=== PATIENT | female | born 1945 | race Caucasian/White ===

== ENCOUNTER 2016-07-12 05:42 | Inpatient (IN) | payer MEDICARE ==
[2016-07-11 14:05] LABS: APPEARANCE CLEAR (CLEAR); BILIRUBIN NEGATIVE (NEGATIVE); COLOR STRAW (YELLOW); GLUCOSE NEGATIVE (NEGATIVE); KETONE NEGATIVE (NEGATIVE); LEUKOCYTE ESTERASE NEGATIVE (NEGATIVE); NITRITE NEGATIVE (NEGATIVE); PROTEIN 1+ mg/dL (NEGATIVE); UROBILINOGEN NORMAL (NORMAL)
[2016-07-11 14:06] LABS: BACTERIA FEW /hpf (NONE SEEN); EPITHELIAL CELLS OCC /hpf (0-5); RED CELLS - URINE OCC /hpf (0-5); WHITE CELLS - URINE OCC /hpf (0-5)
[2016-07-11 14:14] LABS: HEMATOCRIT 36.6 % (36.0-48.0); MCH 30.2 pg (26.0-34.0); MCHC 32.8 g/dL (31.0-37.0); MCV 92.2 fL (80.0-100.0); MEAN PLATELET VOLUME 13.3 fL (7.4-10.4); RBC 3.97 10x6/uL (4.00-5.40); RDW 13.7 % (11.5-14.5); WBC 7.6 10x3/uL (4.8-10.8)
[2016-07-11 14:23] LABS: APTT 26.6 SECONDS (22.8-39.4); INR 1.05 (0.85-1.17); PROTIME 13.6 SECONDS (11.6-15.0)
[2016-07-11 14:28] LABS: ALBUMIN 4.3 g/dL (3.4-5.0); ANION GAP 18.1 mmol/L (8-16); BILIRUBIN - TOTAL 0.26 mg/dL (0.2-1.3); CALCIUM 9.6 mg/dL (8.5-10.1); CARBON DIOXIDE 24.9 mmol/L (21.0-32.0); CREATININE - SERUM 1.4 mg/dL (0.6-1.3); PROTEIN - SERUM 7.7 g/dL (6.4-8.2)
[~2016-07-12] VITALS: Ht 157.5 cm; Wt 85.1 kg
[2016-07-12] VITALS (55 sets, daily range): BP systolic 111–191; BP diastolic 41–83; Ht 157.5 cm; Wt 85.1 kg
[~2016-07-12 05:42] MED LIST: ACULAR 0.5 % OPH5 ML LEFT EYE; CALAN SR240 MG PO; CATAPRES0.1 MG PO; FUROSEMIDE20 MG PO; GEMFIBROZIL600 MG PO; GLUCOPHAGE1000 MG PO; HUMALOG 30100 UNITS/ SC; ISTALOL LEFT EYE; LANTUS INSULIN10 ML SC; LIPITOR80 MG PO; LISINOPRIL10 MG PO; MOBIC7.5 MG PO; PEPCID20 MG PO; PLAVIX75 MG PO; SIMBRINZA 1%-0.28 ML LEFT EYE; TERAZOSIN HCL2 MG PO
[2016-07-12 07:05] LABS: POTASSIUM - SERUM 3.9 mmol/L (3.5-5.1)
--- NOTE | 2016-07-12 10:45 | NUR ---
RECIEVED TO ROOM CV05 VIA BED WITH HOSPITAL STAFF. O2 AT 9L SIMPLE MASK. PLASMALYTE INFUSING AT 100 CC/HR. CLEVIPREX AT 11 CC/HR. PT EASILY AROUSABLE. ICE PACK APPLIED TO RIGHT NECK. ULRICH CATH WITH CLEAR YELLOW URINE. TEDS AND SCDS IN PLACE. LEFT A-LINE WITH GOOD WAVE FORM NOTED.
--- NOTE | 2016-07-12 14:45 | NUR ---
DR. ESCAMLILA AWARE OF DECREASED URINE OUTPUT. NO NEW ORDERS.
--- NOTE | 2016-07-12 18:37 | NUR ---
DR. MAO AT BEDSIDE. PT DENIES CURRENT NEEDS OR QUESTIONS.
--- NOTE | 2016-07-12 19:30 | NUR ---
SHIFT ASSESSMENT COMPLETED. SEE ASSESSMENT FLOWSHEET. NEURO INTACT. HX OF STROKE WITH RIGHT SIDE WEAKNESS SOMEWHAT. PUPILS NOT REACTIVE TO LIGHT AT THIS TIME. HX OF CATARACTS/INCREASED PRESSURES TO EYES. LEFT RADIAL A-LINE INTACT. FLEXION BOARD INTACT. CAP REFILL <3 SECONDS. TITRATING CLEVIPREX TO KEEP SBP , 140MMHG. WILL MONITOR.
--- NOTE | 2016-07-12 21:45 | NUR ---
2100 MEDS GIVEN. FSBS ASSESSED. SUGAR-297. WILL MONITOR.
--- NOTE | 2016-07-12 23:40 | NUR ---
REASSESSMENT COMPLETED. SEE ASSESSMENT FLOWSHEET. NEURO INTACT. NO NEW ACUTE CHANGES NOTED. AWAKENS EASILY AND ANSWERS QUESTIONS APPROPRIATELY. WILL MONITOR.
[2016-07-13] VITALS (59 sets, daily range): BP systolic 102–163; BP diastolic 34–91
--- NOTE | 2016-07-13 01:25 | NUR ---
PULLED UP IN BED PER REQUEST FOR SLIDING DOWN. REPOSITIONED IN BED. TITRATING CLEVIPREX GTT TO EFFECT. WILL MONITOR.
--- NOTE | 2016-07-13 01:45 | NUR ---
PO CLONIDINE GIVEN SCHEDULED.
--- NOTE | 2016-07-13 03:15 | NUR ---
REASSESSMENT COMPLETED. SEE ASSESSMENT FLOWSHEET. DECREASED CLEVIPREX GTT TO 4MG/HR. EMPTIED FAINA DRAIN OF SEROSANGUINOUS DRAINAGE. PLACED SUPPLIED AT BEDSIDE FOR UPCOMING POSSIBLE REMOVAL OF FAINA DRAIN. WILL MONITOR.
--- NOTE | 2016-07-13 05:00 | NUR ---
DECREASED CLEVIPREX TO 3MG/HR.
--- NOTE | 2016-07-13 06:00 | NUR ---
FAMILY AT BEDSIDE FOR VISITATION. QUESTIONS ANSWERED. BROUGHT IN EYE DROPS FROM HOME AND GAVE INSTRUCTIONS ON HOW TO GIVE THEM. WILL MONITOR.
--- NOTE | 2016-07-13 13:30 | NUR ---
CLEVIPREX TITRATED OFF.
--- NOTE | 2016-07-13 13:33 | NUR ---
1100 ASSESSMENT UNCHANGED EXCEPT NOTED. KERI NICOLAS'D PER ORDER.
--- NOTE | 2016-07-13 19:15 | NUR ---
SHIFT ASSESSMENT COMPLETED. SEE ASSESSMENT FLOWSHEET. NEURO INTACT. EQUAL AND STRONG HAND GRASP BILATERALLY. O2 @ 2LPM/NC. LEFT SC CVL INTACT @ 30ML/HR. DUE TO VOID. DENIES NEED TO URINATE AT THIS TIME. WILL MONITOR.
--- NOTE | 2016-07-13 20:42 | NUR ---
2100 MEDS GIVEN. FSBS ASSESSED-311, INSULIN GIVEN PRESCRIBED. WILL MONITOR.
--- NOTE | 2016-07-13 21:10 | NUR ---
CLEVIPREX CONNECTED AND TURNED ON TO GET B/P < 140MMHG. FAMILY AT BEDSIDE, UPDATE GIVEN. WILL MONITOR.
--- NOTE | 2016-07-13 22:00 | NUR ---
CLEVIPREX TURNED OFF. WILL MONITOR.
[2016-07-14] VITALS (28 sets, daily range): BP systolic 84–160; BP diastolic 37–66
--- NOTE | 2016-07-14 | NUR ---
REASSESSMENT COMPLETED. SEE ASSESSMENT FLOWSHEET. NO NEW ACUTE CHANGES NOTED. NEW BAG OF PLASMALYTE HUNG. WILL CONTINUE TO MONITOR.
--- NOTE | 2016-07-14 01:35 | NUR ---
ASSISTED WITH SITTING UP ON SIDE OF BED TO BLOW NOSE. SMALL AMT OF BLOODY DRAINAGE NOTED. ASSISTED TO BATHROOM TO ATTEMPT TO URINATE. CLEAR, YELLOW URINE NOTED-200ML. WASHED HER HANDS. BACK TO BED WITH ASSIST. UNSTEADY GAIT SOMEWHAT. HUMIDIFICATION APPLIED TO O2. WILL MONITOR.
--- NOTE | 2016-07-14 03:40 | NUR ---
REASSESSMENT COMPLETED. SEE ASSESSMENT. NO NEW ACUTE CHANGES NOTED. AWAKENS EASILY. NO NEURO CHANGES.
--- NOTE | 2016-07-14 05:00 | NUR ---
ASSISTED UP TO BATHROOM TO VOID. MISSED THE NURSES' HAT BUT STREAM WAS MORE FORCEFUL AND LONGER THAN LAST VOID. NEEDS ASSISTANCE WITH AMBULATING. HER KNEES AREN'T "AWAKE" YET. BACK TO BED. MONITORS AND IVF TURNED BACK ON. WILL MONITOR.
--- NOTE | 2016-07-14 05:35 | NUR ---
AM LABS DRAWN FROM LEFT SC CVL. ASSISTED WITH TURNING TO LEFT SIDE. WILL MONITOR.
[2016-07-14 05:51] LABS: CARBON DIOXIDE 22.5 mmol/L (21.0-32.0); CREATININE - SERUM 2.3 mg/dL (0.6-1.3)
[2016-07-14 05:52] LABS: HEMATOCRIT 28.7 % (36.0-48.0); HEMOGLOBIN 9.2 g/dL (12-16); MCH 29.7 pg (26.0-34.0); MCHC 32.1 g/dL (31.0-37.0); MCV 92.6 fL (80.0-100.0); MEAN PLATELET VOLUME 13.3 fL (7.4-10.4); POTASSIUM - SERUM 4.5 mmol/L (3.5-5.1); RBC 3.1 10x6/uL (4.00-5.40); RDW 13.8 % (11.5-14.5)
--- NOTE | 2016-07-14 06:37 | NUR ---
AM LAB GLUCOSE TREATED WITH SLIDING SCALE INSULIN. SISTER AND DAUGHTER LEAVING BEDSIDE. WILL MONITOR.
--- NOTE | 2016-07-14 07:50 | NUR ---
UP TO CHAIR FOR BREAKFAST.
--- NOTE | 2016-07-14 12:51 | OP ---
PATIENT NAME: ADRIA KHALIL MEDICAL RECORD: [id number] :47 LOCATION:[id number] ADMISSION DATE:07/12/16 SURGEON: BERTRAND ESCAMILLA MD DATE OF OPERATION: 07/12/2016 SURGEON: Bertrand Escamilla MD. ANESTHESIA: General endotracheal, Dr. Rodriguez. OPERATION PERFORMED: Right carotid endarterectomy with patch angioplasty. PREOPERATIVE DIAGNOSIS: Critical right internal carotid artery stenosis. POSTOPERATIVE DIAGNOSIS: Critical right internal carotid artery stenosis. INDICATION FOR OPERATION: Critical right internal carotid artery stenosis. FINDINGS AT OPERATION: Severe greater than 90% area of stenosis of the takeoff right internal carotid artery. There were no EEG changes with clamping or unclamping of the carotid artery. ESTIMATED BLOOD LOSS: Less than 100 cc. DESCRIPTION OF PROCEDURE: After informed consent, adequate preoperative medication evaluation, the patient was brought to the operating room, placed on the table in the supine position. After induction of general endotracheal anesthesia and application of appropriate monitoring devices, the right neck and chest were prepped and draped in a sterile field, utilizing Betadine scrub, alcohol, and Betadine solution. A Betadine-impregnated drape was also used. An oblique incision was made in the skin crease. Dissection carried down the fascia. Hemostasis maintained with electrocautery. Facial vein was identified and divided. Utilizing sharp dissection, the common carotid, internal carotid arteries were dissected free from surrounding structures, protecting the neurological structures. The patient was given a calculated dose of heparin, after 3 minutes, clamps were applied. After 2 minutes, no EEG changes. The arteriotomy was made and extended with Hill scissors. Artery underwent endarterectomy sharply. Artery underwent extensive debridement and irrigation. Utilizing a CorMatrix vascular patch and running 7-0 Prolene suture, the arteriotomy was closed with patch angioplasty technique. All maneuvers to remove trapped air were performed. The clamps were removed sequentially. There were no EEG changes. The patient was given a calculated dose of protamine to reverse the heparin. Hemostasis was assured. A #7 Elliot-Daly drain was left in the depth of wound and brought through the base of the neck. Neck was again irrigated. Instrument count and sponge count were correct times 2. Neck was closed in layers utilizing 3-0 Vicryl on the platysma, 5-0 subcuticular Monocryl on the skin. Sterile dressings were applied. The patient tolerated the procedure well and was transferred to the ICU in satisfactory condition. TRANSINT:[id number] Voice Confirmation ID: [id number] DOCUMENT ID: [id number] OPERATIVE REPORT [id number] ADRIA KHALIL EDWARD MD at 1251 CC: [id number] DICTATION DATE: 07/12/16 1012 ANIMAL CARETAKER SUPERVISOR: 07/12/16 1225 [place] [address]
--- NOTE | 2016-07-14 12:51 | HP ---
PATIENT: ADRIA KHALIL [facility] MEDICAL RECORD: [id number] ACCOUNT: [id number] LOCATION:[facility]05 : 46 ADMISSION DATE: 07/12/16 HISTORY AND PHYSICAL EXAMINATION ADRIA Spencer (71yo, F) ID# [id number]. Date/Time07/11/2016 10:90SWFCD1946Service Dept.NPP_[facility] ClinicProviMarisa ESCAMILLA MDInsuranceMed Primary: [employer] (POS) Insurance # : [id number] Policy/Group # : [id number] Employer Name : UNKNOWN Prescription: ORX - Member is eligible. Chief Complaint Followup: Carotid artery stenosis GENEVA stenosis scheduled for RCEA 07/12/16 [facility] (ERX): [phone], [place] [address], , Vitals BP:150/90 sitting R arm 07/11/2016 10:28 amHR:60R/R 07/11/2016 10:28 amHt:5 ft 2 in 07/11/2016 10:12 amWt:172 lbs 07/11/2016 10:27 amBMI:31.5 07/11/2016 10:27 amAllergies Reviewed Allergies NKDAMedications Reviewed Medications Accu-Chek FastClix TEST TID06/09/16 filledsurescriptsAccu-Chek SmartView Test Buqurh39/18/17 filledPRESCRIPTION SOLUTIONSatorvastatin 80 mg tablet TK 1 T PO Q NIGHT06/11/16 filledPRESCRIPTION SOLUTIONScloNIDine HCl 0.1 mg tablet Take 1 tablet(s) 3 times a day by oral route.07/08/16 filledPRESCRIPTION SOLUTIONSclopidogrel 75 mg tablet Take 1 tablet(s) every day by oral route.07/01/16 filledPRESCRIPTION SOLUTIONSfamotidine 20 mg /15/17 filledPRESCRIPTION SOLUTIONSFluad 65yr up(PF)45 mcg(15 mcgx3)/0.5 mL intramuscular syringe ADM 0.5ML IM UTD105/19/15 filledPRESCRIPTION SOLUTIONSfluticasone 50 mcg/actuation nasal spray,iycspoayao60/10/15 filledPRESCRIPTION SOLUTIONSfurosemide 20 mg tablet TK 2 TS PO QAM UTD06/08/16 filledPRESCRIPTION SOLUTIONS gemfibrozil 600 mg oynsrz68/13/17 filledPRESCRIPTION SOLUTIONSHumaLOG 100 unit/mL subcutaneous gisvuzal98/13/17 filledPRESCRIPTION SOLUTIONSINSULIN SYRG MIS 1ML/30G005/20/16 filledPRESCRIPTION SOLUTIONSINSULIN SYRG MIS 1ML/31G006/21/16 filledPRESCRIPTION SOLUTIONSinsulin syringe-needle U-100 1 mL 30 gauge x 7/16" U WITH INSULIN PRN UP TO QID05/21/16 filledsurescriptsinsulin syringe-needle U-100 1 mL 31 gauge x 5/16" USE WITH INSULIN NEEDED UP TO FOUR TIMES D006/21/16 filledsurescriptsLantus 100 unit/mL subcutaneous solution INJECT 10 UNITS QAM AND 50 UNITS BEFORE A MEAL QPM07/03/16 filledPRESCRIPTION SOLUTIONSlisinopril 10 mg jhueuo21/20/17 filledPRESCRIPTION SOLUTIONSmeloxicam 7.5 mg tablet TK 1 T PO QD PC06/17/16 filledPRESCRIPTION SOLUTIONSmetFORMIN 1,000 mg /27/17 filledPRESCRIPTION SOLUTIONSprednisoLONE acetate 1 % eye drops,hkemoskgdk38/26/16 filledPRESCRIPTION SOLUTIONSterazosin 2 mg capsule TK 1 C PO BID06/17/16 filledPRESCRIPTION SOLUTIONSTravatan Z 0.004 % eye drops01/11/16 filledPRESCRIPTION SOLUTIONSverapamil ER (SR) 240 mg tablet,extended release TK 1 T PO D007/08/16 filledPRESCRIPTION SOLUTIONSProblems HISTORY AND PHYSICAL [id number] ADRIA KHALIL Reviewed Problems Diabetes mellitus Hyperlipidemia Essential hypertension Carotid artery stenosis, Right Renal impairment - baseline Cr 1.7 Family History Discussed Family History Mother- Cerebrovascular accidentSocial History Discussed Social History Cardiology Smoking Status: Never smoker High Cholesterol: Y High blood pressure: Y Overweight: Y Obese: Y Alcohol intake: None Surgical History Reviewed Surgical History Other - cataract Other - hysterectomy Other - tonsilectomy 07/09/16 no PA required for 07/12/16 sx per Delicia Jin @ [facility] [place]. 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 HPI Cerebral Vascular Disease Reported by patient. Associated Symptoms: no headache; no nausea; no vomiting; no tinnitus; no difficulty speaking; no lethargy; no fever; no chills; no palpitations; no syncope; no loss of consciousness Bilateral carotid stenosis\\ right greater than the left ROS HISTORY AND PHYSICAL [id number] ADRIA KHALIL Patient reports vision change (OD) but reports no dry eyes and no irritation; intraocular injections Recent cataracts. She reports no jugular vein distension and no swollen glands; carotid bruit right. She reports shortness of breath when walking but reports no chest pain, no arm pain on exertion, no shortness of breath when lying down, no palpitations, and no known heart murmur. She reports muscle aches and muscle weakness but reports no arthralgias/joint pain, no back pain, and no swelling in the extremities. She reports numbness (lower extremities bilaterally) but reports no loss of consciousness, no weakness, no seizures, no dizziness, and no headaches. She reports no fever, no night sweats, no significant weight gain, no significant weight loss, and no exercise intolerance. She reports no difficulty hearing and no ear pain. She reports no frequen t nosebleeds and no nose/sinus problems. She reports no sore throat, no bleeding gums, no snoring, no dry mouth, no mouth ulcers, no oral abnormalities, and no teeth problems. She reports no cough, no wheezing, no shortness of breath, and no coughing up bl o od. She reports no abdominal pain, no vomiting, normal appetite, no diarrhea, not vomiting blood, no nausea, and no constipation. She reports no incontinence, no difficulty urinating, no hematuria, and no increased frequency. She reports no abnormal mole, no jaundice, and no rashes. She reports no depression, no sleep disturbances, feeling safe in relationship, and no alcohol abuse. She reports no fatigue. She reports no swollen glands and no bruising. She reports no runny nose, no sinus pressure, no itchi ng, no hives, and no frequent sneezing. ROS as noted in the HPI Physical Exam Patient is a 71-year-old female. Constitutional: General Appearance healthy-appearing, well developed, and overweight. Level of Distress NAD. Ambulation ambulation with walker. Cardiovascular: Apical Impulse not displaced or no thrill. Heart Auscultation normal s1 and s2, no rubs or gallops, and RRR and murmur (systolic ejection murmur). Arterial Pulses no abdominal aorta bruits, femoral bruits, or popliteal bruits and 2+ bilateral, carotid 2+ bilateral, femoral 2+ bilateral, popliteal 2+ bilateral, and dorsalis pedis 2+ bilateral. Edema no edema or varicosities. Lungs: Repiratory Effort no dyspnea. Percussion no hyperresonance or dullness or flatness. Auscultation no wheezing, rhonchi, or rales / crackles and breathing sounds normal, good air movement, and CTA except as noted. Abdomen: Bowl Sounds normal. Inspection and Palpation no tenderness, guarding, masses, or rebound tenderness and soft and non-distended. Liver non-tender and no hepatomegaly. Spleen non-tender and no splenomegaly. Hernia none palpable. Musculoskeletal System: Gait And Stance wide-based and irregular gait and stance. Digits and Nails normal nails and no cyanosis. Neurologic: Cranial Nerves grossly intact. Reflexes DTRs 2+ bilaterally throughout. Sensation grossly intact. Lymph Nodes: Lymph Nodes no cervical LAD, supraclavicular LAD, axillary LAD, or inguinal LAD. Eyes: Lids and Conjunctivae no discharge or pallor and non-injected. Pupils PERRLA. Cornea grossly intact. EOM EOMI. Lens clear. Sclera non-icteric. HISTORY AND PHYSICAL [id number] ADRIA KHALIL AMARIS Neck: Neck no masses or enlarged lymph nodes and supple, trachea midline, and carotid bruits (bilateral). Thyroid no enlargement or nodules and non-tender. Skin: Inspection and Palpation no rash, lesions, ulcers, jaundice, or abnormal nevi. Assessment / Plan bilateral carotid stenosis Right greater than the left 1. Carotid artery stenosis - Right I65.23: Occlusion and stenosis of bilateral carotid arteries CAROTID STENOSIS: CARE INSTRUCTIONS 2. Essential hypertension I10: Essential (primary) hypertension HIGH BLOOD PRESSURE: CARE INSTRUCTIONS LEARNING ABOUT HIGH BLOOD PRESSURE 3. Hyperlipidemia E78.5: Hyperlipidemia, unspecified HIGH CHOLESTEROL: CARE INSTRUCTIONS 4. Renal impairment N28.9: Disorder of kidney and ureter, unspecified 5. Diabetes mellitus E11.9: Type 2 diabetes mellitus without complications Discussion Notes bilateral carotid artery disease History of stroke History of TIA History of the visual disturbances I have discussed her disease process with her in detail as well as the alternative methods of treatment. We discussed right carotid endarterectomy and the expected benefits and risk included bleeding, infection, stroke, l oss of limb, and . She understands all of the above and wishes to proceed with planned procedure. Return to Office to see eBrtrand Escamilla MD at [facility] on or around 07/12/2016 Bertrand Escamilla MD for Surgery at [facility]_SURGERY SCHEDULE on 07/12/2016 at 07:30 AM BERTRAND ESCAMILLA MD at 1251 CC: [id number] DICTATION DATE: 07/11/16 1015 FEDERAL JUDGE: ROSMERY 07/11/16 1246 ADM IN [facility] [address] [place] [address]
--- NOTE | 2016-07-14 15:56 | NUR ---
PT NOTED TO BE ASLEEP WITH HR IN THE UPPER 40'S. WOKE PT UP HR REMAINS IN THE 40'S. BP 87/41. EKG OBTAINED. ABG AND STAT LAB.
[2016-07-14 16:25] LABS: ANION GAP 18.7 mmol/L (8-16); CALCIUM 7.7 mg/dL (8.5-10.1); CARBON DIOXIDE 21.5 mmol/L (21.0-32.0); CREATININE - SERUM 2.5 mg/dL (0.6-1.3)
[2016-07-14 16:29] LABS: POTASSIUM - SERUM 5.2 mmol/L (3.5-5.1)
--- NOTE | 2016-07-14 16:38 | NUR ---
DR. ESCAMILLA NOTIFIED OF EKG CHANGE. NEW ORDER RECIEVED.
--- NOTE | 2016-07-14 17:05 | NUR ---
SPOKE WITH DR. CURIEL ABOUT CONSULT. AGREES WITH DR. ESCAMILLA'S ARNEL TREATMENT PLAN AND WILL BE UP TO SEE THE PT SHORTLY.
[2016-07-14 17:22] LABS: HEMATOCRIT 27.9 % (36.0-48.0); MCH 30.4 pg (26.0-34.0); MCHC 32.3 g/dL (31.0-37.0); MCV 94.3 fL (80.0-100.0); MEAN PLATELET VOLUME 13.3 fL (7.4-10.4); RBC 2.96 10x6/uL (4.00-5.40); RDW 13.7 % (11.5-14.5); WBC 9.5 10x3/uL (4.8-10.8)
--- NOTE | 2016-07-14 17:31 | NUR ---
DOBUTAMINE STARTED AT 1717 PER ORDER. PT NOW WITH HR OF 61. BP 112/49.
--- NOTE | 2016-07-14 18:12 | NUR ---
SPOKE WITH DR. BILLINGLSEY ABOUT CONSULT. NO ADDITIONAL ORDERS AT THIS TIME. WILL BE UP TO SEE PT SHORTLY. UPDATE GIVEN TO DR. ESCAMILLA. STATES HOLD VERAPAMIL AND CLONIDINE TONIGHT AND IN THE AM.
--- NOTE | 2016-07-14 19:40 | NUR ---
INSURANCE DEFENSE ATTORNEY PER FLOWSHEET. PT AWAKE AND ORIENTED. VSS. CM - JUNCTIONAL. DENIES SOB. IVFS INFUSING TO L DLSC, DSG C/D/I - SEE FLOWSHEET. R NECK SITE WNL. PT DENIES PAIN, "JUST A LITTLE SORE WITH SWALLOWING".. ALARMS ON AND C/L IN USE.
--- NOTE | 2016-07-14 19:55 | NUR ---
CM - SR 63, DOBUTAMINE GTT TO 3MCG/KG/MIN PER MD ORDER.
--- NOTE | 2016-07-14 20:00 | NUR ---
DR. BILLINGSLEY IN TO SEE PT. NEW ORDERS REC'D. PT UP TO BR. VOIDED 200ML YELLOW URINE - SAMPLE OBTAINED. NICOLASA-CARE PER PT. UP IN CHAIR.
--- NOTE | 2016-07-14 20:45 | NUR ---
DR. ESCAMILLA NOTIFIED OF CM - SR, SBP 139 AND STATUS REPORT. NEW ORDERS REC'D.
[2016-07-14 20:49] LABS: CREATININE - URINE 132.3 mg/dL (30-125); PRO/CRE RATIO URINE 0.3 mg/g; PROTEIN - URINE 35.9 mg/dL (0.0-11.9)
[2016-07-14 20:51] LABS: APPEARANCE CLEAR (CLEAR); BILIRUBIN NEGATIVE (NEGATIVE); COLOR YELLOW (YELLOW); GLUCOSE NEGATIVE (NEGATIVE); KETONE NEGATIVE (NEGATIVE); LEUKOCYTE ESTERASE TRACE (NEGATIVE); NITRITE NEGATIVE (NEGATIVE); PROTEIN NEGATIVE (NEGATIVE); UROBILINOGEN NORMAL (NORMAL)
[2016-07-14 20:52] LABS: BACTERIA FEW /hpf (NONE SEEN); HYALINE CAST 0-5 /lpf (NONE SEEN); MUCUS <1+ /lpf (NONE SEEN); RED CELLS - URINE 0-5 /hpf (0-5)
--- NOTE | 2016-07-14 21:12 | NUR ---
FAMILY AT BS. PT UP IN CHAIR EATING SALAD. VSS. NO SIGN OF DISTRESS..UPDATE GIVEN AND QUESTIONS ANSWERED.
--- NOTE | 2016-07-14 21:45 | NUR ---
COMPLETE BATH AND GOWN CHANGE. PT BRUSHED TEETH. BACK TO BED. ALARMS ON AND C/L IN REACH. C/O KNEE SORENESS - ELEVATED ON PILLOW, PT DENIES NEED FOR PRN PAIN MED.
--- NOTE | 2016-07-14 23:18 | NUR ---
UP TO BSC. VOIDED 100ML CLEAR, YELLOW URINE. NICOLASA-CARE PER PT - HANDS WASHED AND BACK TO BED. PT AGAIN C/O R KNEE PAIN - ADMIN PRN ULTRAM - WILL CONT CLOSE MONITORING. SEE REASSESSMENT.
[2016-07-15] VITALS (33 sets, daily range): BP systolic 104–202; BP diastolic 44–80
--- NOTE | 2016-07-15 01:02 | NUR ---
RESTING WITH EYES CLOSED, VSS. NO SIGN OF DISTRESS.
--- NOTE | 2016-07-15 01:28 | NUR ---
UP TO BR. VOIDED 375ML CLEAR, YELLOW URINE. NICOLASA-CARE PER PT AND BACK TO BED. ALARMS ON AND C/L IN REACH.
--- NOTE | 2016-07-15 03:37 | NUR ---
PT UP TO BR. REASSESSMENT PER FLOWSHEET, NO ACUTE CHANGES. NEURO WNL. R NECK SITE UNCHANGED. PT DENIES NEEDS.
--- NOTE | 2016-07-15 05:11 | NUR ---
AM LAB DRAWN. PT ASSISTED TO R SIDE WITH PILLOWS. VSS.
[2016-07-15 05:18] LABS: HEMATOCRIT 26.5 % (36.0-48.0); HEMOGLOBIN 8.6 g/dL (12-16); MCH 30.1 pg (26.0-34.0); MCHC 32.5 g/dL (31.0-37.0); MCV 92.7 fL (80.0-100.0); MEAN PLATELET VOLUME 13.1 fL (7.4-10.4); RBC 2.86 10x6/uL (4.00-5.40); RDW 13.6 % (11.5-14.5)
[2016-07-15 05:22] LABS: WBC 6.5 10x3/uL (4.8-10.8)
[2016-07-15 05:30] LABS: ANION GAP 14.2 mmol/L (8-16); CALCIUM 7.8 mg/dL (8.5-10.1); CARBON DIOXIDE 23.2 mmol/L (21.0-32.0); CREATININE - SERUM 2.1 mg/dL (0.6-1.3)
[2016-07-15 05:34] LABS: POTASSIUM - SERUM 4.4 mmol/L (3.5-5.1)
--- NOTE | 2016-07-15 06:29 | NUR ---
AM LAB WNL. FAMILY AT BS VISITING. PT UP IN CHAIR AFTER GOING TO BR. HAIR WASHED AND COMBED. VSS. C/L IN REACH.
--- NOTE | 2016-07-15 07:26 | NUR ---
DR. ESCAMILLA NOTIFIED OF SBP 160-170 - NEW ORDER REC'D. DOBUTAMINE D/C'D. RENAL U/S IN PROCESS. REPORT GIVEN.
--- NOTE | 2016-07-15 09:04 | NUR ---
FAMILY AT BEDSIDE FOR 0900 VISITATION. MORNING MEDICATIONS GIVEN. PT NOW RESTING IN BED BEFORE PHYSICAL THERAPY. VOLTAREN GEL HAS BEEN APPLIED TO KNEE. RIGHT KNEE SWOLLEN AND RED. PT C/O PAIN AND STIFFNESS WITH AMBULATION WHEN UP FOR TOILETING. 500ML OF YELLOW URINE OUTPUT.
--- NOTE | 2016-07-15 09:16 | NUR ---
CAME OUT TO REVIEW EYE DROPS ADMINISTRATION SCHEDULE. SAYS THERE HAS BEEN SOME CONFUSION WITH THE MEDICATIONS. SAYS PATIENT IS SUPPOSED TO GET ISTALOL ONCE DAILY, SIMBRINZA BID, AND KETOROLAC TROMETHAMINE ONCE DAILY. REVIEWED HOME MEDICATION LIST AND SAYS IT IS INCORRECT. CORRECTED THE MED REC WHILE HE WAS PRESENT AND REVIEWED AGAIN.
--- NOTE | 2016-07-15 09:35 | NUR ---
STEP DAUGHTER [address] [phone] SISTER IN [facility] STAYING AT [facility] CAN BE REACHED AT [phone] VIKASH ALLEN
--- NOTE | 2016-07-15 10:15 | NUR ---
PIV TO LEFT ARM REMOVED, TIP INTACT. NO BLEEDING. PT UP TO TOILET. 500ML URINE OUTPUT.
--- NOTE | 2016-07-15 10:29 | NUR ---
Nutrition follow-up: Diet: Regular PO intake 100% of most meals Labs reviewed Will provide food choices and honor food preferences. RDN following.
--- NOTE | 2016-07-15 10:52 | NUR ---
PT UP WALKING WITH PHYSICAL THERAPY AT THIS TIME. IS HAVING STILL HAVING PAIN AND STIFFNESS IN KNEES.
--- NOTE | 2016-07-15 11:15 | NUR ---
SPOKE WITH DR BILLINGSLEY WHILE HE WAS MAKING ROUNDS ABOUT ALLOWING PATIENT TO HAVE HER CLONIDINE 0.1MG FOR HER BP. HAS BEEN 170'S SBP. OK TO RESTART CLONIDINE. STILL HOLD VERAPAMIL. WANTS FLUIDS DISCONTINUED ONCE THE CURRENT BAG IS COMPLETED.
--- NOTE | 2016-07-15 12:30 | NUR ---
PT ASSISTED UP TO TOILET. 600ML YELLOW URINE OUTPUT.
--- NOTE | 2016-07-15 13:29 | NUR ---
PT SLEEPING AT THIS TIME. NO DISTRESS NOTED. 93% O2 SAT ON ROOM AIR.
--- NOTE | 2016-07-15 14:50 | NUR ---
PT UP IN CHAIR. HAS WALKED AFTERNOON WALK WITH PHYSICAL THERAPY. FULL LINEN CHANGE PROVIDED. PT DENIES ANY FURTHER NEEDS AT THIS TIME. CALL LIGHT IN REACH.
--- NOTE | 2016-07-15 15:57 | NUR ---
PT ASSISTED UP TO TOILET. 600ML LIGHT YELLOW URINE. HAD 450 ML LIGHT YELLOW URINE IN COLLECTION HAT FROM WHEN PHYSICAL THERAPY ASSISTED TO TOILET BEFORE WALKING.
--- NOTE | 2016-07-15 16:12 | NUR ---
PT MONITOR ALERTING TO SBP 180'S. RECHECKED. READING OF 202/80. GAVE CLONIDINE THAT WAS DUE AT 16:[address] ESCAMILLA
--- NOTE | 2016-07-15 17:00 | NUR ---
PT UP IN CHAIR FOR DINNER.
--- NOTE | 2016-07-15 17:30 | NUR ---
CURRENT BAG OF PLASMALYTE COMPLETE. WILL D/C ORDER ASKED BY DR BILLINGSLEY ONCE BAG FINISHED.
--- NOTE | 2016-07-15 18:04 | NUR ---
FAMILY AT BEDSIDE FOR VISITATION
--- NOTE | 2016-07-15 18:05 | NUR ---
WEANED PT OFF OF CLEVIPREX. SBP WAS 104. SUBSEQUENT READ WAS 124.
--- NOTE | 2016-07-15 19:35 | NUR ---
REC'D TO CARE, IN BED, RESTING. VSS. PT REPORTS "FEELING BETTER". ONLY C/O CHRONIC ARTHRITIC PAIN - L KNEE WITH SWELLING AND REDNESS NOTED, ELEVATED, WILL APPLY HEAT NEEDED. VSS. R NECK SITE WNL. NEURO WNL. ALARMS ON AND C/L IN REACH.
--- NOTE | 2016-07-15 21:00 | NUR ---
SISTERS AT BS. UPDATE GIVEN AND QUESTIONS ANSWERED.
--- NOTE | 2016-07-15 22:30 | NUR ---
NEURO WNL. PT UP TO BSC, VOIDED 250ML CLEAR, YELLOW URINE, NICOLASA-CARE PER PT. AND BACK TO BED.
--- NOTE | 2016-07-15 23:36 | NUR ---
REASSESSMENT PER FLOWSHEET. NO ACUTE CHANGES. ADMIN PRN ULTRAM FOR KNEE PAIN. UP IN CHAIR PER REQUEST, L LEG ELEVATED. ALARMS ON AND C/L IN REACH.
[2016-07-16] VITALS (24 sets, daily range): BP systolic 101–155; BP diastolic 43–67
--- NOTE | 2016-07-16 00:41 | NUR ---
RESTING WITH EYES CLOSED, VSS. NO SIGN OF DISTRESS.
--- NOTE | 2016-07-16 03:06 | NUR ---
PT UP TO BSC, SLOW GETTING AROUND. BACK TO BED. L LEG ELEVATED, PILLOWS FOR COMFORT. SEE REASSESSMENT. ALARMS ON AND C/L IN REACH.
--- NOTE | 2016-07-16 04:15 | NUR ---
PT ASSISTED TO R SIDE WITH PILLOWS FOR COMFORT. VSS.
--- NOTE | 2016-07-16 06:21 | NUR ---
FAMILY AT BS, UPDATE GIVEN AND QUESTIONS ANSWERED.. PT UP IN CHAIR. C/L IN REACH.
[2016-07-16 06:25] LABS: HEMATOCRIT 26.2 % (36.0-48.0); HEMOGLOBIN 8.4 g/dL (12-16); MCHC 32.1 g/dL (31.0-37.0); MCV 93.6 fL (80.0-100.0); MEAN PLATELET VOLUME 12.9 fL (7.4-10.4); RBC 2.8 10x6/uL (4.00-5.40); RDW 13.5 % (11.5-14.5); WBC 6.4 10x3/uL (4.8-10.8)
[2016-07-16 06:41] LABS: ALBUMIN 2.7 g/dL (3.4-5.0); ANION GAP 13.3 mmol/L (8-16); BILIRUBIN - TOTAL 0.25 mg/dL (0.2-1.3); CALCIUM 8.2 mg/dL (8.5-10.1); CREATININE - SERUM 1.6 mg/dL (0.6-1.3); POTASSIUM - SERUM 4.3 mmol/L (3.5-5.1)
--- NOTE | 2016-07-16 07:15 | NUR ---
REPORT RECIEVED FROM TAB MACHINE OPERATOR NURSE. PT RESTING IN RECLINER QUIETLY. NO S/SX OF ACUTE DISTRESS NOTED AT THIS TIME. VSS. INCISION TO R NECK WELL APPROXIMATED AND OPEN TO AIR. NO S/SX OF INFECTION NOTED. DRESSING TO RIGHT CHEST C/D/I. DOUG CHECKS WNL. CALL LIGHT WITHIN REACH. WILL CONT TO MONITOR FOR CHANGES. ASSESSMENT COMPLETE PER FLOWSHEET.
--- NOTE | 2016-07-16 07:45 | NUR ---
PT C/O KNEE PAIN TO LEFT KNEE. DR. CROFT AT BEDSIDE. REPORTED SWELLING AND REDNESS TO KNEE. URIC ACID LEVEL ORDERED.
--- NOTE | 2016-07-16 08:30 | NUR ---
URIC ACID LEVEL RECIEVED. CALLED DR. CROFT WITH RESULTS. STATES HE WOULD LIKE TO ORDER COLCHISINE, BUT WOULD LIKE TO GET THE ORDER APPROVED FROM [facility]. WILL CONTACT [facility] FOR APPROVAL.
--- NOTE | 2016-07-16 09:00 | NUR ---
UP WALKING WITH PT.
--- NOTE | 2016-07-16 11:00 | NUR ---
SPOKE WITH DR. MORAN. STATED IT WAS OKAY TO GIVE A ONE TIME DOSE OF COLCHICINE.
--- NOTE | 2016-07-16 13:00 | NUR ---
ASSISTED TO BSC. VOIDED 400CC OF LARA COLORED URINE.
--- NOTE | 2016-07-16 15:00 | NUR ---
FAMILY AT BEDSIDE.
--- NOTE | 2016-07-16 16:00 | NUR ---
Is the patient Alert and Oriented? Yes 0 * How many steps to enter\exit or inside your home? 3 0 * PCP DR. CROFT 0 * Pharmacy [facility] 0 * Preadmission Environment Home with Family 0 * ADLs Independent 0 * Equipment Walker 0 * List name and contact numbers for known caregivers / representatives who currently or will assist patient after discharge: SPOUSE: TINA [phone] OR [phone] 0 * Community resources currently utilized None 0 * Additional services required to return to the preadmission environment? No 0 * Can the patient safely return to the preadmission environment? Yes 0 * Has this patient been hospitalized within the prior 30 days at any hospital? No PATIENT IS AWAKE AND ALERT. SHE STATES SHE LIVES AT HOME WITH HER , TINA. HE WILL BE AVAILABLE TO DRIVE HER HOME AT DISCHARGE. PATIENT'S PCP IS DR. CROFT. SHE GETS HER MEDS FROM [facility]. PATIENT HAS A WALKER. SHE STATES SHE HAD HOME HEALTH MANY YEARS AGO BUT DOES NOT RECALL THE NAME OF THE AGENCY. PATIENT STATES THERE ARE 3 STEPS TO ENTER HER HOME. NO DISCHARGE NEEDS AT THIS TIME.
--- NOTE | 2016-07-16 19:15 | NUR ---
REC'D TO CARE, SITTING UP IN CHAIR. VSS. PT DENIES NEEDS AT THIS TIME. ALARMS ON AND C/L IN REACH.
--- NOTE | 2016-07-16 20:24 | NUR ---
JULIO CÉSAR AT BS PER PT REQUEST. B/P 108/34 NOW, DOPAMINE GTT AT 7MCG/KG/MIN.
--- NOTE | 2016-07-16 20:45 | NUR ---
PT VOIDED 250ML CLEAR, YELLOW URINE. COMPLETE BATH, PM CARE DONE. GOWN AND LINENS CHANGED. BACK TO BED.
--- NOTE | 2016-07-16 21:00 | NUR ---
SISTERS AT , UPDATE GIVEN AND QUESTIONS ANSWERED. ADMIN PO MED AND INSULIN PER ORDERS. L LEG ELEVATED ON PILLOW. C/L IN REACH.
--- NOTE | 2016-07-16 22:13 | NUR ---
REPOSITIONED TO R SIDE, KNEE ELEVATED. PRN ULTRAM GOVE PER REQUEST. VSS. DENIES OTHER NEEDS. C/L IN REACH.
--- NOTE | 2016-07-16 23:00 | NUR ---
REASSESSMENT PER FLOWSHEET. PT "UNCOMFORTABLE". UP TO BSC - NICOLASA-CARE DONE AND BARRIER CREAM APPLIED FOR C/O SORENESS. UP IN CHAIR PER REQUEST. VSS, C/L IN REACH.
[2016-07-17] VITALS (8 sets, daily range): BP systolic 102–158; BP diastolic 38–60
--- NOTE | 2016-07-17 01:30 | NUR ---
PT REMAINS UP IN CHAIR. RESTING WITH EYES CLOSED, VSS.
--- NOTE | 2016-07-17 02:20 | NUR ---
PT UP TO BSC WITH ASSIST. BACK TO CHAIR. STILL VERY SORE IN THE L KNEE - ELEVATED L LEG ON PILLOW. C/L IN REACH.
--- NOTE | 2016-07-17 03:42 | NUR ---
REASSESSMENT PER FLOWSHEET. VSS. NEURO WNL. PT DENIES ANY NEEDS AT THIS TIME. C/L IN REACH.
[2016-07-17 05:57] LABS: BASOPHILS 0.4 % (0.0-2.0); EOSINOPHILS 4.8 % (0-7); HEMATOCRIT 27.6 % (36.0-48.0); HEMOGLOBIN 8.9 g/dL (12-16); IMMATURE GRANULOCYTES 0.4 % (0-5); LYMPHOCYTES 21.7 % (15-50); MCHC 32.2 g/dL (31.0-37.0); MCV 92.9 fL (80.0-100.0); MEAN PLATELET VOLUME 12.5 fL (7.4-10.4); MONOCYTES 12.6 % (2-11); NEUTROPHILS 60.1 % (40-80); PLATELET COUNT 192 10x3/uL (130-400); RBC 2.97 10x6/uL (4.00-5.40); RDW 13.6 % (11.5-14.5); WBC 7.2 10x3/uL (4.8-10.8)
[2016-07-17 06:39] LABS: ANION GAP 15.3 mmol/L (8-16); CALCIUM 8.7 mg/dL (8.5-10.1); CREATININE - SERUM 1.6 mg/dL (0.6-1.3); POTASSIUM - SERUM 4.3 mmol/L (3.5-5.1)
--- NOTE | 2016-07-17 09:00 | NUR ---
PT UP IN CHAIR AT BEDSIDE. HAS BEEN ASSISTED TO BEDSIDE TOILET AND NOW IN CHAIR FOR BREAKFAST. FAMILY AT BEDSIDE. DR CROFT HAS BEEN IN TO SEE PATIENT. EXPECTS HER TO BE ABLE TO DISCHARGE THIS AFTERNOON. WILL BE AROUND HOSPITAL TODAY FOR WHEN SHE IS DISCHARGED INSTEAD OF DRIVING BACK HOME. PT LEFT KNEE IS STILL SWOLLEN. REDNESS HAS REDUCED SOEM FROM FRIDAY WHEN I WAS LAST ASSIGNED TO PATIENT. SHE IS MUCH MORE STIFF WITH MOVEMENT HOWEVER, AND WHEIGHT-BEARING HAS BECOME MUCH MORE DIFFICULT FOR AMBULATION. NO LONGER ABLE TO TOLERATE GOING TO RESTROOM AND HAS TO USE BEDSIDE COMMODE. PT STILL HAS NOT HAD A BOWEL MOVEMENT, AND SAYS WILL NOT GO HERE. BOWEL SOUNDS ARE AUDIBLE.
[2016-07-17] MEDS ORDERED: NORVASC5 MG PO (10:09)
[2016-07-17] MEDS ORDERED: LISINOPRIL10 MG PO (10:10)
[2016-07-17] MEDS ORDERED: ASPIRIN81 MG PO (10:10)
[2016-07-17] MEDS ORDERED: VOLTAREN100 GM TOPICAL (10:11)
--- NOTE | 2016-07-17 10:53 | NUR ---
PT GIVEN 2ND DOSE OF COLCHICINE REQUESTED BY JULI SPIVEY SO THAT PATIENT HAD BOTH DOSES THAT WERE DUE PRIOR TO HER LEAVING.
--- NOTE | 2016-07-17 11:30 | NUR ---
LEFT SUBCLAVIAN IV REMOVED, TIP INTACT. DISCHARGE TEACHING PROVIDED. REVIEWED NEW MEDICATIONS WITH PATIENT AND INSTRUCTED TO STOP VERAPAMIL. FOLLOW UP APPOINTMENTS REVIEWED.
--- NOTE | 2016-07-17 12:46 | NUR ---
PT ESCORTED TO CAR. ASSISTED IN TO CAR WITH HELP FROM PHYSICAL THERAPIST ABDOULAYE. ALL DISCHARGE PAPERWORK GIVEN TO . AGAIN REMINDED PATIENT AND TO STOP TAKING VERAPAMIL.
[2016-07-17 20:45] LABS: SPE - A/G RATIO 1.2 (0.7-1.7); SPE - ALPHA-1 GLOBULIN 0.3 g/dL (0.0-0.4); SPE - BETA GLOBULIN 0.8 g/dL (0.7-1.3); SPE - GAMMA GLOBULIN 0.6 g/dL (0.4-1.8); SPE - M-SPIKE Not Observed g/dL (Not Observed); SPE - TOTAL PROTEIN 5.6 g/dL (6.0-8.5)
--- NOTE | 2016-08-03 12:15 | DS ---
PATIENT:ADRIA VÁSQUEZ :47 MEDICAL RECORD: [id number] DISCHARGE SUMMARY ADMISSION DATE: 07/12/16 DISCHARGE DATE: 07/17/16 DISCHARGE DIAGNOSES: 1. Bilateral carotid stenosis. 2. Severe right internal carotid artery stenosis. 3. Acute renal failure. 4. Hypercholesterolemia. 5. Obesity. 6. Type 2 diabetes mellitus. 7. Hypertensive chronic kidney disease stage III. 8. Bradycardia. 9. Osteoarthritis. 10. Gout. DISCHARGE MEDICATIONS: Please see medical reconciliation form. DISPOSITION: The patient discharged home and has an appointment to see Dr. Escamilla in 2-3 weeks, appointment to see Dr. Baker to be arranged. HOSPITAL COURSE: Ms. Vásquez is admitted to the hospital and underwent right carotid endarterectomy with patch angioplasty. Postoperatively, she was mildly hypotensive and required inotropic support. She developed vmboe-ab-fraabym renal failure and was seen by renal medicine. She also developed gout in her left knee addressed by Dr. Baker. She improved to the point she was able to ambulate and taking a diet. She is neurologically intact. She has been given discharge instructions and wound precautions and will be seen as above. TRANSINT:[id number] Voice Confirmation ID: [id number] DOCUMENT ID: [id number] SAGAR ESCAMILLA MD at 1215 CC: [id number] DICTATION DATE: 07/27/16 1157 OVERCOIL STEPPER: 07/27/162025 DIS IN 07/17/16 [facility] [address] [id number]
== END 2016-07-17 12:51 | disposition home or self-care (01) | DRG 38 ==
LOC: D.SDCHOLD 05:42 → D.CVICU 05:42 → D.SDCHOLD 07:30 → D.CVICU 10:09
PROVIDERS: Anesthesiology; Internal Medicine Nephrology; ADMIT Internal Medicine Cardiovascular Disease
PROC: 03UK0JZ Supplement Right Internal Carotid Artery with Synthetic Substitute, Open Approach (ICD-10-PCS; 2016-07-12)
PROC: 03CK0ZZ Extirpation of Matter from Right Internal Carotid Artery, Open Approach (ICD-10-PCS; principal; 2016-07-12 07:30)
DX: I65.21 Occlusion and stenosis of right carotid artery (principal); N17.9 Acute kidney failure, unspecified; E78.00 Pure hypercholesterolemia, unspecified; E66.9 Obesity, unspecified; Z68.31 Body mass index [BMI] 31.0-31.9, adult; Z86.73 Personal history of transient ischemic attack (TIA), and cerebral infarction without residual deficits; E11.22 Type 2 diabetes mellitus with diabetic chronic kidney disease; I12.9 Hypertensive chronic kidney disease with stage 1 through stage 4 chronic kidney disease, or unspecified chronic kidney disease; N18.9 Chronic kidney disease, unspecified; R00.1 Bradycardia, unspecified; I95.81 Postprocedural hypotension; M19.90 Unspecified osteoarthritis, unspecified site; E11.65 Type 2 diabetes mellitus with hyperglycemia; M10.9 Gout, unspecified

== ENCOUNTER → 2016-09-09 11:21 | Outpatient (CLI) | payer MEDICARE ==
[2016-07-12 12:16] VITALS: BMI 31.4
[~2016-09-09 11:21] MED LIST changes: +ASPIRIN81 MG PO; +NORVASC5 MG PO; +VOLTAREN100 GM TOPICAL
== END | disposition home or self-care (01) ==
LOC: D.RAD 11:21
DX: R06.02 Shortness of breath (principal); D64.9 Anemia, unspecified

== ENCOUNTER → 2017-03-31 14:12 | Outpatient (CLI) | payer MEDICARE ==
[2016-07-12 12:16] VITALS: BMI 31.4
[~2017-03-31 14:12] MED LIST changes: +ACETAMINOPHEN325 MG PO; +AFRIN NASAL SPR15 ML NASAL; +ALBUTEROL2.5 MG/3 M INH; +BENZONATATE200 MG PO; +CALMOSEPTINE OI71 GM; +CATAPRES0.2 MG PO; +COMBIGAN OPHT DR5 ML LEFT EYE; +FERROUS SULFAT325 MG PO; +FLUTICASONE PRO16 GM NASAL; +GAS-X80 MG PO; +IPRAT-ALBUT 0.5-3 ML UPD; +MUCINEX600 MG PO; +NYSTATIN1 PWD TP; +PULMICORT0.5 MG/21 INH; +SALINE NASAL SP45 ML NS; +SINGULAIR10 MG PO
== END | disposition home or self-care (01) ==
LOC: D.MAMMO 11:15
DX: Z12.31 Encounter for screening mammogram for malignant neoplasm of breast (principal)

== ENCOUNTER 2017-04-02 05:00 | Inpatient (IN) | payer MEDICARE ==
[2017-04-01 10:05] LABS: HEMATOCRIT 35.8 % (36.0-48.0); HEMOGLOBIN 12.1 g/dL (12-16); MCHC 33.8 g/dL (31.0-37.0); MCV 91.8 fL (80.0-100.0); MEAN PLATELET VOLUME 12.8 fL (7.4-10.4); RBC 3.9 10x6/uL (4.00-5.40); RDW 13.6 % (11.5-14.5); WBC 7.8 10x3/uL (4.8-10.8)
[2017-04-01 10:16] LABS: APTT 25.6 SECONDS (22.8-39.4); INR 0.99 (0.85-1.17); PROTIME 12.7 SECONDS (11.6-15.0)
[2017-04-01 10:22] LABS: ALBUMIN 3.7 g/dL (3.4-5.0); ANION GAP 14.9 mmol/L (8-16); BILIRUBIN - TOTAL 0.2 mg/dL (0.2-1.3); CALCIUM 9.8 mg/dL (8.5-10.1); CARBON DIOXIDE 26.4 mmol/L (21.0-32.0); CREATININE - SERUM 1.3 mg/dL (0.6-1.3); POTASSIUM - SERUM 4.3 mmol/L (3.5-5.1); PROTEIN - SERUM 7.4 g/dL (6.4-8.2)
[2017-04-01 10:31] LABS: APPEARANCE CLEAR (CLEAR); COLOR STRAW (YELLOW)
[2017-04-01 10:32] LABS: BACTERIA FEW /hpf (NONE SEEN); BILIRUBIN NEGATIVE (NEGATIVE); EPITHELIAL CELLS 0-5 /hpf (0-5); GLUCOSE NEGATIVE (NEGATIVE); HYALINE CAST 0-5 /lpf (NONE SEEN); KETONE NEGATIVE (NEGATIVE); NITRITE NEGATIVE (NEGATIVE); PROTEIN 2+ mg/dL (NEGATIVE); RED CELLS - URINE 0-5 /hpf (0-5); UROBILINOGEN NORMAL (NORMAL)
[2017-04-01 10:33] LABS: MUCUS <1+ /lpf (NONE SEEN)
[2017-04-02] VITALS (60 sets, daily range): BP systolic 105–214; BP diastolic 41–79; BMI 31.9; BMI 33.0
[~2017-04-02] VITALS: Ht 157.5 cm; Wt 81.5 kg
[~2017-04-02 05:00] MED LIST changes: -ACETAMINOPHEN325 MG PO; -AFRIN NASAL SPR15 ML NASAL; -ALBUTEROL2.5 MG/3 M INH; -BENZONATATE200 MG PO; -CALMOSEPTINE OI71 GM; -CATAPRES0.2 MG PO; -COMBIGAN OPHT DR5 ML LEFT EYE; -FLUTICASONE PRO16 GM NASAL; -GAS-X80 MG PO; -IPRAT-ALBUT 0.5-3 ML UPD; -MUCINEX600 MG PO; -NYSTATIN1 PWD TP; -PULMICORT0.5 MG/21 INH; -SALINE NASAL SP45 ML NS; -SINGULAIR10 MG PO
--- NOTE | 2017-04-02 10:32 | NUR ---
RECEIVED PT TO ROOM CV04 VIA BED. ICU MONITORS CONNECTED.
--- NOTE | 2017-04-02 10:40 | NUR ---
FAMILY AT BEDSIDE, UPDATED BY DR ESCAMILLA.
--- NOTE | 2017-04-02 11:00 | NUR ---
SPOKE WITH AIMEE IN PHARMACY REGARING NEED FOR HYTRIN 2MG TO BE STOCKED IN PYXIS.
--- NOTE | 2017-04-02 13:05 | NUR ---
PT'S FRIENDS AT BEDSIDE. PT SLEEPING, BUT AROUSES TO THE VOICES OF VISITORS. PT INDICATES SHE WOULD LIKE TO SLEEP AT THIS TIME. VSS. LEFT NECK INCISION WITHOUT SIGNS OF SWELLING OR BLEEDING, DSG CDI. LEFT UPPER CHEST FAINA DRAIN WNL, DSG CDI. ICE PACK IN PLACE ON LEFT NECK. CALL LIGHT WITHIN REACH.
--- NOTE | 2017-04-02 14:00 | NUR ---
NEURO CHECK COMPLETED, WNL. LCEA INCISION DSG CDI. LEFT UPPER CHEST DSG CDI, FAINA COMPRESSED, BLOODY DRAINAGE NOTED IN TUBING. PT REPOSITIONED FOR COMFORT. ICE PACK REFRESHED AND PLACED ON LEFT NECK. PT VOICES NO ADDITIONAL NEEDS AT THIS TIME. VSS. CALL LIGHT WITHIN REACH.
--- NOTE | 2017-04-02 16:15 | NUR ---
DINNER TRAY PROVIDED. PT POSITIONED FOR COMFORT. VSS.
--- NOTE | 2017-04-02 19:15 | NUR ---
REPORT RECEIVED AND CARE ASSUMED SHIFT ASSESSMENT PER FLOWSHEET. PT WITH LEFT NECK DRESSING ICE PACK REPLENISHED AND REAPPLIED. PT ASJUSTED FOR COMFORT TO SIDE WITH PILLOWS USED FOR SUPPORT AND TO RELIEVE PRESSURE. IVF AND LINES ARE ALL PROPERLY LABELED AND NONE DUE TO BE CHANGED AT THIS TIME. PT AWAKE AND ALERT NEURO STATUS INTACT. DENIES NEEDS AT THIS TIME. MONITORED PER STANDARD CVICU PROTOCOL WITH ALL ALARMS SET AND VERIFIED. CURRENTLY ON 14MG/HR OF CLEVIPREX TO TITRATE TO MAINTAIN SBP 90-140.
--- NOTE | 2017-04-02 20:00 | NUR ---
VISITORS AT BEDSIDE. PT VISITED FREELY UPDATED HER VISITORS. DENIES NEEDS.
--- NOTE | 2017-04-02 22:00 | NUR ---
HS MEDS GIVEN DOCUMENTED ON JUN. NO SWALLOWING DIFFICULTY NOTED. PT TEACHING DONE ON USE PRIOR TO ADMINISTRATION. PT VERBALIZED UNDERSTANDING. PT HAS BEEN DOZING OFF AND ON. TITRATING CLEVIPREX ORDERED
--- NOTE | 2017-04-02 23:00 | NUR ---
SHIFT REASSESSEMENT CONTINUED. NO SIGNIFICANT CHANGES. PT RESTING WELL. AT TIMES REQUIRES SOME ASSISTANCE WITH REPOSITIONING DUE TO CHRONIC DISCOMFORT OF ARTHRITIS. PT DOES ALSO REPOSITION SELF. LEFT NECK NO CHANGES DRESSING TO INCISION WNL
[2017-04-03] VITALS (52 sets, daily range): BP systolic 110–159; BP diastolic 46–97; BMI 32.8
--- NOTE | 2017-04-03 01:00 | NUR ---
PT SLEEPING WELL NO SIGNIFICANT CHANGES NEURO STATUS UNCHANGED
--- NOTE | 2017-04-03 03:00 | NUR ---
SHIFT REASSESSMENT COMPLETED SEE FLOWSHEET. F/C DONE AND NOTE A SMALL AMOUNT OF BROWN VAGINAL DISCHARGE. PT C/O VAGINAL ITCHING WHEN QUESTIONED. NO OTHER CHANGES
--- NOTE | 2017-04-03 04:00 | NUR ---
PT RESTING WELL AT THIS TIME RESP REG AND NONLABORED.
--- NOTE | 2017-04-03 05:00 | NUR ---
CHRISTOPHER ELENA HERE TO PULL FAINA DRAIN. PULLED WITHOUT DIFFICULTY. GAUZE DRESSING APPLIED AND COVERED WITH TEGADERM. PT TOLERATED WITHOUT DIFFICULTY
--- NOTE | 2017-04-03 07:15 | NUR ---
SHIFT ASSESSMENT VIA FLOWSHEET, SEE FOR DETAILS.
--- NOTE | 2017-04-03 09:30 | NUR ---
LEFT RADIAL ART LINE D/C'D PER ORDER WITH CATH TIP INTACT. ULRICH CATHETER ALSO D/C'D AT THIS TIME.
--- NOTE | 2017-04-03 11:00 | NUR ---
REASSESSMENT VIA FLOWSHEET, SEE FOR DETAILS.
--- NOTE | 2017-04-03 11:15 | NUR ---
PT AMBULATED WITH PHYSICAL THERAPY AND USED WALKER FOR ASSISTANCE. RETURNED TO CHAIR AT BEDSIDE. VSS. CALL LIGHT WITHIN REACH.
--- NOTE | 2017-04-03 12:50 | NUR ---
* Is the patient Alert and Oriented? Yes 0 * How many steps to enter\exit or inside your home? 2 0 * PCP Dr. Baker 0 * Pharmacy [facility] on [address] 0 * Preadmission Environment Home with Family 0 * ADLs Independent 0 * List name and contact numbers for known caregivers / representatives who currently or will assist patient after discharge: Spouse - Antonio [phone] 0 * Additional services required to return to the preadmission environment? No 0 * Can the patient safely return to the preadmission environment? Yes 0 * Has this patient been hospitalized within the prior 30 days at any hospital? No Patient Name: ADRIA KHALIL Admission Status: Elective Accout number: [id number] Admission Date: 04-02-2017 : 1945 Admission Diagnosis: Attending: SAGAR ESCAMILLA Current LOS: 1 Anticipated DC Date: 04-04-2017 Planned Disposition: Home Primary Insurance: [facility] Discharge Planning Comments: CM met with patient to assess dc plans/needs. Patient states she lives at home with her , Antonio. She reports she is independent with all ADL's & IADL's. She does not use any home DME or had home health services in the past. At dc, she will return home with her . No needs identified or verbalized at this time. CM will follow & assist as needed. Metal Engraver: Tiff Kent
--- NOTE | 2017-04-03 13:15 | NUR ---
PT SLEEPING IN CHAIR AT BEDSIDE. VSS.
--- NOTE | 2017-04-03 15:00 | NUR ---
REASSESSMENT VIA FLOWSHEET, SEE FOR DETAILS.
[2017-04-03 15:50] LABS: HEMATOCRIT 28.2 % (36.0-48.0); HEMOGLOBIN 9.6 g/dL (12-16); MCH 31.6 pg (26.0-34.0); MCV 92.8 fL (80.0-100.0); MEAN PLATELET VOLUME 12.8 fL (7.4-10.4); RBC 3.04 10x6/uL (4.00-5.40); RDW 13.4 % (11.5-14.5); WBC 10.3 10x3/uL (4.8-10.8)
--- NOTE | 2017-04-03 16:00 | NUR ---
PT AMBULATED WITH PHYSICAL THERAPY. RETURNED TO CHAIR AT BEDSIDE. IN ROOM, UPDATE PROVIDED.
[2017-04-03 16:32] LABS: ALBUMIN 2.9 g/dL (3.4-5.0); ANION GAP 17.7 mmol/L (8-16); BILIRUBIN - TOTAL 0.12 mg/dL (0.2-1.3); CALCIUM 7.1 mg/dL (8.5-10.1); CARBON DIOXIDE 21.8 mmol/L (21.0-32.0); CREATININE - SERUM 2.6 mg/dL (0.6-1.3); POTASSIUM - SERUM 5.5 mmol/L (3.5-5.1); PROTEIN - SERUM 5.7 g/dL (6.4-8.2); URIC ACID 9.4 mg/dL (2.6-7.2)
--- NOTE | 2017-04-03 16:55 | NUR ---
SPOKE WITH DR CROFT VIA PHONE, NEW ORDERS RECEIVED.
--- NOTE | 2017-04-03 19:00 | NUR ---
ASSESSMENT COMPLETE PER FLOWSHEET, SEE FOR COMPLETE RESULTS. NSR ON MONITOR. RR EVEN, SHALLOW. WEAKNESS/SWELLING IN EXTREMITIES. AMBULATED TO BATHROOM VIA WALKER. UP IN CHAIR, ON ROOM AIR AT THIS TIME WITH 02 SAT 92%. INCISION TO UPPER LEFT CHEST AND NECK, DRESSINGS C/D/I. L SUBCLAVIAN CL SALINE LOCKED, DRESSING C/D/I. DENIES NEED, WILL MONITOR.
--- NOTE | 2017-04-03 20:00 | NUR ---
PHARMACY CALLED FOR PATIENT'S INSULIN. STATED IT WAS ON THE CART AND ON IT'S WAY.
--- NOTE | 2017-04-03 21:15 | NUR ---
LAB SPECIMEN DRAWN AND SENT TO LAB.
--- NOTE | 2017-04-03 21:30 | NUR ---
RECEIVED LANTUS PEN, CALLED FOR HUMILIN.
[2017-04-03 21:42] LABS: ANION GAP 16.4 mmol/L (8-16); CALCIUM 7.5 mg/dL (8.5-10.1); CREATININE - SERUM 2.5 mg/dL (0.6-1.3)
[2017-04-03 21:47] LABS: POTASSIUM - SERUM 4.4 mmol/L (3.5-5.1)
--- NOTE | 2017-04-03 21:50 | NUR ---
PATIENT ASSISSTED FROM CHAIR TO BED. TOLERATED WELL.
--- NOTE | 2017-04-03 23:00 | NUR ---
REASSESSMENT COMPLETE PER FLOWSHEET, NO ACUTE CHANGES. DENIES COMPLAINT.
[2017-04-04] VITALS (39 sets, daily range): BP systolic 119–171; BP diastolic 34–77; Ht 157.5 cm; Wt 81.5 kg
--- NOTE | 2017-04-04 | NUR ---
REQUESTS TO GET BACK IN CHAIR. STATES BED IS UNCOMFORTABLE TO HER. TO BATHROOM THEN CHAIR VIA WALKER. TOLERATED WELL. NSR ON MONITOR.
--- NOTE | 2017-04-04 01:00 | NUR ---
UNABLE TO GET AUTOMATIC BLOOD PRESSURE CUFF TO WORK MOST OF THE TIME. ATTEMPTED NEW CUFF, ASSURING ALL CONNECTIONS TIGHT. WILL TAKE MANUAL CUFF PRESSURES.
--- NOTE | 2017-04-04 02:00 | NUR ---
CLONIDINE GIVEN EARLY FOR ELEVATED BLOOD PRESSURE.
--- NOTE | 2017-04-04 03:00 | NUR ---
DR ESCAMILLA CALLED FOR ELEVATED BLOOD PRESSURE. ORDERS TO RESTART CLEVIPREX.
--- NOTE | 2017-04-04 09:12 | NUR ---
Met with daughter, Angie, yesterday afternoon @ 9939. ABN for [facility] signed and faxed back to [facility]. Spoke with Magnus with [facility] this morning. He states he rec'd ABN. He states transport team will pick patient up at 1000. Patient will transport to a SNF bed at [facility] via fixed wing aircraft. Nursing to call report to [phone]. DC Med Rec & instructions faxed to [facility] @ [place].
--- NOTE | 2017-04-04 09:58 | NUR ---
Nutrition Follow Up: Pt is eating 100% meal avg on a diabetic diet. Labs reviewed - Glucose elevated. Meds noted. Rec continue current diet. RD following.
[2017-04-04 15:37] LABS: ANION GAP 13.7 mmol/L (8-16); CALCIUM 7.3 mg/dL (8.5-10.1); CARBON DIOXIDE 23.1 mmol/L (21.0-32.0); CREATININE - SERUM 2.3 mg/dL (0.6-1.3); POTASSIUM - SERUM 3.8 mmol/L (3.5-5.1)
--- NOTE | 2017-04-04 19:10 | NUR ---
SHIFT ASSESSMENT COMPLETE, PATIENT A&O X4, UP IN CHAIR WITH EYES CLOSED, OPENS WHEN SPOKEN TO. STATES SHE'S FEELING WELL. SINUS BRADYCARDIA ON MONITOR WITH RATE OF 58. RR EVEN AND NONLABORED, SHALLOW, ON ROOM AIR WITH O2 SAT OF 93%. DROPS WHEN SLEEPING. WILL MONTIOR. BOWEL SOUNDS ACVTIVE X4. DENIES PROBLEMS VOIDING. PERIPHERAL PULSES +2. MISTI'S AND SCD'S ON. INCISION AND BRUISES ON LEFT SIDE OF NECK AND UPPER LEFT CHEST. R SUBCLAVIAN CL SALINE LOCKED. DRESSING C/D/I. DENIES NEED, CL IN REACH.
--- NOTE | 2017-04-04 21:00 | NUR ---
NIGHT MEDS GIVEN, DENIES FURTHER NEED.
--- NOTE | 2017-04-04 23:10 | NUR ---
REASSESSMENT COMPLETE, NO CHANGE. DENIES NEED, VSS. WILL MONITOR.
[2017-04-05] VITALS (24 sets, daily range): BP systolic 109–159; BP diastolic 33–84
--- NOTE | 2017-04-05 01:00 | NUR ---
RESTING WITH EYES CLOSED. VSS.
--- NOTE | 2017-04-05 03:10 | NUR ---
REASSESSMENT COMPLETE PER FLOWSHEET. SEE FOR DETAILS. VSS, WILL MONITOR.
--- NOTE | 2017-04-05 04:00 | NUR ---
UP TO RESTROOM, STEADY WITH WALKER. BACK TO CHAIR, TOLERATED WELL.
[2017-04-05 06:39] LABS: BASOPHILS 0.2 % (0-2); EOSINOPHILS 3.8 % (0-7); HEMATOCRIT 25.4 % (36.0-48.0); HEMOGLOBIN 8.4 g/dL (12-16); IMMATURE GRANULOCYTES 0.6 % (0-5); LYMPHOCYTES 19.8 % (15-50); MCH 30.4 pg (26.0-34.0); MCHC 33.1 g/dL (31.0-37.0); MEAN PLATELET VOLUME 12.5 fL (7.4-10.4); MONOCYTES 11.9 % (2-11); NEUTROPHILS 63.7 % (40-80); RBC 2.76 10x6/uL (4.00-5.40); RDW 13.8 % (11.5-14.5); WBC 8.7 10x3/uL (4.8-10.8)
[2017-04-05 06:40] LABS: PLATELET COUNT 141 10x3/uL (130-400)
[2017-04-05 06:45] LABS: ANION GAP 14.1 mmol/L (8-16); CALCIUM 7.4 mg/dL (8.5-10.1); CARBON DIOXIDE 23.4 mmol/L (21.0-32.0); CREATININE - SERUM 2.1 mg/dL (0.6-1.3); POTASSIUM - SERUM 3.5 mmol/L (3.5-5.1)
--- NOTE | 2017-04-05 19:00 | NUR ---
SHIFT ASSESSMENT COMPLETE, PATIENT SITTING UP IN CHAIR WITH EYES CLOSED. A&OX4, DENIES NEED/PAIN. NSR ON MONITOR WITH RATE OF 57. S1S2. PERIPHERAL PULSES +2. RR EVEN AND NONLABORED. LUNG SOUNDS CLEAR. ON ROOM AIR WITH 02 SAT 98%. BOWEL SOUNDS ACTIVE X4. SCD'S AND MISTI'S ON. EDEMA IN EXTREMTIES, MAINLY HANDS. RIGHT SUBCLAVIAN CL IS SALINE LOCKED. DRESSING C/D/I. BRUISING ON LEFT SIDE OF NECK AND UPPER CHEST FROM INCISIONS. HEALING WELL. VSS, WILL MONITOR.
--- NOTE | 2017-04-05 21:00 | NUR ---
NIGHT MEDS GIVEN. UP TO BATHROOM VIA WALKER. TOLERATED WELL.
[2017-04-06] VITALS (24 sets, daily range): BP systolic 131–160; BP diastolic 46–71
--- NOTE | 2017-04-06 00:45 | NUR ---
PATIENT COULD BE HEARD YELLING "HELP" FROM THE ROOM. UPON ENTERING SHE WAS PALE AND DIAPHORETIC, STATES THAT SHE WAS DIZZY. HEART RATE WAS 52 AT THE TIME, BUT SOON DROPPED LOW 41. BLOOD SUGAR WAS 121. O2 SAT READ 96%, PLACED ON 2L OXYGEN FOR SUPPORT. BLOOD PRESSURE 149/71. PATIENT REMAINED ALERT AND ORIENTED AND CONTINUED TO TALK. HAD BRIEF MOMENT OF NAUSEA. HEART RATE INCREASED AND PATIENT FEELING BETTER NOW. STATES THE NEED TO VOID, BEDSIDE COMMODE BROUGHT NEXT TO CHAIR AFTER PATIENT FEELING OKAY TO STAND. TRANSFERRED TO COMMODE WITHOUT DIZZINESS. VSS NOW. WILL MONITOR CLOSELY.
--- NOTE | 2017-04-06 02:20 | NUR ---
PATIENT HAD ANOTHER EPISODE OF DIZZINESS AND NAUSEA. PATIENT VOMITED ABOUT 300CC OF GREEN BILE. ZOFRAN GIVEN. HEART RATE DROPPED TO 41, REMAINED SINUS. QUICKLY CAME BACK UP. B/P 136/46. PATIENT STATES SHE FEELS BETTER NOW. LABS DRAWN EARLY AND SENT TO LAB. WILL MONITOR CLOSELY.
[2017-04-06 02:26] LABS: BASOPHILS 0.2 % (0-2); EOSINOPHILS 4.1 % (0-7); HEMATOCRIT 27.5 % (36.0-48.0); HEMOGLOBIN 9.3 g/dL (12-16); IMMATURE GRANULOCYTES 0.3 % (0-5); LYMPHOCYTES 14.2 % (15-50); MCH 30.9 pg (26.0-34.0); MCHC 33.8 g/dL (31.0-37.0); MCV 91.4 fL (80.0-100.0); MEAN PLATELET VOLUME 13.1 fL (7.4-10.4); MONOCYTES 11.5 % (2-11); NEUTROPHILS 69.7 % (40-80); PLATELET COUNT 161 10x3/uL (130-400); RBC 3.01 10x6/uL (4.00-5.40); RDW 13.5 % (11.5-14.5); WBC 9.7 10x3/uL (4.8-10.8)
[2017-04-06 02:38] LABS: ANION GAP 16.2 mmol/L (8-16); CALCIUM 7.9 mg/dL (8.5-10.1); CARBON DIOXIDE 21.2 mmol/L (21.0-32.0); CREATININE - SERUM 1.8 mg/dL (0.6-1.3); POTASSIUM - SERUM 3.4 mmol/L (3.5-5.1)
--- NOTE | 2017-04-06 03:35 | NUR ---
PATIENT STATES SHES FEELING WELL, DENIES COMPLAINT. DENIES DIFFICULTY SWALLOWING. INCISION AND SURROUNDING AREA WNL. HR AND BP STABLE. WILL CONTINUE TO CLOSELY MONITOR.
--- NOTE | 2017-04-06 05:15 | NUR ---
NO COMPLAINTS, VSS. STATES SHE IS FEELING GOOD. WILL MONITOR.
--- NOTE | 2017-04-06 12:48 | HP ---
PATIENT: ADRIA KHALIL [facility] MEDICAL RECORD: [id number] ACCOUNT: [id number] LOCATION:[place] [address] : 47 ADMISSION DATE: 04/02/17 HISTORY AND PHYSICAL EXAMINATION ADRIA Spencer (72yo, F) ID# [id number]. Date/Time03/21/2017 10:16CNEFF1946Service Dept.NPP[facility] ClinicProviderEDMARY ESCAMILLA MDInsuranceMed Primary: [employer] (POS) Insurance # : [id number] Policy/Group # : [id number] Employer Name : UNKNOWN Prescription: ORX - Member is eligible. Chief Complaint Followup: Carotid artery stenosis S/P RCEA 07/12/16 FOLLOWING LICA STENOSIS, PREOP FOR LCEA Patient's Pharmacies [facility] (ERX): [address] , [place] [address], , Vitals BP:144/68 sitting L arm 03/21/2017 11:44 amBP Cuff Size:adult 03/21/2017 11:44 amHR:60,reg 03/21/2017 11:44 amHt:5 ft 2 in 03/21/2017 11:41 amWt:172 lbs 03/21/2017 11:44 amNotes:here to sched preop lcea 03/21/2017 11:45 amBMI:31.5 03/21/2017 11:44 amAllergies Reviewed Allergies NKDAMedications Reviewed Medications Accu-Chek FastClix TEST TID01/07/17 filledPRESCRIPTION SOLUTIONSAccu-Chek SmartView Test Strips TEST TID UT12/04/16 filledPRESCRIPTION SOLUTIONSamLODIPine 5 mg tablet one tablet by mouth daily03/17/17 filledPRESCRIPTION SOLUTIONSatorvastatin 80 mg tablet TK 1 T PO Q NIGHT02/28/17 filledPRESCRIPTION SOLUTIONScloNIDine HCl 0.1 mg tablet TAKE 1 TABLET BY MOUTH THREE TIMES A DAY03/01/17 filledsurescriptsclopidogrel 75 mg tablet TAKE 1 TABLET BY MOUTH EVERY DAY03/01/17 filledPRESCRIPTION SOLUTIONSCombigan 0.2 %-0.5 % eye drops02/12/17 filledPRESCRIPTION SOLUTIONSdiclofenac 1 % topical gel NORRIS 2 GRAMS EXT AA QID07/22/16 filledsurescriptsfamotidine 20 mg tablet TK 1 T PO HS03/17/17 filledPRESCRIPTION SOLUTIONSFluad 2015- 65yr up(PF)45 mcg(15 mcgx3)/0.5 mL intramuscular syringe ADM 0.5ML IM UTD105/19/15 filledPRESCRIPTION SOLUTIONSfluticasone 50 mcg/actuation nasal spray,vwlszgoqcq09/07/17 filledPRESCRIPTION SOLUTIONSFluzone High-Dose [id number] (PF) 180 mcg/0.5 mL intramuscular syringe ADM 0.5ML IM UTD1 filledPRESCRIPTION SOLUTIONSfurosemide 20 mg tablet TK 2 TS PO D105/11/16 filledPRESCRIPTION SOLUTIONSgemfibrozil 600 mg tablet TK 1 T PO BID03/01/17 filledsurescriptsHumaLOG 100 unit/mL subcutaneous oqugxsiw01/11/17 filledPRESCRIPTION SOLUTIONSINSULIN SYRG MIS 1ML/30G005/20/16 filledPRESCRIPTION SOLUTIONSINSULIN SYRG MIS 1ML/31G104/27/16 filledPRESCRIPTION SOLUTIONSinsulin syringe-needle U-100 1 mL 30 gauge x 7/16" U WITH INSULIN PRN UP TO QID05/21/16 filledsurescriptsinsulin syringe-needle U-100 1 mL 31 gauge x 5/16" USE WITH INSULIN NEEDED UP TO FOUR TIMES D104/27/16 filledsurescriptsLantus 100 unit/mL subcutaneous solution USE 20 UNITS QAM AND 50 UNITS QPM02/21/17 filledPRESCRIPTION SOLUTIONSlisinopril 10 mg tablet HISTORY AND PHYSICAL [id number] ADRIA KHALIL TK 1 T PO D105/11/16 filledPRESCRIPTION SOLUTIONSmeloxicam 7.5 mg tablet TK 1 T PO D104/29/16 filledPRESCRIPTION SOLUTIONSmetFORMIN 1,000 mg tablet TK 1 T PO D105/10/16 filledsurescriptsprednisoLONE acetate 1 % eye drops,pnmaokvrpz18/26/16 filledPRESCRIPTION SOLUTIONSSimbrinza 1 %-0.2 % eye drops,inlvfnrpru47/29/17 filledPRESCRIPTION SOLUTIONSSlow Release Iron 159 mg (45 mg iron) tablet,extended release Take by oral route.08/01/16 enteredKathy Wilsonterazosin 2 mg capsule TK 1 C PO BID02/17/17 filledPRESCRIPTION SOLUTIONSTravatan Z 0.004 % eye drops01/11/16 filledPRESCRIPTION SOLUTIONSverapamil ER (SR) 240 mg tablet,extended release TK 1 T PO D008/14/16 filledPRESCRIPTION SOLUTIONSVaccines Reviewed Vaccines Some vaccines listed in Document: #[id number] could not be added to this patient's chart. Please review this document and add these vaccines to the patient's chart manually as needed. Problems Reviewed Problems Carotid artery stenosis - Onset: 12/19/2016, Left Renal impairment - baseline Cr 1.7 Hyperlipidemia Essential hypertension Carotid artery stenosis, Right Diabetes mellitus Family History Discussed Family History Mother- Cerebrovascular accidentSocial History Discussed Social History Cardiology Smoking Status: Never smoker High Cholesterol: Y High blood pressure: Y Overweight: Y Obese: Y Alcohol intake: None Surgical History Reviewed Surgical History Other - cataract Other - hysterectomy Other - tonsilectomy Carotid Endarterectomy - 07/12/2016 - Right 07/09/16 no PA required for 07/12/16 sx per Delicia Jin @ [facility]. 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 HPI Cerebral Vascular Disease Reported by patient. Quality: weakness Severity: mild loss of strength Duration: has noted for months Associated Symptoms: no headache; no nausea; no vomiting; no tinnitus; no difficulty speaking; no lethargy; no fever; no chills; no palpitations; no syncope; no loss of consciousness severe left internal carotid artery stenosis ROS Patient reports vision change (OD) but reports no dry eyes and no irritation; intraocular injections Recent cataracts. She reports no jugular vein distension and no swollen glands; carotid bruit right. She reports shortness of breath when walking but reports no chest pain, no arm pain on exertion, no shortness of breath when lying down, no palpitations, and no known heart murmur. She reports muscle aches and muscle weakness but reports no arthralgias/joint pain, no back pain, and no swelling in the extremities. She reports numbness (lower extremities bilaterally) but reports no loss of consciousness, no weakness, no seizures, no dizziness, and no headaches. She reports no fever, no ni ght sweats, no significant weight gain, no significant weight loss, and no exercise intolerance. She reports no difficulty hearing and no ear pain. She reports no frequent nosebleeds and no nose/sinus problems. She reports no sore throat, no bleeding gums , no snoring, no dry mouth, no mouth ulcers, no oral abnormalities, and no teeth problems. She reports no cough, no wheezing, no shortness of breath, and no coughing up blood. She reports no abdominal pain, no vomiting, normal appetite, no diarrhea, not vo m iting blood, no nausea, and no constipation. She reports no incontinence, no difficulty urinating, no hematuria, and no increased frequency. She reports no abnormal mole, no jaundice, and no rashes. She reports no depression, no sleep disturbances, feelin g safe in relationship, and no alcohol abuse. She reports no fatigue. She reports no swollen glands and no bruising. She reports no runny nose, no sinus pressure, no itching, no hives, and no frequent sneezing. ROS as noted in the HPI Physical Exam Patient is a 72-year-old female. Constitutional: General Appearance healthy-appearing, well developed, and overweight. Level of Distress NAD. Ambulation ambulation with walker. Cardiovascular: Apical Impulse not displaced or no thrill. Heart Auscultation normal s1 and s2, no rubs or gallops, and RRR and murmur (systolic ejection murmur). Arterial Pulses no abdominal aorta bruits, femoral bruits, or popliteal bruits and 2+ bilateral, carotid 2+ bilateral, femoral 2+ bilateral, popliteal 2+ bilateral, and dorsalis pedis 2+ bilateral. Edema no edema or varicosities. HISTORY AND PHYSICAL [id number] SIMRAN,ADRIA AMARIS Lungs: Repiratory Effort no dyspnea. Percussion no hyperresonance or dullness or flatness. Auscultation no wheezing, rhonchi, or rales / crackles and breathing sounds normal, good air movement, and CTA except as noted. Abdomen: Bowl Sounds normal. Inspection and Palpation no tenderness, guarding, masses, or rebound tenderness and soft and non-distended. Liver non-tender and no hepatomegaly. Spleen non-tender and no splenomegaly. Hernia none palpable. Musculoskeletal System: Gait And Stance wide-based and irregular gait and stance. Digits and Nails normal nails and no cyanosis. Neurologic: Cranial Nerves grossly intact. Reflexes DTRs 2+ bilaterally throughout. Sensation grossly intact. Lymph Nodes: Lymph Nodes no cervical LAD, supraclavicular LAD, axillary LAD, or inguinal LAD. Eyes: Lids and Conjunctivae no discharge or pallor and non-injected. Pupils PERRLA. Cornea grossly intact. EOM EOMI. Lens clear. Sclera non-icteric. Neck: Neck no masses or enlarged lymph nodes and supple, trachea midline, and carotid bruits (bilateral). Thyroid no enlargement or nodules and non-tender. Skin: Inspection and Palpation no rash, lesions, ulcers, jaundice, or abnormal nevi. Assessment / Plan left internal carotid artery stenosis 1. Carotid artery stenosis - Left I65.23: Occlusion and stenosis of bilateral carotid arteries CAROTID STENOSIS: CARE INSTRUCTIONS Discussion Notes severe left internal carotid artery stenosis. Discussed her disease pr ocess with her in detail as well as the alternative methods of treatment. We discussed left carotid endarterectomy including the expected benefits and risk which include bleeding, infection, stroke, , and the imponderables. She understands all the above and wished proceed with planned surgery She had gout in the past and discussed with Dr. Baker we plan steroids surgery she has chronic renal failure which we will also have to careful with postoperative in her fluid management SAGAR ESCAMILLA MD at 1248 CC: [id number] DICTATION DATE: 03/21/17 1045 VICE PROVOST: ROSMERY 04/02/17 0827 ADM IN [facility] [address] [place] [address]
--- NOTE | 2017-04-06 12:48 | OP ---
PATIENT NAME: ADRIA KHALIL MEDICAL RECORD: [id number] :47 LOCATION:[facility].CV04 ADMISSION DATE:04/02/17 SURGEON: BERTRAND ESCAMILLA MD DATE OF OPERATION: 04/02/2017 SURGEON: Bertrand Escamilla MD ANESTHESIA: General endotracheal, Dr. Rodriguez. OPERATION PERFORMED: Left carotid endarterectomy with patch angioplasty. PREOPERATIVE DIAGNOSIS: Severe left internal carotid artery stenosis. POSTOPERATIVE DIAGNOSIS: Severe left internal carotid artery stenosis. INDICATION FOR OPERATION: Severe left internal carotid artery stenosis. FINDINGS AT OPERATION: Severe left internal carotid artery stenosis, distal portion of the internal carotid artery. ESTIMATED BLOOD LOSS: Less than 100 mL. DESCRIPTION OF PROCEDURE: After informed consent, adequate preoperative medication evaluation, the patient was brought to the operating room, placed on the table in the supine position. After induction of general endotracheal anesthesia and application of appropriate monitoring devices, the left neck and chest were prepped and draped in a sterile field, utilizing Betadine scrub, alcohol, and Betadine solution. A Betadine-impregnated drape was also used. An oblique incision was made in the skin crease. Dissection carried down to the fascia. Hemostasis maintained with electrocautery. Facial vein was identified and divided. Utilizing sharp dissection, the common carotid, internal and external carotid arteries were dissected free from surrounding structures, protecting the neurological structures. The patient was given a calculated dose of heparin, after 3 minutes, clamps were applied. After 2 minutes, no EEG changes. An arteriotomy was made and extended with Hill scissors. Artery underwent endarterectomy sharply. Artery underwent extensive debridement and irrigation. Utilizing a CorMatrix vascular patch and running 7-0 Prolene suture, the arteriotomy was closed with patch angioplasty technique. All maneuvers to remove trapped air were performed. The clamps were removed sequentially. There were no EEG changes. The patient was given a calculated dose of protamine to reverse the heparin. Hemostasis was achieved, and a #7 Elliot-Daly drain was left in the depths of the wound brought out through the base of the neck. Neck was again irrigated. Instrument count and sponge count were correct times 2. Neck was closed in layers utilizing 3-0 Vicryl on the platysma, 5-0 subcuticular Monocryl on the skin. Sterile dressings were applied. The patient tolerated the procedure well and transferred to the CV ICU in satisfactory condition. TRANSINT:[id number] Voice Confirmation ID: [id number] DOCUMENT ID: [id number] OPERATIVE REPORT [id number] ADRIA KHALIL EDWARD MD at 1248 CC: [id number] DICTATION DATE: 04/02/17 1023 THREADER: 04/02/17 1452 ADM IN [place] [id number] [place] [address]
--- NOTE | 2017-04-06 19:00 | NUR ---
REPORT RECEIVED AND ASSESSMENT COMPLETED. SEE FLOWSHEET FOR FULL DETAILS. VSS. PT IS POST OP CAROTID BY DR ESCAMILLA. AT THIS TIME THERE IS MARKED BRUISING ALONG NECK , AND ON PARTS OF CHEST. THIS HAS BEEN NOTED PREVIOUSLY, AND PHYSICIANS ARE AWARE. PT HAS NO SIGNS OF SWELLING OR DISCOMFORT. WILL MONITOR CLOSELY THROUGHOUT SHIFT
--- NOTE | 2017-04-06 21:00 | NUR ---
2100 MEDS GIVEN. PT ASSISTED TO RESTROOM 400 ML OUT
--- NOTE | 2017-04-06 23:00 | NUR ---
REASSESSMENT COMPLETED. SEE FLOWSHEET FOR FULL DETAILS. VSS. WILL CONTINUE TO MONITOR.
[2017-04-07] VITALS (11 sets, daily range): BP systolic 113–159; BP diastolic 49–78
--- NOTE | 2017-04-07 01:00 | NUR ---
NO CHANGES IN STATUS AT THIS TIME. VSS. WILL CONTINUE TO MONITOR
--- NOTE | 2017-04-07 03:00 | NUR ---
REASSESSMENT COMPLETED. SEE FLOWSHEET. NO OTHER CHANGES IN STATUS. WILL CONTINUE TO MONITOR
--- NOTE | 2017-04-07 05:00 | NUR ---
NO CHANGES IN STATUS AT THIS TIME. VSS. WILL CONTINUE TO MONITOR
[2017-04-07 06:36] LABS: BASOPHILS 0.3 % (0-2); EOSINOPHILS 4.5 % (0-7); HEMATOCRIT 25.7 % (36.0-48.0); HEMOGLOBIN 8.7 g/dL (12-16); IMMATURE GRANULOCYTES 0.2 % (0-5); LYMPHOCYTES 18.2 % (15-50); MCHC 33.9 g/dL (31.0-37.0); MCV 91.5 fL (80.0-100.0); MONOCYTES 12.6 % (2-11); NEUTROPHILS 64.2 % (40-80); PLATELET COUNT 161 10x3/uL (130-400); RBC 2.81 10x6/uL (4.00-5.40); RDW 13.6 % (11.5-14.5)
[2017-04-07 06:38] LABS: WBC 6.7 10x3/uL (4.8-10.8)
[2017-04-07 06:49] LABS: ANION GAP 13.4 mmol/L (8-16); CARBON DIOXIDE 23.5 mmol/L (21.0-32.0); CREATININE - SERUM 1.8 mg/dL (0.6-1.3); POTASSIUM - SERUM 3.9 mmol/L (3.5-5.1)
--- NOTE | 2017-04-07 07:45 | NUR ---
REPORT RECEIVED. ASSUMED CARE OF PATIENT. PT UP IN CHAIR AT BEDSIDE. BREAKFAST TRAY PROVIDED. DENIES ANY OTHER NEEDS AT THIS TIME. CALL LIGHT IN REACH.
--- NOTE | 2017-04-07 09:09 | NUR ---
PT UP WALKING WITH PHYSICAL THERAPY.
--- NOTE | 2017-04-07 09:14 | NUR ---
SPOKE WITH DR BILLINGSLEY. OK WITH PATIENT TO GO HOME TODAY. ASKS THAT ACEI BE HELD.
--- NOTE | 2017-04-07 09:17 | NUR ---
SPOKE WITH DR CROFT. REVIEWED LABS, SPECIFICALLY BUN AND CREATININE. WOULD LIKE TO SEE HER IN THE OFFICE ON FRIDAY IF SHE DISCHARGES HOME TODAY. LET HIM KNOW DR BILLINGSLEY ASKED FOR ACEI TO BE HELD. REVIEWED BP READINGS. SBP 159 CURRENTLY. WILL BE GIVING HER CLONIDINE THAT IS DUE.
--- NOTE | 2017-04-07 11:29 | NUR ---
CALLED TO MAKE FOLLOW UP APPOINTMENT FOR FRIDAY WITH DR CROFT. VOICE MAIL LEFT INDICATING NEED.
[2017-04-07] MEDS ORDERED: CATAPRES0.2 MG PO (11:34)
--- NOTE | 2017-04-07 11:49 | NUR ---
JULI SPIVEY HAS BEEN BY TO DISCUSS DISCHARGE WITH PATIENT. FOLLOW UP APPOINTMENT CARD AND INFO PROVIDED TO PATIENT.
--- NOTE | 2017-04-07 13:24 | NUR ---
DISCHARGE TEACHING PROVIDED. FOLLOW UP APPOINTMENTS REVIEWED. CVL TO RIGHT SUBCLAVIAN REMOVED, TIP INTACT, NO BLEEDING. SITE COVERED WITH TEGADERM. INSTRUCTED PT TO LEAVE ON UNTIL TOMORROW. MAY SHOWER. INSRUCTIONS PLACED IN YELLOW ENVELOPE. AT BEDSIDE.
--- NOTE | 2017-04-07 13:52 | NUR ---
PT ASSISTED TO DRESS. BELONGINGS REMOVED BY . PT ESCORTED TO CAR VIA WHEELCHAIR.
== END 2017-04-07 13:53 | disposition home or self-care (01) | DRG 38 ==
LOC: D.SDCHOLD 05:00 → D.CVICU 05:00 → D.SDCHOLD 07:30 → D.CVICU 10:15
PROVIDERS: Family Medicine; Internal Medicine Nephrology; ADMIT Internal Medicine Cardiovascular Disease
PROC: 03UL0JZ Supplement Left Internal Carotid Artery with Synthetic Substitute, Open Approach (ICD-10-PCS; 2017-04-02)
PROC: 03CL0ZZ Extirpation of Matter from Left Internal Carotid Artery, Open Approach (ICD-10-PCS; principal; 2017-04-02 07:30)
DX: I65.23 Occlusion and stenosis of bilateral carotid arteries (principal); N17.9 Acute kidney failure, unspecified; N18.4 Chronic kidney disease, stage 4 (severe); I10 Essential (primary) hypertension; E78.5 Hyperlipidemia, unspecified; M19.90 Unspecified osteoarthritis, unspecified site; E11.22 Type 2 diabetes mellitus with diabetic chronic kidney disease; E11.65 Type 2 diabetes mellitus with hyperglycemia; I12.9 Hypertensive chronic kidney disease with stage 1 through stage 4 chronic kidney disease, or unspecified chronic kidney disease; E87.5 Hyperkalemia; R80.9 Proteinuria, unspecified; D64.9 Anemia, unspecified; K21.9 Gastro-esophageal reflux disease without esophagitis; Z79.4 Long term (current) use of insulin

== ENCOUNTER 2017-04-21 09:51 | Inpatient (IN) | payer MEDICARE ==
[~2017-04-21] VITALS: Ht 157.5 cm; Wt 85.0 kg
--- NOTE | ~2017-04-21 | EC ---
PATIENT:ADRIA KHALIL DATE OF SERVICE: 04/21/17 SEX: F MEDICAL RECORD: [id number] DATE OF : 47 LOCATION:D.M2 D.213 AGE OF PATIENT: 72 ADMISSION DATE: 04/21/17 REFERRING PHYSICIAN: INTERPRETING PHYSICIAN: SAJI MARIE MD ECHOCARDIOGRAM REPORT ECHO CHARGES 4 ECHO COMPLETE CLINICAL DIAGNOSIS: PULMONARY EDEMA/HTN ECHOCARDIOGRAPHIC MEASUREMENTS (adult normal given) AC root (d.<3.7cm) 3.5 cm LV Septum d (<1.2 cm> 1.2 cm Valve Excursion 2.0 cm LV Septum (systole) 1.4 cm Left Atria (s.<4.0cm> 3.3 cm LVPW d(<1.2cm) 1.1 cm RV (d.<2.3cm) 3.9 cm LVPW (sytole) 1.6 cm LV diastole(<5.6CM) 5.0 cm MV E-F(>70mm/sec) cm LV systole 3.1 cm LVOT Diameter 1.4 cm MV exc.(>10mm) 1.8 cm Est.ejection fraction (50-75%) % Pericardial Effusion N DOPPLER: LVIT cm/sec A 142 cm/sec E 113 cm/sec LA cm/sec RVSP 28 mmHg LVOT 114 cm/sec AOP1/2T m/s Asc. Ao 156 cm/sec RVOT 94 cm/sec RA cm/sec PA 136 cm/sec AV Gradient Peak 9.73 mmHg AV Mean 5.29 mmHg AV Area 1.1 cm MV Gradient Peak 11.34mmHg MV Mean 4.02 mmHg MV Area cm COMMENTS: Band Saw Filer: 2 ACR PIERSON Cleat Thrower: 4 Dr. Marie TAPE# PACS DATE OF SERVICE: 04/22/2017 PROCEDURE: Transthoracic echocardiogram. FINDINGS: 1. Left ventricle shows moderate left ventricular hypertrophy with hyperdynamic left ventricular systolic function, ejection fraction 65% to 70%. No obvious regional wall motion abnormalities. 2. Left atrium is normal size, normal function. 3. The aortic valve, although sclerotic has normal function. ECHOCARDIOGRAM REPORT [id number] ADRIA KHALIL 4. The mitral valve has mild mitral regurgitation. 5. The right ventricle has right ventricular hypertrophy with normal function. 6. The tricuspid valve has mild tricuspid regurgitation. RVSP is normal. 7. Pulmonic valve is normal. 8. The right atrium is mildly dilated. 9. The right ventricle is mildly dilated. 10. Inflow characteristics show diastolic dysfunction. CONCLUSIONS: The patient has evidence of LVH with hyperdynamic left ventricular wall motion and evidence of diastolic dysfunction. TRANSINT:[id number] Voice Confirmation ID: [id number] DOCUMENT ID: [id number] 04/25/2017 Edited to correct date of service, dm. SAJI MARIE MD at 1038 CC: [id number] DICTATION DATE: 04/23/17 1200 KENO CLERK: 04/23/17 1222 DIS IN 05/01/17 [place] [id number] [place] [address]
--- NOTE | ~2017-04-21 | HP ---
PATIENT: ADRIA KHALIL MEDICAL RECORD: [id number] ACCOUNT: [id number] LOCATION:[address] : 47 ADMISSION DATE: 04/21/17 HISTORY AND PHYSICAL EXAMINATION REASON FOR ADMISSION: Shortness of breath, cough, and edema. HISTORY OF PRESENT ILLNESS: The patient is a 72-year-old female, poorly controlled type 2 diabetic with history of carotid disease. She had had a left carotid endarterectomy several weeks ago and recovering from that. Her developed upper respiratory tract infection, was flu negative, but she had been exposed to him. She developed cough and congestion for the last 3 days and family had attempted to get her to come to Emergency Room and she relented today. She has had low-grade fever, increasing lower edema in her extremities, and vague abdominal pain. In the ED, she was noted to be hypoxemic. Chest x-ray showed interstitial edema versus pneumonia. She has flu A positive. A V/Q scan is negative. PAST MEDICAL HISTORY: Chronic lymphedema, poorly controlled type 2 diabetes mellitus, carotid occlusive disease post-bilateral endarterectomies, essential hypertension, CVA remote, obesity, hyperlipidemia, osteoarthritis, and diabetic peripheral neuropathy. PAST SURGICAL HISTORY: She has had cataract surgery OU, total abdominal hysterectomy, tonsillectomy, and bilateral carotid endarterectomies. SOCIAL HISTORY: She is . Her is a heavy smoker. He has tried to taper. She has never smoked or used alcohol. FAMILY HISTORY: Positive for hypertension. MEDICATIONS: Plavix p.o. daily, aspirin 81 mg p.o. daily, Lantus insulin 25 units subq a.m. breakfast and 15 units subq q.p.m. supper, sliding scale Humalog 5 units a.c. breakfast, lunch and supper, metformin 1000 mg p.o. at h.s., clonidine 0.2 mg p.o. t.i.d., Norvasc 5 mg p.o. daily, Lipitor 80 mg p.o. with evening meal, Hytrin 2 mg capsules p.o. b.i.d., gemfibrozil 600 mg p.o. b.i.d., ferrous sulfate 325 mg p.o. daily, Mobic 7.5 mg p.o. daily, Lasix 20 mg tablets 2 in the morning and 1 in the evening, Acular ophthalmic drops 1 drop in left eye daily, Simbrinza 1% ophthalmic drops 1 drop left eye b.i.d. REVIEW OF SYSTEMS: GENERAL: She has felt poorly for the last 3-4 days with malaise and poor appetite. She has had low-grade fever. HEENT: No recent new visual change, sinus congestion, or sore throat. She has some trouble with her hearing. CARDIAC: Denies chest pain, but has had increasing edema over the last week. GASTROINTESTINAL: No ausea, vomiting, change in stools or blood per rectum. RESPIRATORY: Shortness of breath for the last 3-4 days. Cough. GENITOURINARY: Mild incontinence, no dysuria. MUSCULOSKELETAL: Chronic lumbago and arthritis in both knees. NEUROLOGIC: She has chronic numbness in bottoms of both feet. She has no significant deficits from her previous stroke. Her memory is intact. PSYCHIATRIC: Denies depressed mood. ENDOCRINE: Denies polyuria, polydipsia, heat or cold intolerance. HISTORY AND PHYSICAL [id number] ADRIA KHALIL ALLERGIES: None known. PHYSICAL EXAMINATION: VITAL SIGNS: Temperature 99.9 Fahrenheit orally, pulse 76 and regular, respirations were 24, blood pressure 155/57, sat of 80% on room air and 90% on 4 liters nasal cannula. GENERAL: The patient is alert and oriented, but appeared moderately ill. HEENT: Eyes are clear. Oropharynx shows dry mucous membranes. NECK: Supple without JVD or bruits. CHEST: Crackles in the bases with faint expiratory wheezes in the upper lobes. HEART: Tachycardic without murmur. ABDOMEN: Soft, nontender throughout. Bowel sounds are active. Minimal tenderness in the epigastric area, but no rebound. PELVIC: Deferred. EXTREMITIES: Shows gross bilateral lower extremity edema below the knees with some small bulla formation anteriorly on both shins. NEUROLOGIC: She is oriented to person, place, and time. Cranial nerves grossly intact. Gait was not tested. She has decreased sensation to touch in bottoms of both feet. INTEGUMENT: No petechiae, but bulla is noted on her lower extremities. PSYCHIATRIC: Denies depressed mood. LABORATORY DATA: White count 6500 with 84% neutrophils, H&H is 9.1 and 28.2, platelet count 213,000. Chemistry shows a BUN and creatinine of 40 and 1.5. Glucose is 107. Lactic acid is 1.5. Liver functions are normal. Creatine kinase is 1120. CPK-MB is 4.3. Troponin is 0.209. ProBNP is 1986. Urine is yellow, cloudy, 2+ blood, 5-10 red cells, 0-5 white cells, moderate bacteria. D-dimer is 2.92. Influenza A rapid screen is positive, B is negative. V/Q scan is negative for pulmonary embolus. IMAGING: Chest x-ray: Interstitial and airspace opacities with central perihilar prominence suggesting pulmonary edema, although pneumonia cannot be ruled out. ASSESSMENT: 1. Respiratory failure with possible pneumonia. 2. Influenza A. 3. Hypertension. 4. Chronic lymphedema. 5. Poorly controlled type 2 diabetes mellitus. 6. Chronic renal insufficiency. 7. Chronic anemia. 8. Diabetic peripheral neuropathy, hypertension, carotid occlusive disease, remote cerebrovascular accident. PLAN: The patient will be admitted to the medical floor unless she decompensates from pulmonary standpoint. We will place her on Tamiflu, broad-spectrum IV antibiotics, pulmonary toilet, and supplemental O2. Pulmonary consult will be obtained. TRANSINT:[id number] Voice Confirmation ID: [id number] DOCUMENT ID: [id number] HISTORY AND PHYSICAL [id number] ADRIA KHALIL TIMOTHY MD at 1407 CC: [id number] DICTATION DATE: 04/21/17 1706 SURFACE BOSS: 04/21/17 1905 ADM IN [place] [address] [place] [address]
[~2017-04-21 09:51] MED LIST changes: +CATAPRES0.2 MG PO
[2017-04-21 10:32] LABS: BASOPHILS 0.3 % (0-2); EOSINOPHILS 0.2 % (0-7); HEMATOCRIT 28.2 % (36.0-48.0); HEMOGLOBIN 9.1 g/dL (12-16); IMMATURE GRANULOCYTES 0.2 % (0-5); LYMPHOCYTES 4.8 % (15-50); MCH 30.5 pg (26.0-34.0); MCHC 32.3 g/dL (31.0-37.0); MCV 94.6 fL (80.0-100.0); MEAN PLATELET VOLUME 12.3 fL (7.4-10.4); NEUTROPHILS 83.5 % (40-80); RBC 2.98 10x6/uL (4.00-5.40); WBC 6.5 10x3/uL (4.8-10.8)
[2017-04-21 10:33] LABS: PLATELET COUNT 213 10x3/uL (130-400)
[2017-04-21 10:42] LABS: ALBUMIN 2.6 g/dL (3.4-5.0); ALKALINE PHOSPHATASE 78 U/L (46-116); ALT (SGPT) 32 U/L (10-68); BILIRUBIN - TOTAL 0.42 mg/dL (0.2-1.3); CALC OSMOLALITY 290 mosm/kg (275-300); CALCIUM 8.2 mg/dL (8.5-10.1); CARBON DIOXIDE 22.4 mmol/L (21.0-32.0); CHLORIDE - SERUM 104 mmol/L (98-107); CREATININE - SERUM 1.5 mg/dL (0.6-1.3); GLUCOSE 107 mg/dL (74-106); POTASSIUM - SERUM 4.2 mmol/L (3.5-5.1); PROTEIN - SERUM 5.7 g/dL (6.4-8.2); SODIUM 139 mmol/L (136-145); UREA NITROGEN 48 mg/dL (7-18); eGFR NON AFRICAN AMERICAN 36 mL/min (90-120)
[2017-04-21 10:58] LABS: CKMB 4.3 U/L (0.0-3.6); PRO BNP 986 pg/mL (0-125)
[2017-04-21 11:03] LABS: CREATINE KINASE 1120 UL (21-215)
[2017-04-21 11:04] LABS: TROPONIN-I 0.209 ng/mL (0.000-0.060)
[2017-04-21 11:32] LABS: APPEARANCE CLOUDY (CLEAR); BILIRUBIN NEGATIVE (NEGATIVE); COLOR YELLOW (YELLOW); GLUCOSE NEGATIVE (NEGATIVE); KETONE NEGATIVE (NEGATIVE); NITRITE NEGATIVE (NEGATIVE); PROTEIN 3+ mg/dL (NEGATIVE); SPECIFIC GRAVITY 1.015 (1.005-1.020); UROBILINOGEN NORMAL (NORMAL)
[2017-04-21 11:34] LABS: AMORPHOUS SEDIMENT >1+ /lpf (NONE SEEN); BACTERIA MODERATE /hpf (NONE SEEN); GRANULAR CAST 0-5 /lpf (NONE SEEN); WHITE CELLS - URINE 0-5 /hpf (0-5)
[2017-04-21 16:12] VITALS: BP 155/57; BMI 34.6
[2017-04-21 19:00] VITALS: BP 167/58
[2017-04-22] VITALS: BP 136/63
[2017-04-22 04:00] VITALS: BP 195/64
[2017-04-22 08:05] VITALS: BP 174/61
[2017-04-22 12:58] VITALS: BP 150/55
[2017-04-22 14:24] VITALS: Ht 157.5 cm; Wt 85.0 kg
[2017-04-22 17:23] VITALS: BP 148/65
[2017-04-22 19:00] VITALS: BP 166/64
[2017-04-23 04:00] VITALS: BP 206/87
[2017-04-23 05:47] LABS: BASOPHILS 0.1 % (0-2); EOSINOPHILS 0.6 % (0-7); HEMATOCRIT 24.1 % (36.0-48.0); HEMOGLOBIN 8.1 g/dL (12-16); IMMATURE GRANULOCYTES 0.4 % (0-5); LYMPHOCYTES 13.4 % (15-50); MCH 30.6 pg (26.0-34.0); MCHC 33.6 g/dL (31.0-37.0); MEAN PLATELET VOLUME 12.1 fL (7.4-10.4); MONOCYTES 7.6 % (2-11); NEUTROPHILS 77.9 % (40-80); PLATELET COUNT 240 10x3/uL (130-400); RBC 2.65 10x6/uL (4.00-5.40); RDW 14.5 % (11.5-14.5); WBC 7.1 10x3/uL (4.8-10.8)
[2017-04-23 05:57] LABS: MCV 90.9 fL (80.0-100.0)
[2017-04-23 06:07] LABS: ANION GAP 18.4 mmol/L (8-16); CALCIUM 8.8 mg/dL (8.5-10.1); CARBON DIOXIDE 22.9 mmol/L (21.0-32.0)
[2017-04-23 06:24] LABS: CREATININE - SERUM 1.9 mg/dL (0.6-1.3); POTASSIUM - SERUM 3.3 mmol/L (3.5-5.1)
[2017-04-23 09:03] VITALS: BP 201/74
[2017-04-23 13:25] VITALS: BP 167/63
[2017-04-23 16:34] VITALS: BP 128/62
[2017-04-23 19:00] VITALS: BP 140/61
[2017-04-24 04:00] VITALS: BP 158/55
[2017-04-24 05:51] LABS: BASOPHILS 0.2 % (0-2); EOSINOPHILS 2.3 % (0-7); HEMATOCRIT 23.4 % (36.0-48.0); HEMOGLOBIN 7.7 g/dL (12-16); IMMATURE GRANULOCYTES 0.8 % (0-5); LYMPHOCYTES 15.1 % (15-50); MCH 30.4 pg (26.0-34.0); MCHC 32.9 g/dL (31.0-37.0); MCV 92.5 fL (80.0-100.0); MEAN PLATELET VOLUME 11.5 fL (7.4-10.4); NEUTROPHILS 72.6 % (40-80); PLATELET COUNT 256 10x3/uL (130-400); RBC 2.53 10x6/uL (4.00-5.40); RDW 14.7 % (11.5-14.5)
[2017-04-24 06:25] LABS: ANION GAP 14.3 mmol/L (8-16); CALCIUM 8.5 mg/dL (8.5-10.1); CARBON DIOXIDE 24.6 mmol/L (21.0-32.0); CREATININE - SERUM 1.7 mg/dL (0.6-1.3); PHOSPHOROUS 3.4 mg/dL (2.5-4.9); POTASSIUM - SERUM 3.9 mmol/L (3.5-5.1)
[2017-04-24 08:33] VITALS: BP 161/68
[2017-04-24 12:03] VITALS: BP 106/64
[2017-04-24 16:02] VITALS: BP 136/92
[2017-04-24 21:43] VITALS: BP 155/60
[2017-04-25 06:45] VITALS: BP 158/60
[2017-04-25 08:28] VITALS: BP 203/53
[2017-04-25 11:57] LABS: APPEARANCE CLOUDY (CLEAR); BACTERIA MODERATE /hpf (NONE SEEN); BILIRUBIN NEGATIVE (NEGATIVE); COLOR YELLOW (YELLOW); EPITHELIAL CELLS 0-5 /hpf (0-5); GLUCOSE 100 mg/dL (NEGATIVE); GRANULAR CAST OCC /lpf (NONE SEEN); HYALINE CAST RARE /lpf (NONE SEEN); KETONE NEGATIVE (NEGATIVE); MUCUS <1+ /lpf (NONE SEEN); NITRITE NEGATIVE (NEGATIVE); PROTEIN 3+ mg/dL (NEGATIVE); RED CELLS - URINE >50 /hpf (0-5); SPECIFIC GRAVITY 1.015 (1.005-1.020); UROBILINOGEN NORMAL (NORMAL); WHITE CELLS - URINE 0-5 /hpf (0-5)
[2017-04-25 12:48] VITALS: BP 180/73
[2017-04-25 16:09] VITALS: BP 147/54
[2017-04-25 23:00] VITALS: BP 185/86
[2017-04-26 08:00] VITALS: BP 175/52
[2017-04-26 12:00] VITALS: BP 193/66
[2017-04-26 16:00] VITALS: BP 166/59
[2017-04-26] MEDS ORDERED: LANTUS INSULIN10 ML SC (18:22)
[2017-04-26 21:36] VITALS: BP 168/43
[2017-04-27 01:29] VITALS: BP 158/62
[2017-04-27 07:23] LABS: BASOPHILS 0.1 % (0-2); HEMATOCRIT 24.2 % (36.0-48.0); HEMOGLOBIN 7.8 g/dL (12-16); IMMATURE GRANULOCYTES 6.9 % (0-5); LYMPHOCYTES 12.5 % (15-50); MCH 29.5 pg (26.0-34.0); MCHC 32.2 g/dL (31.0-37.0); MCV 91.7 fL (80.0-100.0); MEAN PLATELET VOLUME 10.8 fL (7.4-10.4); MONOCYTES 9.3 % (2-11); NEUTROPHILS 68.2 % (40-80); PLATELET COUNT 292 10x3/uL (130-400); RBC 2.64 10x6/uL (4.00-5.40); RDW 14.2 % (11.5-14.5)
[2017-04-27 07:28] LABS: ANION GAP 14.2 mmol/L (8-16); CALCIUM 8.4 mg/dL (8.5-10.1); CARBON DIOXIDE 24.5 mmol/L (21.0-32.0); CREATININE - SERUM 1.7 mg/dL (0.6-1.3); POTASSIUM - SERUM 3.7 mmol/L (3.5-5.1)
[2017-04-27 10:22] VITALS: BP 179/65
[2017-04-27 13:42] VITALS: BP 165/76
[2017-04-27 16:35] VITALS: BP 163/58
[2017-04-27 20:00] VITALS: BP 153/51
[2017-04-28] VITALS: BP 169/58
[2017-04-28 04:00] VITALS: BP 156/57
[2017-04-28 06:22] LABS: BASOPHILS 0.1 % (0-2); EOSINOPHILS 5.7 % (0-7); IMMATURE GRANULOCYTES 6.3 % (0-5); LYMPHOCYTES 14.9 % (15-50); MCH 29.8 pg (26.0-34.0); MCHC 32.2 g/dL (31.0-37.0); MCV 92.7 fL (80.0-100.0); MEAN PLATELET VOLUME 11.1 fL (7.4-10.4); MONOCYTES 10.4 % (2-11); NEUTROPHILS 62.6 % (40-80); PLATELET COUNT 290 10x3/uL (130-400); RBC 2.48 10x6/uL (4.00-5.40); RDW 14.3 % (11.5-14.5)
[2017-04-28 06:41] LABS: ALBUMIN 1.9 g/dL (3.4-5.0); ANION GAP 15.2 mmol/L (8-16); BILIRUBIN - TOTAL 0.25 mg/dL (0.2-1.3); CALCIUM 8.6 mg/dL (8.5-10.1); CARBON DIOXIDE 21.6 mmol/L (21.0-32.0); CREATININE - SERUM 1.6 mg/dL (0.6-1.3); MAGNESIUM - SERUM 2.3 mg/dL (1.8-2.4); PHOSPHOROUS 3.6 mg/dL (2.5-4.9); POTASSIUM - SERUM 3.8 mmol/L (3.5-5.1); PROTEIN - SERUM 6.5 g/dL (6.4-8.2)
[2017-04-28 07:20] LABS: HEMOGLOBIN 7.4 g/dL (12-16)
[2017-04-28 08:04] VITALS: BP 155/56
[2017-04-28 12:09] VITALS: BP 157/42
[2017-04-28 16:28] VITALS: BP 158/61
[2017-04-28 20:00] VITALS: BP 148/64
[2017-04-29 04:00] VITALS: BP 194/62
[2017-04-29 04:55] LABS: BASOPHILS 0.3 % (0-2); EOSINOPHILS 5.3 % (0-7); HEMATOCRIT 26.8 % (36.0-48.0); HEMOGLOBIN 8.5 g/dL (12-16); IMMATURE GRANULOCYTES 4.9 % (0-5); LYMPHOCYTES 17.4 % (15-50); MCH 29.1 pg (26.0-34.0); MCHC 31.7 g/dL (31.0-37.0); MCV 91.8 fL (80.0-100.0); MEAN PLATELET VOLUME 11.1 fL (7.4-10.4); MONOCYTES 7.3 % (2-11); NEUTROPHILS 64.8 % (40-80); PLATELET COUNT 298 10x3/uL (130-400); RBC 2.92 10x6/uL (4.00-5.40); RDW 15.6 % (11.5-14.5); WBC 7.1 10x3/uL (4.8-10.8)
[2017-04-29 05:20] LABS: % SATURATION 23 % (15-55); IRON 53 ug/dl (35-150); TOTAL IRON BIND CAPACITY 226 ug/dl (260-445); UNSAT IRON BIND CAPACITY 173 ug/dl (150-375)
[2017-04-29 05:33] LABS: ANION GAP 13.9 mmol/L (8-16); CALCIUM 8.6 mg/dL (8.5-10.1); CARBON DIOXIDE 23.2 mmol/L (21.0-32.0); CREATININE - SERUM 1.7 mg/dL (0.6-1.3); POTASSIUM - SERUM 4.1 mmol/L (3.5-5.1)
[2017-04-29 08:14] VITALS: BP 194/61
[2017-04-29 12:42] VITALS: BP 200/58
[2017-04-29 16:37] VITALS: BP 159/52
[2017-04-29 20:00] VITALS: BP 154/55
[2017-04-30 04:00] VITALS: BP 161/61
[2017-04-30 08:17] LABS: FOLATE (FOLIC ACID) - SERUM 10.6 ng/mL (>3.0)
[2017-04-30 08:54] VITALS: BP 166/77
[2017-04-30 12:28] VITALS: BP 170/60
[2017-04-30 21:00] VITALS: BP 165/58
[2017-05-01 06:04] VITALS: BP 170/47
[2017-05-01 08:37] VITALS: BP 169/70
[2017-05-01 09:13] LABS: HEMOGLOBIN 9.2 g/dL (12-16); LYMPHOCYTES 15.7 % (15-50); MCH 29.9 pg (26.0-34.0); MCHC 32.9 g/dL (31.0-37.0); MCV 90.9 fL (80.0-100.0); PLATELET COUNT 339 10x3/uL (130-400); RBC 3.08 10x6/uL (4.00-5.40); WBC 9.4 10x3/uL (4.8-10.8)
[2017-05-01 09:20] LABS: ANION GAP 14.9 mmol/L (8-16); CALCIUM 8.5 mg/dL (8.5-10.1); CARBON DIOXIDE 22.2 mmol/L (21.0-32.0); CREATININE - SERUM 1.5 mg/dL (0.6-1.3); POTASSIUM - SERUM 4.1 mmol/L (3.5-5.1)
[2017-05-01 12:43] VITALS: BP 183/55
[2017-05-01] MEDS ORDERED: ALBUTEROL2.5 MG/3 M INH (15:15)
[2017-05-01] MEDS ORDERED: IPRAT-ALBUT 0.5-3 ML UPD (15:15)
[2017-05-01] MEDS ORDERED: BENZONATATE200 MG PO (15:16)
[2017-05-01] MEDS ORDERED: ACETAMINOPHEN325 MG PO (15:16)
[2017-05-01] MEDS ORDERED: PULMICORT0.5 MG/21 INH (15:16)
[2017-05-01] MEDS ORDERED: FLUTICASONE PRO16 GM NASAL (15:17)
[2017-05-01] MEDS ORDERED: MUCINEX600 MG PO (15:17)
[2017-05-01] MEDS ORDERED: SINGULAIR10 MG PO (15:17)
[2017-05-01] MEDS ORDERED: AFRIN NASAL SPR15 ML NASAL (15:17)
[2017-05-01] MEDS ORDERED: SALINE NASAL SP45 ML NS (15:18)
[2017-05-01] MEDS ORDERED: GAS-X80 MG PO (15:19)
[2017-05-01] MEDS ORDERED: CALMOSEPTINE OI71 GM (15:19)
[2017-05-01] MEDS ORDERED: NYSTATIN1 PWD TP (15:20)
[2017-05-01 16:46] VITALS: BP 169/63
== END 2017-05-01 19:28 | DRG 177 ==
LOC: D.ER 09:51 → D.M2 14:23
PROVIDERS: Family Medicine; Internal Medicine Pulmonary Disease
PROC: 0T9B70Z Drainage of Bladder with Drainage Device, Via Natural or Artificial Opening (ICD-10-PCS; principal; 2017-04-21)
DX: J11.08 Influenza due to unidentified influenza virus with specified pneumonia (principal); J96.01 Acute respiratory failure with hypoxia; J15.6 Pneumonia due to other Gram-negative bacteria; I50.33 Acute on chronic diastolic (congestive) heart failure; I13.0 Hypertensive heart and chronic kidney disease with heart failure and stage 1 through stage 4 chronic kidney disease, or unspecified chronic kidney disease; J15.20 Pneumonia due to staphylococcus, unspecified; J15.4 Pneumonia due to other streptococci; J11.00 Influenza due to unidentified influenza virus with unspecified type of pneumonia; J11.1 Influenza due to unidentified influenza virus with other respiratory manifestations; E11.42 Type 2 diabetes mellitus with diabetic polyneuropathy; E11.21 Type 2 diabetes mellitus with diabetic nephropathy; E11.22 Type 2 diabetes mellitus with diabetic chronic kidney disease; E11.65 Type 2 diabetes mellitus with hyperglycemia; N18.3 Chronic kidney disease, stage 3 (moderate); D50.9 Iron deficiency anemia, unspecified; G47.33 Obstructive sleep apnea (adult) (pediatric); I08.1 Rheumatic disorders of both mitral and tricuspid valves; E78.5 Hyperlipidemia, unspecified; M19.90 Unspecified osteoarthritis, unspecified site; Z86.73 Personal history of transient ischemic attack (TIA), and cerebral infarction without residual deficits; Z66 Do not resuscitate; M10.9 Gout, unspecified

== ENCOUNTER 2017-05-01 17:26 | Inpatient (IN) | payer MEDICARE ==
[~2017-05-01] VITALS: Ht 157.5 cm; Wt 84.8 kg
--- NOTE | ~2017-05-01 | RHP ---
PATIENT: ADRIA KHALIL MEDICAL RECORD: [id number] ACCOUNT: [id number] LOCATION:[facility] [id number] : 46 ADMISSION DATE: 05/01/17 REHABILITATION HISTORY AND PHYSICAL EXAMINATION POST ADMISSION PHYSICIAN EXAMINATION POST-ADMISSION PHYSICAL EXAMINATION AND HISTORY AND PHYSICAL ADMITTING DIAGNOSIS: Pneumonia. HISTORY OF PRESENT ILLNESS: The patient is a 72-year-old female patient admitted to the inpatient rehab secondary to debility from pneumonia and influenza A. The patient has poorly controlled type 2 diabetic and has a history of carotid disease. She has had a left carotid endarterectomy several weeks prior to this acute hospitalist admit, has been recovering from that, she developed cough and congestion 3 days prior to her admit, presented to the ED with low-grade fever, increasing lower edema in her extremities and vague abdominal pain. She was noted to be hypoxic in the ED. Chest x-ray showed interstitial edema versus pneumonia. She tested for positive A, flu type. She was admitted to the acute hospitalist for pneumonia and flu A. She has a history of carotid artery disease status post bilateral carotid endarterectomy, TIA, CVA, diabetes, neuropathy, nephropathy, history of hypertension, hyperlipidemia, iron deficiency anemia, osteoarthritis, and lymphedema. She states that she is very weak and continues to have lower extremity edema and she has been slowly diuresing due to kidney dysfunction. She lives at home with her , was moderately independent with a rolling walker for mobility and is independent with her ADLs including she was still able to cook. She is noted to have proximal muscle weakness with difficulty rising from a chair. She had been sleeping sitting up in a recliner due to difficulty breathing and edema that she now has in her lower extremities. She is currently moderate to total assist for mobility and use a rolling walker set up for max assist for ADLs. She gets supplemental O2 and is weaned off at this time, but is being closely monitored for desaturation and receiving this p.r.n. She states that she has difficulty recovering after having carotid endarterectomy surgery. She plans to return home with her and hopefully get back to her prior level of functioning and would better if possible. COMORBIDITIES: In this patient include diabetes, diastolic heart failure, influenza A, respiratory failure with hypoxia, hypertension, lymphedema, renal insufficiency, anemia, peripheral neuropathy, carotid occlusive disease, TIA, hyperlipidemia, osteoarthritis, chronic renal failure, community-acquired pneumonia, gout, got a history of sinusitis, reflux disease, cough. She has had a history of iron deficient anemia, osteoarthritis, debility. PAST MEDICAL HISTORY: Significant for chronic lymphedema, poorly controlled diabetes, carotid occlusive disease, status post bilateral carotid endarterectomies, hypertension, CVA, obesity, hyperlipidemia, osteoarthritis, and neuropathy. PAST SURGICAL HISTORY: Includes cataract surgery, abdominal hysterectomy, tonsillectomy, and bilateral carotid endarterectomies. ALLERGIES: No known drug allergies. CURRENT MEDICATIONS: Include Acular eye drops as needed, Plavix 75 mg daily, HISTORY AND PHYSICAL [id number] ADRIA KHALIL Meloxicam 7.5 mg daily. She is on insulin 25 units of Lantus daily. She is on gemfibrozil 600 mg b.i.d. She is on Lasix 10 mg daily; furosemide 20 mg in the morning, she takes 10 mg at noon. She is on Flonase nasal spray. She is on budesonide 0.5 mg b.i.d., aspirin chewable 81 mg daily, Norvasc 5 mg daily, Terazosin 2 mg b.i.d., simethicone 80 mg t.i.d. p.r.n. She is on Afrin nasal spray as needed. She is on Nystatin powder to apply to reddened areas of her skin as needed, Singulair 10 mg at bedtime, metformin 1000 mg b.i.d. She is on Calmoseptine to apply b.i.d., DuoNeb updrafts as needed. She is on intermediate resistance sliding scale of Humalog. She is on Lantus 50 mg at bedtime, Mucinex 600 mg b.i.d., Pepcid 20 mg at bedtime. Clonidine 0.2 mg b.i.d. She on Tessalon Perles 200 mg t.i.d., Lipitor 80 mg at bedtime, Tylenol 650 q.4 hours p.r.n., albuterol and Atrovent updrafts as needed, and polyethylene glycol 17 grams in 8 ounces of water daily. HABITS: No alcohol or tobacco use. FAMILY HISTORY: Noncontributory. SOCIAL HISTORY: The patient hopes to return back home with her and get back to her prior level of functioning. REVIEW OF SYSTEMS: GENERAL: Does complain of weakness. HEENT: Denies cold, cough or congestion at this time. CARDIOVASCULAR: Denies any chest pain. LUNGS: Does complain of shortness of breath when getting up and getting around. PHYSICAL EXAMINATION: VITAL SIGNS: Stable. She is afebrile. GENERAL: Generally is somewhat obese female, in no acute distress, alert upon exam. HEENT: Normocephalic and atraumatic. Mucosa moist. NECK: Supple, with no lymphadenopathy. LUNGS: Coarse breath sounds bilaterally with decreased breath sounds in the bases. CARDIOVASCULAR: Regular rate and rhythm. ABDOMEN: Benign. EXTREMITIES: No clubbing, cyanosis or edema. NEUROLOGIC: Seems intact. LABORATORY DATA: White count is 9.7, H&H 8.5 and 27.3 and platelet count was noted to be 329. Sodium is 140, potassium 4.7, BUN and creatinine of 53 and 1.6 and blood sugar is noted to be 93. ASSESSMENT: This is a 72-year-old female patient admitted to rehab with a working diagnosis of debility secondary to pneumonia. The patient has potential to make improvement. We instituted the following multidisciplinary therapies including to, but not limited to physical, occupational, respiratory, speech, nutritional services, prosthetics and orthotics. Given her complex condition and risk for more complications, rehabilitation services cannot be provided at a low level of care such as a alf facility. PLAN: 1. Admit to [facility] rehab for intensive inpatient therapy to include the following disciplines: HISTORY AND PHYSICAL [id number] ADRIA KHALIL A. Physical therapy to improve gait, all transfer skills and bed mobility to a modified independent level. B. Occupational therapy to improve activities of daily living to a modified independent level. C. Case management to assist with discharge planning and placement options. D. Nutrition to assist with nutritional needs. E. Rehabilitation nursing to assist in monitoring the patient's underlying medical conditions and to assist with any type of bowel or bladder management. 2. The patient's current medications and medical care will be continued. 3. The patient will be placed on standard fall precautions. 4. The patient's estimated length of stay is approximately 7-10 days. 5. Discuss this patient during care team staff meeting this week. TRANSINT:[id number] Voice Confirmation ID: [id number] DOCUMENT ID: [id number] ADITI notes whether there has been none or any medical/functional change since admission: - No change since pre-admission screen. ADITI attests patient continues to be appropriate for IRF: - Continues to be appropriate for IRF. HALIE GOVEA MD at 1317 CC: [id number] DICTATION DATE: 05/02/17 1051 SENIOR ANALYST DEVELOPER: 05/02/17 1300 ADM IN [place] [id number] [place] [id number]
[~2017-05-01 17:26] MED LIST changes: +ACETAMINOPHEN325 MG PO; +AFRIN NASAL SPR15 ML NASAL; +ALBUTEROL2.5 MG/3 M INH; +BENZONATATE200 MG PO; +CALMOSEPTINE OI71 GM; +FLUTICASONE PRO16 GM NASAL; +GAS-X80 MG PO; +IPRAT-ALBUT 0.5-3 ML UPD; +MUCINEX600 MG PO; +NYSTATIN1 PWD TP; +PULMICORT0.5 MG/21 INH; +SALINE NASAL SP45 ML NS; +SINGULAIR10 MG PO
[2017-05-01 20:20] VITALS: BMI 34.3
[2017-05-01 23:05] VITALS: BP 164/48
[2017-05-02 05:59] LABS: BASOPHILS 0.3 % (0-2); EOSINOPHILS 2.7 % (0-7); HEMATOCRIT 27.3 % (36.0-48.0); HEMOGLOBIN 8.5 g/dL (12-16); IMMATURE GRANULOCYTES 0.9 % (0-5); MCH 29.6 pg (26.0-34.0); MCHC 31.1 g/dL (31.0-37.0); MEAN PLATELET VOLUME 11.1 fL (7.4-10.4); MONOCYTES 6.4 % (2-11); NEUTROPHILS 74.7 % (40-80); PLATELET COUNT 329 10x3/uL (130-400); RBC 2.87 10x6/uL (4.00-5.40); RDW 15.2 % (11.5-14.5); WBC 9.7 10x3/uL (4.8-10.8)
[2017-05-02 06:07] LABS: MCV 95.1 fL (80.0-100.0)
[2017-05-02 06:19] LABS: CALCIUM 8.7 mg/dL (8.5-10.1); CARBON DIOXIDE 19.7 mmol/L (21.0-32.0); CREATININE - SERUM 1.6 mg/dL (0.6-1.3); POTASSIUM - SERUM 4.7 mmol/L (3.5-5.1)
[2017-05-02 08:00] VITALS: BP 164/54
[2017-05-02 10:27] VITALS: Ht 157.5 cm; Wt 84.8 kg
[2017-05-02 19:15] VITALS: BP 180/57
[2017-05-03 08:00] VITALS: BP 170/50
[2017-05-03 23:15] VITALS: BP 174/60
[2017-05-04 08:38] VITALS: BP 163/44
[2017-05-04 22:59] VITALS: BP 199/64
[2017-05-05 06:34] LABS: BASOPHILS 0.4 % (0-2); EOSINOPHILS 2.1 % (0-7); HEMATOCRIT 27.4 % (36.0-48.0); HEMOGLOBIN 8.4 g/dL (12-16); IMMATURE GRANULOCYTES 0.7 % (0-5); LYMPHOCYTES 15.5 % (15-50); MCH 29.3 pg (26.0-34.0); MCHC 30.7 g/dL (31.0-37.0); MCV 95.5 fL (80.0-100.0); MEAN PLATELET VOLUME 11.3 fL (7.4-10.4); MONOCYTES 9.7 % (2-11); NEUTROPHILS 71.6 % (40-80); PLATELET COUNT 333 10x3/uL (130-400); RBC 2.87 10x6/uL (4.00-5.40); RDW 15.1 % (11.5-14.5); WBC 7.7 10x3/uL (4.8-10.8)
[2017-05-05 06:46] LABS: ANION GAP 13.6 mmol/L (8-16); CALCIUM 8.5 mg/dL (8.5-10.1); CREATININE - SERUM 1.6 mg/dL (0.6-1.3); POTASSIUM - SERUM 4.6 mmol/L (3.5-5.1)
[2017-05-05 07:40] VITALS: BP 140/54
[2017-05-05 20:48] VITALS: BP 185/62
[2017-05-06 09:09] VITALS: BP 161/56
[2017-05-06 19:40] VITALS: BP 122/59
[2017-05-07 06:32] LABS: BASOPHILS 0.5 % (0-2); HEMATOCRIT 26.9 % (36.0-48.0); HEMOGLOBIN 8.3 g/dL (12-16); IMMATURE GRANULOCYTES 0.5 % (0-5); LYMPHOCYTES 17.5 % (15-50); MCH 29.5 pg (26.0-34.0); MCHC 30.9 g/dL (31.0-37.0); MCV 95.7 fL (80.0-100.0); MEAN PLATELET VOLUME 11.3 fL (7.4-10.4); MONOCYTES 13.8 % (2-11); NEUTROPHILS 64.7 % (40-80); PLATELET COUNT 286 10x3/uL (130-400); RBC 2.81 10x6/uL (4.00-5.40); RDW 15.5 % (11.5-14.5); WBC 6.2 10x3/uL (4.8-10.8)
[2017-05-07 07:11] LABS: ANION GAP 14.8 mmol/L (8-16); CALCIUM 8.7 mg/dL (8.5-10.1); CARBON DIOXIDE 22.7 mmol/L (21.0-32.0); CREATININE - SERUM 1.7 mg/dL (0.6-1.3); POTASSIUM - SERUM 4.5 mmol/L (3.5-5.1)
[2017-05-07 07:41] VITALS: BP 156/67
[2017-05-07 20:00] VITALS: BP 162/65
[2017-05-08 08:19] VITALS: BP 155/41
== END 2017-05-08 12:32 | disposition home or self-care (01) | DRG 193 ==
LOC: D.REHAB 17:26
PROVIDERS: Emergency Medicine
DX: J11.00 Influenza due to unidentified influenza virus with unspecified type of pneumonia (principal); J96.91 Respiratory failure, unspecified with hypoxia; I50.33 Acute on chronic diastolic (congestive) heart failure; I13.0 Hypertensive heart and chronic kidney disease with heart failure and stage 1 through stage 4 chronic kidney disease, or unspecified chronic kidney disease; E11.22 Type 2 diabetes mellitus with diabetic chronic kidney disease; N18.9 Chronic kidney disease, unspecified; I89.0 Lymphedema, not elsewhere classified; D64.9 Anemia, unspecified; G62.9 Polyneuropathy, unspecified; E78.5 Hyperlipidemia, unspecified; M19.90 Unspecified osteoarthritis, unspecified site; K21.9 Gastro-esophageal reflux disease without esophagitis; Z66 Do not resuscitate; E11.65 Type 2 diabetes mellitus with hyperglycemia

== ENCOUNTER 2017-05-26 16:47 | Inpatient (IN) | payer OTHER ==
[~2017-05-26] VITALS: Ht 157.5 cm; Wt 85.2 kg
--- NOTE | ~2017-05-26 | HP ---
PATIENT: ADRIA KHALIL MEDICAL RECORD: [id number] ACCOUNT: [id number] LOCATION:D.[facility] [id number] : 47 ADMISSION DATE: 05/26/17 HISTORY AND PHYSICAL EXAMINATION DATE OF ADMISSION: 05/26/2017 REASON FOR ADMISSION: Anasarca. HISTORY OF PRESENT ILLNESS: This is a 72-year-old female who had carotid endarterectomy not too long ago and then was admitted into the hospital on 04/21/2017 for shortness of breath, cough, and edema, found to have a healthcare-acquired pneumonia, influenza type A, and stayed in the hospital for 10-11 days before being transferred to rehab. She has been out of rehab for over 2 weeks now[address] She saw Dr. Baker about 2 weeks ago and she was having increased swelling. He increased her Lasix to twice a day and she came back in today for lab, but she has basically gained 20 more pounds since she saw Dr. Baker in 05/13/2017. She states she is not drinking a large amount of fluids, her brings in a list of her weights over the last 2 weeks' time. Now, she is having increased shortness of breath because of all the fluid buildup in her arms, legs, and abdomen. She denies any chest pain. She is being admitted for anasarca. PAST MEDICAL HISTORY: Otherwise, she does have chronic lymphedema, poorly controlled type 2 diabetes, carotid occlusive disease, essential hypertension, remote history of stroke, obesity, hyperlipidemia, osteoarthritis, and diabetic peripheral neuropathy. She has anemia of chronic disease. She has stage III chronic kidney disease. PAST SURGICAL HISTORY: Cataract surgery bilaterally, total abdominal hysterectomy, tonsillectomy, and bilateral carotid endarterectomies. SOCIAL HISTORY: , retired. HABITS: She has never smoked but has been exposed to secondhand smoke through her who is a heavy smoker. She denies any alcohol or illicit drug use. FAMILY HISTORY: Significant for hypertension. HOME MEDICATIONS: Include Humalog insulin per sliding scale, iron sulfate 325 mg once a day, Pepcid 20 mg at bedtime, Singulair 10 mg at bedtime, Tessalon Perles 200 mg 3 times a day as needed, Plavix 75 mg once a day, clonidine 0.2 p.r.n. elevated blood pressure, atorvastatin 80 mg once a day, gemfibrozil 600 mg twice a day, meloxicam 7.5 once a day, furosemide 20 mg 2 tablets a day, metformin 1000 mg a day, aspirin 81 mg a day, Voltaren topical gel p.r.n., amlodipine 5 mg a day, Lantus 25 units in the morning and 50 units in the evening. ALLERGIES: None known. REVIEW OF SYSTEMS: GENERAL: She has had a 20-pound weight gain in just the last 2 weeks. HEENT: She has sinus trouble. RESPIRATORY: No history of asthma or emphysema. CARDIAC: No known coronary artery disease but has carotid occlusive disease. HISTORY AND PHYSICAL [id number] ADRIA KHALIL GASTROINTESTINAL: Has had reflux. GENITOURINARY: No significant problems there. MUSCULOSKELETAL: She has arthritic aches and pains. NEUROLOGIC: She has had a stroke in the past. No seizures. No migraines. PSYCHIATRIC: No depression or melancholia. PHYSICAL EXAMINATION: VITAL SIGNS: Blood pressure in my office 162/80, O2 sat was 85% on room air. GENERAL: She is sitting on her Rollator. HEENT: Grossly within normal limits. NECK: Supple. No bruit. HEART: Regular rate and rhythm. LUNGS: Diminished breath sounds bilaterally. There are no rales or wheeze. ABDOMEN: Obese with pitting edema noted. EXTREMITIES: Pitting edema all the way up her legs, skin is tense, arms are the same. NEUROLOGIC: Intact. LABORATORY DATA: Done in the hospital, CBC with a white count of 8400, hemoglobin 9.0, hematocrit 30.1, and platelet count is normal. Sodium 146, potassium 4.1, chloride 109, CO2 of 26, BUN 49, creatinine 1.5 which is about normal for her, glucose 141, calcium 8.4. AST and ALT are both normal. ProBNP 343. Albumin is low at 3.9. TSH 2.59. Free T4 0.71. ASSESSMENT: 1. Anasarca. 2. Hypertension. 3. Chronic lymphedema. 4. Chronic kidney disease. 5. Anemia of chronic disease. PLAN: We will try Bumex instead of Lasix. We will give this IV. Other tests and procedures are as warranted. TRANSINT:[id number] Voice Confirmation ID: [id number] DOCUMENT ID: [id number] KAYLYNN BERNAL MD at 0749 CC: [id number] DICTATION DATE: 05/26/172114 AIRPLANE FLIGHT ATTENDANT SUPERVISOR: 05/26/172207 ADM IN [facility] [address] [place] [id number]
[2017-05-26 19:04] LABS: BASOPHILS 0.4 % (0-2); EOSINOPHILS 1.5 % (0-7); HEMATOCRIT 30.1 % (36.0-48.0); IMMATURE GRANULOCYTES 0.5 % (0-5); LYMPHOCYTES 10.8 % (15-50); MCH 29.8 pg (26.0-34.0); MCHC 29.9 g/dL (31.0-37.0); MCV 99.7 fL (80.0-100.0); MEAN PLATELET VOLUME 11.6 fL (7.4-10.4); MONOCYTES 7.4 % (2-11); NEUTROPHILS 79.4 % (40-80); PLATELET COUNT 264 10x3/uL (130-400); RBC 3.02 10x6/uL (4.00-5.40); RDW 18.7 % (11.5-14.5); WBC 8.4 10x3/uL (4.8-10.8)
[2017-05-26 19:24] LABS: ALBUMIN 2.9 g/dL (3.4-5.0); ANION GAP 14.5 mmol/L (8-16); BILIRUBIN - TOTAL 0.24 mg/dL (0.2-1.3); CALCIUM 8.4 mg/dL (8.5-10.1); CARBON DIOXIDE 26.6 mmol/L (21.0-32.0); CREATININE - SERUM 1.5 mg/dL (0.6-1.3); POTASSIUM - SERUM 4.1 mmol/L (3.5-5.1); PROTEIN - SERUM 6.8 g/dL (6.4-8.2)
[2017-05-26 19:34] LABS: T4 THYROXIN - FREE 0.71 ng/dL (0.76-1.46); THYROID STIMULATING HORMONE 2.59 uIU/mL (0.36-3.74)
[2017-05-27 00:14] VITALS: BP 151/54; BMI 36.3
[2017-05-27 04:00] VITALS: BP 156/57
[2017-05-27 05:03] LABS: BASOPHILS 0.6 % (0-2); EOSINOPHILS 2.6 % (0-7); HEMATOCRIT 28.4 % (36.0-48.0); HEMOGLOBIN 8.3 g/dL (12-16); IMMATURE GRANULOCYTES 0.3 % (0-5); LYMPHOCYTES 17.5 % (15-50); MCHC 29.2 g/dL (31.0-37.0); MCV 99.3 fL (80.0-100.0); MEAN PLATELET VOLUME 11.5 fL (7.4-10.4); MONOCYTES 7.4 % (2-11); NEUTROPHILS 71.6 % (40-80); PLATELET COUNT 249 10x3/uL (130-400); RBC 2.86 10x6/uL (4.00-5.40); RDW 18.6 % (11.5-14.5); WBC 6.6 10x3/uL (4.8-10.8)
[2017-05-27 05:25] LABS: ANION GAP 11.9 mmol/L (8-16); CALCIUM 8.2 mg/dL (8.5-10.1); CREATININE - SERUM 1.5 mg/dL (0.6-1.3); POTASSIUM - SERUM 3.9 mmol/L (3.5-5.1)
[2017-05-27 09:42] VITALS: BP 158/62
[2017-05-27 11:11] VITALS: Ht 157.5 cm; Wt 85.2 kg
[2017-05-27] MEDS ORDERED: COMBIGAN OPHT DR5 ML LEFT EYE (11:32)
[2017-05-27] MEDS ORDERED: SIMBRINZA 1%-0.28 ML LEFT EYE (11:32)
[2017-05-27 13:19] VITALS: BP 180/69
[2017-05-27 16:17] LABS: APPEARANCE HAZY (CLEAR); BILIRUBIN NEGATIVE (NEGATIVE); COLOR YELLOW (YELLOW); GLUCOSE 50 mg/dL (NEGATIVE); KETONE NEGATIVE (NEGATIVE); NITRITE NEGATIVE (NEGATIVE); PROTEIN 1+ mg/dL (NEGATIVE); UROBILINOGEN NORMAL (NORMAL)
[2017-05-27 16:18] LABS: BACTERIA FEW /hpf (NONE SEEN); EPITHELIAL CELLS OCC /hpf (0-5); RED CELLS - URINE >50 /hpf (0-5); WHITE CELLS - URINE 0-5 /hpf (0-5)
[2017-05-27 17:02] VITALS: BP 201/72
[2017-05-28] VITALS: BP 105/54
[2017-05-28 04:00] VITALS: BP 128/65
[2017-05-28 05:32] LABS: BASOPHILS 0.6 % (0-2); EOSINOPHILS 1.9 % (0-7); HEMATOCRIT 29.2 % (36.0-48.0); HEMOGLOBIN 8.7 g/dL (12-16); IMMATURE GRANULOCYTES 0.1 % (0-5); LYMPHOCYTES 11.5 % (15-50); MCH 29.7 pg (26.0-34.0); MCHC 29.8 g/dL (31.0-37.0); MCV 99.7 fL (80.0-100.0); MEAN PLATELET VOLUME 11.7 fL (7.4-10.4); MONOCYTES 9.2 % (2-11); NEUTROPHILS 76.7 % (40-80); PLATELET COUNT 236 10x3/uL (130-400); RBC 2.93 10x6/uL (4.00-5.40); RDW 18.8 % (11.5-14.5); WBC 6.7 10x3/uL (4.8-10.8)
[2017-05-28 05:39] LABS: ANION GAP 12.1 mmol/L (8-16); CALCIUM 8.5 mg/dL (8.5-10.1); CARBON DIOXIDE 27.9 mmol/L (21.0-32.0); CREATININE - SERUM 1.4 mg/dL (0.6-1.3)
[2017-05-28 08:38] VITALS: BP 157/57
[2017-05-28 12:28] VITALS: BP 237/83
[2017-05-28 16:20] VITALS: BP 195/64
[2017-05-29] VITALS: BP 174/52
[2017-05-29 05:21] LABS: BASOPHILS 0.3 % (0-2); EOSINOPHILS 2.6 % (0-7); HEMATOCRIT 28.6 % (36.0-48.0); HEMOGLOBIN 8.6 g/dL (12-16); IMMATURE GRANULOCYTES 0.2 % (0-5); LYMPHOCYTES 16.3 % (15-50); MCH 29.9 pg (26.0-34.0); MCHC 30.1 g/dL (31.0-37.0); MCV 99.3 fL (80.0-100.0); MEAN PLATELET VOLUME 11.4 fL (7.4-10.4); MONOCYTES 7.6 % (2-11); PLATELET COUNT 211 10x3/uL (130-400); RBC 2.88 10x6/uL (4.00-5.40); RDW 18.6 % (11.5-14.5); WBC 6.2 10x3/uL (4.8-10.8)
[2017-05-29 05:44] LABS: ANION GAP 13.6 mmol/L (8-16); CALCIUM 8.4 mg/dL (8.5-10.1); CREATININE - SERUM 1.5 mg/dL (0.6-1.3); POTASSIUM - SERUM 4.6 mmol/L (3.5-5.1)
[2017-05-29 06:00] VITALS: BP 179/66
[2017-05-29 08:42] VITALS: BP 103/64
[2017-05-29 11:49] VITALS: BP 190/73
[2017-05-29 13:50] LABS: CREATININE - URINE 9.5 mg/dL (30-125); POTASSIUM - URINE 15.7 MMOL/L (12.0-62.0); PRO/CRE RATIO URINE 11.5 mg/g; PROTEIN - URINE 109.3 mg/dL (0.0-11.9)
[2017-05-29 15:51] VITALS: BP 193/59
[2017-05-29 20:00] VITALS: BP 182/71
[2017-05-30 04:00] VITALS: BP 156/65
[2017-05-30 05:01] LABS: BASOPHILS 0.2 % (0-2); HEMATOCRIT 27.3 % (36.0-48.0); HEMOGLOBIN 8.4 g/dL (12-16); IMMATURE GRANULOCYTES 0.2 % (0-5); LYMPHOCYTES 14.6 % (15-50); MCH 29.8 pg (26.0-34.0); MCHC 30.8 g/dL (31.0-37.0); MEAN PLATELET VOLUME 11.7 fL (7.4-10.4); MONOCYTES 8.9 % (2-11); NEUTROPHILS 74.1 % (40-80); PLATELET COUNT 206 10x3/uL (130-400); RBC 2.82 10x6/uL (4.00-5.40); WBC 6.1 10x3/uL (4.8-10.8)
[2017-05-30 05:08] LABS: MCV 96.8 fL (80.0-100.0)
[2017-05-30 05:10] LABS: ANION GAP 12.9 mmol/L (8-16); CALCIUM 8.5 mg/dL (8.5-10.1); CARBON DIOXIDE 27.4 mmol/L (21.0-32.0); CREATININE - SERUM 1.5 mg/dL (0.6-1.3); POTASSIUM - SERUM 4.3 mmol/L (3.5-5.1)
[2017-05-30 05:12] LABS: HEMOGLOBIN A1C 6.8 % (4.8-6.0)
[2017-05-30 06:53] LABS: COMPLEMENT C4 18.7 mg/dL (17.4-52.2)
[2017-05-30 08:41] VITALS: BP 149/47
[2017-05-30 08:53] LABS: ERYTHROCYTE SEDIMENTATION RATE 62 mm/hr (0-30)
[2017-05-30 11:55] VITALS: BP 170/53
[2017-05-30 16:04] VITALS: BP 162/60
[2017-05-30 20:00] VITALS: BP 161/59
[2017-05-31] VITALS: BP 154/55
[2017-05-31 04:00] VITALS: BP 149/62
[2017-05-31 04:18] LABS: BASOPHILS 0.2 % (0-2); EOSINOPHILS 1.9 % (0-7); HEMATOCRIT 26.4 % (36.0-48.0); HEMOGLOBIN 8.1 g/dL (12-16); IMMATURE GRANULOCYTES 0.2 % (0-5); LYMPHOCYTES 15.3 % (15-50); MCH 29.8 pg (26.0-34.0); MCHC 30.7 g/dL (31.0-37.0); MCV 97.1 fL (80.0-100.0); MEAN PLATELET VOLUME 11.9 fL (7.4-10.4); MONOCYTES 10.3 % (2-11); NEUTROPHILS 72.1 % (40-80); PLATELET COUNT 190 10x3/uL (130-400); RBC 2.72 10x6/uL (4.00-5.40); RDW 17.8 % (11.5-14.5); WBC 5.8 10x3/uL (4.8-10.8)
[2017-05-31 04:41] LABS: ANION GAP 13.3 mmol/L (8-16); CALCIUM 7.8 mg/dL (8.5-10.1); CARBON DIOXIDE 27.2 mmol/L (21.0-32.0); CREATININE - SERUM 1.6 mg/dL (0.6-1.3); POTASSIUM - SERUM 4.5 mmol/L (3.5-5.1)
[2017-05-31 08:21] VITALS: BP 129/52
[2017-05-31 08:40] LABS: PROTEIN - URINE 246.7 mg/dL (0.0-11.9)
[2017-05-31 12:36] VITALS: BP 149/52
[2017-05-31 16:23] VITALS: BP 145/50
[2017-05-31 23:37] VITALS: BP 178/67
[2017-06-01 04:00] VITALS: BP 153/56
[2017-06-01 05:12] LABS: BASOPHILS 0.8 % (0-2); EOSINOPHILS 2.5 % (0-7); IMMATURE GRANULOCYTES 0.3 % (0-5); LYMPHOCYTES 19.6 % (15-50); MCH 29.7 pg (26.0-34.0); MCHC 30.8 g/dL (31.0-37.0); MCV 96.7 fL (80.0-100.0); MEAN PLATELET VOLUME 12.2 fL (7.4-10.4); MONOCYTES 13.1 % (2-11); NEUTROPHILS 63.7 % (40-80); PLATELET COUNT 184 10x3/uL (130-400); RBC 2.69 10x6/uL (4.00-5.40); RDW 17.2 % (11.5-14.5)
[2017-06-01 05:26] LABS: ANION GAP 11.2 mmol/L (8-16); CALCIUM 8.1 mg/dL (8.5-10.1); CREATININE - SERUM 1.7 mg/dL (0.6-1.3); POTASSIUM - SERUM 4.2 mmol/L (3.5-5.1)
[2017-06-01 08:04] VITALS: BP 175/49
[2017-06-01 11:58] VITALS: BP 166/42
[2017-06-01 16:24] VITALS: BP 170/51
[2017-06-01 20:00] VITALS: BP 191/63
[2017-06-02 04:00] VITALS: BP 164/63
[2017-06-02 08:09] LABS: ANTI-GLOMERULAR BASMENT MEMBRN 3 units (0-20)
[2017-06-02 09:41] VITALS: BP 146/45
[2017-06-02 10:12] LABS: ANA REFLEX - DIRECT Negative (Negative)
[2017-06-02 11:48] VITALS: BP 162/61
[2017-06-02 15:11] LABS: ANION GAP 13.4 mmol/L (8-16); CALCIUM 8.6 mg/dL (8.5-10.1); CREATININE - SERUM 1.5 mg/dL (0.6-1.3); POTASSIUM - SERUM 4.4 mmol/L (3.5-5.1)
[2017-06-02 15:53] VITALS: BP 174/65
[2017-06-02 17:11] LABS: ANCA - ANTIMYELOPEROXIDASE <9.0 U/mL (0.0-9.0); ANCA - ANTIPROTEINASE 3 <3.5 U/mL (0.0-3.5); ANCA - ATYPICAL <1:20 titer (Neg:<1:20); ANCA - CYTOPLASMIC <1:20 titer (Neg:<1:20); ANCA - PERINUCLEAR <1:20 titer (Neg:<1:20)
[2017-06-02 20:00] VITALS: BP 173/71
[2017-06-03 04:00] VITALS: BP 152/58
[2017-06-03 04:24] LABS: BASOPHILS 0.5 % (0-2); EOSINOPHILS 3.8 % (0-7); HEMATOCRIT 28.3 % (36.0-48.0); HEMOGLOBIN 8.7 g/dL (12-16); IMMATURE GRANULOCYTES 0.2 % (0-5); LYMPHOCYTES 21.9 % (15-50); MCH 29.4 pg (26.0-34.0); MCHC 30.7 g/dL (31.0-37.0); MCV 95.6 fL (80.0-100.0); MEAN PLATELET VOLUME 11.7 fL (7.4-10.4); MONOCYTES 10.3 % (2-11); NEUTROPHILS 63.3 % (40-80); PLATELET COUNT 203 10x3/uL (130-400); RBC 2.96 10x6/uL (4.00-5.40); RDW 16.5 % (11.5-14.5); WBC 4.2 10x3/uL (4.8-10.8)
[2017-06-03 04:40] LABS: ANION GAP 9.2 mmol/L (8-16); CALCIUM 8.8 mg/dL (8.5-10.1); CARBON DIOXIDE 33.8 mmol/L (21.0-32.0); CREATININE - SERUM 1.4 mg/dL (0.6-1.3)
[2017-06-03 08:20] LABS: SPE - ALBUMIN 2.6 g/dL (2.9-4.4); SPE - ALPHA-1 GLOBULIN 0.3 g/dL (0.0-0.4); SPE - ALPHA-2 GLOBULIN 0.9 g/dL (0.4-1.0); SPE - BETA GLOBULIN 0.8 g/dL (0.7-1.3); SPE - GAMMA GLOBULIN 0.7 g/dL (0.4-1.8); SPE - M-SPIKE Not Observed g/dL (Not Observed); SPE - TOTAL PROTEIN 5.3 g/dL (6.0-8.5)
[2017-06-03 08:30] VITALS: BP 173/43
[2017-06-03 15:40] VITALS: BP 144/49
[2017-06-03 20:00] VITALS: BP 134/59
[2017-06-04 04:00] VITALS: BP 158/454
[2017-06-04 08:28] VITALS: BP 137/57
[2017-06-04 10:19] LABS: UPE RAND - ALBUMIN 68.6 % (()); UPE RAND - ALPHA 1 GLOBULIN 5.4 % (()); UPE RAND - ALPHA 2 GLOBULIN 10.6 % (()); UPE RAND - BETA GLOBULIN 5.2 % (()); UPE RAND - GAMMA GLOBULIN 10.2 % (())
[2017-06-04 12:39] VITALS: BP 147/54
[2017-06-04 15:49] VITALS: BP 132/47
[2017-06-04 20:00] VITALS: BP 146/46
[2017-06-05 04:00] VITALS: BP 155/50
[2017-06-05 08:12] VITALS: BP 144/52
[2017-06-05 12:24] VITALS: BP 133/52
[2017-06-05 15:57] VITALS: BP 149/55
[2017-06-05 20:00] VITALS: BP 152/45
[2017-06-06] VITALS: BP 142/49
[2017-06-06 04:00] VITALS: BP 135/47
[2017-06-06 07:47] LABS: ALBUMIN 2.5 g/dL (3.4-5.0); ANION GAP 11.7 mmol/L (8-16); BILIRUBIN - TOTAL 0.2 mg/dL (0.2-1.3); CALCIUM 8.8 mg/dL (8.5-10.1); CREATININE - SERUM 1.7 mg/dL (0.6-1.3); MAGNESIUM - SERUM 1.7 mg/dL (1.8-2.4); POTASSIUM - SERUM 3.7 mmol/L (3.5-5.1); PROTEIN - SERUM 6.5 g/dL (6.4-8.2)
[2017-06-06 09:33] VITALS: BP 168/51
[2017-06-06 13:28] VITALS: BP 142/43
[2017-06-06 20:00] VITALS: BP 155/45
[2017-06-07] VITALS: BP 143/42
[2017-06-07 04:00] VITALS: BP 130/58
[2017-06-07 06:52] LABS: ANION GAP 10.9 mmol/L (8-16); CALCIUM 9.5 mg/dL (8.5-10.1); CARBON DIOXIDE 35.9 mmol/L (21.0-32.0); CREATININE - SERUM 1.6 mg/dL (0.6-1.3); POTASSIUM - SERUM 3.8 mmol/L (3.5-5.1)
[2017-06-07 07:41] VITALS: BP 138/41
[2017-06-07 12:27] VITALS: BP 136/41
[2017-06-07 15:54] VITALS: BP 142/49
[2017-06-07 20:00] VITALS: BP 138/50
[2017-06-08] VITALS: BP 143/44
[2017-06-08 04:00] VITALS: BP 119/50
[2017-06-08 07:53] VITALS: BP 144/41
[2017-06-08 10:33] LABS: ANION GAP 9.6 mmol/L (8-16); CALCIUM 8.9 mg/dL (8.5-10.1); CARBON DIOXIDE 34.5 mmol/L (21.0-32.0); CREATININE - SERUM 1.8 mg/dL (0.6-1.3); POTASSIUM - SERUM 4.1 mmol/L (3.5-5.1)
[2017-06-08 12:44] VITALS: BP 140/86
[2017-06-08 15:56] VITALS: BP 133/52
[2017-06-08 20:00] VITALS: BP 145/47
[2017-06-09 04:00] VITALS: BP 121/45
[2017-06-09 04:33] LABS: BASOPHILS 0.2 % (0-2); EOSINOPHILS 4.2 % (0-7); HEMATOCRIT 29.4 % (36.0-48.0); HEMOGLOBIN 9.1 g/dL (12-16); IMMATURE GRANULOCYTES 0.4 % (0-5); LYMPHOCYTES 24.1 % (15-50); MCH 28.9 pg (26.0-34.0); MCV 93.3 fL (80.0-100.0); MEAN PLATELET VOLUME 12.5 fL (7.4-10.4); MONOCYTES 8.2 % (2-11); NEUTROPHILS 62.9 % (40-80); PLATELET COUNT 230 10x3/uL (130-400); RBC 3.15 10x6/uL (4.00-5.40); RDW 15.8 % (11.5-14.5)
[2017-06-09 04:55] LABS: ANION GAP 8.8 mmol/L (8-16); CALCIUM 8.8 mg/dL (8.5-10.1); CARBON DIOXIDE 33.9 mmol/L (21.0-32.0); CREATININE - SERUM 1.8 mg/dL (0.6-1.3); POTASSIUM - SERUM 3.7 mmol/L (3.5-5.1)
[2017-06-09 09:06] VITALS: BP 96/43
[2017-06-09 13:22] VITALS: BP 148/64
[2017-06-09 17:29] VITALS: BP 142/55
[2017-06-09 20:00] VITALS: BP 97/44
[2017-06-10] VITALS: BP 129/49
[2017-06-10 04:00] VITALS: BP 128/46
[2017-06-10 05:59] LABS: ANION GAP 10.9 mmol/L (8-16); CALCIUM 8.7 mg/dL (8.5-10.1); CARBON DIOXIDE 33.1 mmol/L (21.0-32.0); CREATININE - SERUM 2.2 mg/dL (0.6-1.3)
[2017-06-10 06:51] LABS: HEMATOCRIT 28.1 % (36.0-48.0); LYMPHOCYTES 25.1 % (15-50); MCH 29.9 pg (26.0-34.0); MCV 93.4 fL (80.0-100.0); MEAN PLATELET VOLUME 12.9 fL (7.4-10.4); NEUTROPHILS 63.4 % (40-80); PLATELET COUNT 212 10x3/uL (130-400); RBC 3.01 10x6/uL (4.00-5.40); RDW 15.4 % (11.5-14.5); WBC 5.9 10x3/uL (4.8-10.8)
[2017-06-10 09:28] VITALS: BP 126/79
[2017-06-10 12:41] VITALS: BP 154/48
[2017-06-10 16:39] VITALS: BP 141/44
[2017-06-10 20:00] VITALS: BP 138/49
[2017-06-11] VITALS (7 sets, daily range): BP systolic 133–183; BP diastolic 42–53
[2017-06-11 05:58] LABS: BASOPHILS 0.3 % (0-2); EOSINOPHILS 2.5 % (0-7); HEMATOCRIT 28.9 % (36.0-48.0); HEMOGLOBIN 8.9 g/dL (12-16); IMMATURE GRANULOCYTES 0.6 % (0-5); LYMPHOCYTES 22.3 % (15-50); MCH 29.1 pg (26.0-34.0); MCHC 30.8 g/dL (31.0-37.0); MCV 94.4 fL (80.0-100.0); MEAN PLATELET VOLUME 13.2 fL (7.4-10.4); MONOCYTES 9.9 % (2-11); NEUTROPHILS 64.4 % (40-80); PLATELET COUNT 252 10x3/uL (130-400); RBC 3.06 10x6/uL (4.00-5.40); RDW 15.8 % (11.5-14.5); WBC 6.4 10x3/uL (4.8-10.8)
[2017-06-11 06:33] LABS: ANION GAP 13.7 mmol/L (8-16); CALCIUM 8.6 mg/dL (8.5-10.1); CARBON DIOXIDE 31.1 mmol/L (21.0-32.0); CREATININE - SERUM 1.9 mg/dL (0.6-1.3); POTASSIUM - SERUM 3.8 mmol/L (3.5-5.1)
[2017-06-12 04:00] VITALS: BP 126/41
[2017-06-12 04:45] LABS: BASOPHILS 0.3 % (0-2); EOSINOPHILS 3.4 % (0-7); HEMATOCRIT 28.4 % (36.0-48.0); HEMOGLOBIN 8.7 g/dL (12-16); LYMPHOCYTES 25.3 % (15-50); MCH 29.1 pg (26.0-34.0); MCHC 30.6 g/dL (31.0-37.0); MEAN PLATELET VOLUME 12.7 fL (7.4-10.4); PLATELET COUNT 231 10x3/uL (130-400); RBC 2.99 10x6/uL (4.00-5.40); RDW 15.9 % (11.5-14.5); WBC 5.8 10x3/uL (4.8-10.8)
[2017-06-12 06:00] LABS: ANION GAP 15.1 mmol/L (8-16); CALCIUM 8.5 mg/dL (8.5-10.1); CREATININE - SERUM 1.9 mg/dL (0.6-1.3); POTASSIUM - SERUM 4.1 mmol/L (3.5-5.1)
[2017-06-12 09:30] VITALS: BP 162/46
[2017-06-12 12:40] VITALS: BP 178/47
[2017-06-12 15:30] VITALS: BP 159/55
[2017-06-12 20:00] VITALS: BP 174/64
[2017-06-13 04:00] VITALS: BP 114/78
[2017-06-13 04:23] LABS: ANION GAP 11.6 mmol/L (8-16); CALCIUM 8.7 mg/dL (8.5-10.1); CARBON DIOXIDE 29.7 mmol/L (21.0-32.0); CREATININE - SERUM 2.1 mg/dL (0.6-1.3); POTASSIUM - SERUM 4.3 mmol/L (3.5-5.1)
[2017-06-13 04:25] LABS: BASOPHILS 0.6 % (0-2); EOSINOPHILS 2.9 % (0-7); HEMATOCRIT 27.7 % (36.0-48.0); HEMOGLOBIN 8.6 g/dL (12-16); IMMATURE GRANULOCYTES 1.1 % (0-5); MCH 29.5 pg (26.0-34.0); MCV 94.9 fL (80.0-100.0); MEAN PLATELET VOLUME 12.8 fL (7.4-10.4); MONOCYTES 10.3 % (2-11); NEUTROPHILS 63.1 % (40-80); PLATELET COUNT 222 10x3/uL (130-400); RBC 2.92 10x6/uL (4.00-5.40); RDW 15.7 % (11.5-14.5)
[2017-06-13 09:00] VITALS: BP 103/67
[2017-06-13 12:45] VITALS: BP 90/55
[2017-06-13] MEDS ORDERED: LOVENOX30 MG/0.3 SQ (13:10)
[2017-06-13] MEDS ORDERED: ALDACTONE25 MG PO (13:10)
[2017-06-13] MEDS ORDERED: LISINOPRIL10 MG PO (13:10)
[2017-06-13] MEDS ORDERED: LASIX20 MG PO (13:11)
[2017-06-13] MEDS ORDERED: LANTUS INSULIN10 ML SC (13:12)
[2017-06-13] MEDS ORDERED: SYNTHROID50 MCG PO (13:12)
[2017-06-13 16:41] VITALS: BP 112/47
== END 2017-06-13 18:30 | DRG 683 ==
LOC: UNDOADMIN 16:47 → D.MS 16:47 → D.SDCHOLD 16:47 → D.MS 05-30 15:50
PROVIDERS: Family Medicine; Internal Medicine; Internal Medicine Nephrology
DX: I12.9 Hypertensive chronic kidney disease with stage 1 through stage 4 chronic kidney disease, or unspecified chronic kidney disease (principal); N04.9 Nephrotic syndrome with unspecified morphologic changes; N17.9 Acute kidney failure, unspecified; I89.0 Lymphedema, not elsewhere classified; E11.22 Type 2 diabetes mellitus with diabetic chronic kidney disease; N18.3 Chronic kidney disease, stage 3 (moderate); R53.83 Other fatigue; E11.649 Type 2 diabetes mellitus with hypoglycemia without coma; I65.29 Occlusion and stenosis of unspecified carotid artery; E11.65 Type 2 diabetes mellitus with hyperglycemia; L89.312 Pressure ulcer of right buttock, stage 2; M19.90 Unspecified osteoarthritis, unspecified site; E11.42 Type 2 diabetes mellitus with diabetic polyneuropathy

== ENCOUNTER 2017-06-13 18:58 | Inpatient (IN) | payer OTHER ==
[~2017-06-13] VITALS: Ht 157.5 cm; Wt 84.3 kg
--- NOTE | ~2017-06-13 | DS ---
PATIENT:ADRIA KHALIL :47 MEDICAL RECORD: [id number] DISCHARGE SUMMARY ADMISSION DATE: 06/13/17 DISCHARGE DATE: 06/25/17 This is a discharge dated 06/25/2017 from inpatient rehabilitation. PRIMARY DIAGNOSIS: Decreased functional ability and ability to provide activities of daily living secondary to debility related to metabolic syndrome. SECONDARY DIAGNOSES: 1. Anasarca. 2. Lfvet-rt-jnbcegj diastolic congestive heart failure. 3. Chronic lymphedema. 4. Bilateral pleural effusions. 5. Peripheral vascular disease. 6. Anemia of chronic disease. 7. Chronic kidney disease stage III. 8. Obesity. 9. Bradycardia. 10. Hypothyroidism. 11. Uncontrolled diabetes. 12. Hyperlipidemia. 13. Hypertension. 14. Osteoarthritis. 15. Diabetic neuropathy. 16. Gout. HOSPITAL COURSE: Full H&P is located elsewhere on the chart on this 72-year-old female who was admitted to inpatient rehab for physical therapy and occupational therapy to improve gait, transfer skills, bed mobility, and activities of daily living to a modified independent level. She was evaluated by PT and OT and their plans of care were followed. She required halfway care for observation and assessment, medication administration. She was continued on appropriate home medications. Fingerstick blood sugars were monitored throughout her hospital stay with appropriate adjustment in medications as needed. Electrolytes were managed by protocol. She was transfused with 1 unit of packed red blood cells for an H&H of 8.1 and 26.1. She developed some bradycardia that resolved without intervention. She was cooperative with therapies, progressing towards goals. Case management was involved for discharge planning. She was considered stable for discharge on 06/25/2017. DISCHARGE MEDICATIONS: As per discharge medication reconciliation. DISCHARGE DISPOSITION: The patient is discharged home. She will continue her current diet and level of activity. She will follow up with primary care and consultants as directed. She declined home health. At least 30 minutes was spent in this discharge activity. TRANSINT:[id number] Voice Confirmation ID: [id number] DOCUMENT ID: [id number] Dictated By: EVAN MARTINS I have interviewed/examined the above patient and agree with these documented findings. DISCHARGE SUMMARY REPORT [id number] ADRIA KHALIL HALIE JARQUIN MD at 1511 at 1512 CC: [id number] DICTATION DATE: 07/27/17 1710 DRAPERY HEAD FORMER: 07/28/17 1151 DIS IN 06/25/17 [facility] [address] [place] [address]
--- NOTE | ~2017-06-13 | RHP ---
PATIENT: ADRIA KHALIL MEDICAL RECORD: [id number] ACCOUNT: [id number] LOCATION:[facility] N[place]1111 : 47 ADMISSION DATE: 06/13/17 REHABILITATION HISTORY AND PHYSICAL EXAMINATION POST ADMISSION PHYSICIAN EXAMINATION POST-ADMISSION PHYSICAL EXAMINATION AND HISTORY AND PHYSICAL DATE OF ADMISSION: 06/13/2017 ADMITTING DIAGNOSES: Metabolic syndrome with anasarca. HISTORY OF PRESENT ILLNESS: The patient is a 72-year-old female patient admitted to inpatient rehab with debility secondary to metabolic syndrome. She saw Dr. Baker about 2 weeks ago. She was having increased swelling. He increased her Lasix twice a day and she came back for labs, but she had gained 20 pounds. She states she is not drinking large amount of fluid. She was having increasing shortness of breath because of fluid buildup in her arms, legs, and abdomen. Chest x-ray showed interstitial disease with possible pneumonia in lower lobes and bilateral pleural fluid. She was admitted on 05/26/2017 for anasarca and 20-pound weight gain and just the last 2 weeks, she had pitting edema all the way up her legs, skin is tense, arms are the same. She had diminished breath sounds bilaterally. She got a past medical history of poorly controlled diabetes, carotid occlusive disease, essential hypertension, remote history of stroke, obesity, hyperlipidemia, osteoarthritis, and diabetic neuropathy. She has got anemia of chronic disease and stage III chronic kidney disease. Her workup included 24-hour urine. Urine greater than 4 grams of protein. Renal was consulted. She was placed on IV Bumex. She diuresed 51 pounds and now converted 20 mg of Lasix b.i.d. BUN and creatinine of 74 and 2.1. She will require daily weights on Friday, Friday and Friday. BMP and she needs rehab for strengthening and wound care per stage II right buttocks decubitus. Comorbidities in this patient include anasarca, nephrotic range proteinuria, bilateral pleural effusions, carotid stenosis, hyperkalemia, recent influenza A, hypertension, lymphedema, anemia, peripheral vascular disease, neuropathy, nephropathy, remote CVA, hyperlipidemia, osteoarthritis, gout, znjsl-tb-jfohybt diastolic congestive heart failure, acute cough, chronic kidney disease, iron deficiency anemia, osteoarthritis, and debility. PAST MEDICAL HISTORY: Significant for chronic lymphedema, poorly controlled diabetes, carotid occlusive disease, remote CVA, obesity, hyperlipidemia, osteoarthritis, and diabetic peripheral neuropathy. PAST SURGICAL HISTORY: Includes cataract surgery, abdominal hysterectomy, tonsillectomy, and bilateral carotid endarterectomies. ALLERGIES: No known drug allergies. CURRENT MEDICATIONS: Include nystatin powder to apply b.i.d., Meloxicam 7.5 mg daily, lisinopril 10 mg daily, Synthroid 50 mcg daily, Lantus 30 units q.a.m., Lopid 600 mg b.i.d., Flonase nasal spray b.i.d., ferrous sulfate 325 mg daily, Lovenox 30 mg subcutaneous daily, aspirin chewable 81 mg daily, amlodipine 5 mg daily, polyethylene glycol 17 grams in 8 ounces of water daily, Hytrin 2 mg b.i.d., Aldactone 12.5 mg b.i.d., Jessica 80 mg t.i.d. She is on Lantus 50 units HISTORY AND PHYSICAL [id number] ADRIA KHALIL in the evening and also Lasix 20 mg b.i.d., clonidine 0.2 mg q.8 hours p.r.n., brinzolamide eyedrops b.i.d. She is on Tessalon Perles 200 mg t.i.d., and Lipitor 80 mg at bedtime. HABITS: No current alcohol or tobacco use. FAMILY HISTORY: Noncontributory. SOCIAL HISTORY: The patient hopes to return back home and get back to her prior level of functioning. REVIEW OF SYSTEMS: GENERAL: Does complain of weakness and fatigue. HEENT: Denies cold, cough, or congestion. CARDIOVASCULAR: Denies any chest pain. LUNGS: Does complain of shortness of breath. PHYSICAL EXAMINATION: VITAL SIGNS: Stable, afebrile. GENERAL: A somewhat obese female, in no acute distress, alert upon exam. HEENT: Normocephalic and atraumatic. Mucosa moist. NECK: Supple. No lymphadenopathy. LUNGS: Clear in upper sandra. HEART: Regular rate and rhythm. ABDOMEN: Benign. EXTREMITIES: Does have noted edema. NEUROLOGIC: She does have decreased feeling in her extremities. LABORATORY DATA: White count 7.4, H&H of 8.4 and 27.2 and platelet count was noted to be 232. Her sodium is 136, potassium 4.8, BUN and creatinine of 76 and 2.0 and blood sugar was noted to be 230. ASSESSMENT: This is a 72-year-old female patient admitted to rehab with a working diagnosis of metabolic syndrome with anasarca. The patient has potential to make improvement. We instituted the following multidisciplinary therapies including to, but not limited to physical, occupational, respiratory, speech, nutritional services, prosthetics and orthotics. Given her complex medical condition, risk of further medical complications, rehabilitation services cannot be provided at a low level of care such as custodial facility. PLAN: 1. Admit to [facility] rehab for intensive inpatient therapy to include the following disciplines: A. Physical therapy to improve gait, all transfer skills and bed mobility to a modified independent level. B. Occupational therapy to improve activities of daily living to a modified independent level. C. Case management to assist with discharge planning and placement options. D. Nutrition to assist with nutritional needs. E. Rehabilitation nursing to assist in monitoring the patient's underlying medical conditions and to assist with any type of bowel or bladder management. 2. The patient's current medication will be continued. 3. The patient will be placed on standard fall precautions. 4. The patient's estimated length of stay is approximately 7-10 days. HISTORY AND PHYSICAL [id number] ADRIA KHALIL 5. Discuss this patient during care team staff meeting this week. TRANSINT:[id number] Voice Confirmation ID: [id number] DOCUMENT ID: [id number] ADITI notes whether there has been none or any medical/functional change since admission: - No change since pre-admission screen. ADITI attests patient continues to be appropriate for IRF: - Continues to be appropriate for Acute Inpatient Rehab. HALIE GOVEA MD at 1603 CC: [id number] DICTATION DATE: 06/14/17 1103 CUFF SLITTER: 06/14/17 1224 ADM IN [facility] [address] [place] [address]
[~2017-06-13 18:58] MED LIST changes: +ALDACTONE25 MG PO; +COMBIGAN OPHT DR5 ML LEFT EYE; +LASIX20 MG PO; +LOVENOX30 MG/0.3 SQ; +SYNTHROID50 MCG PO
[2017-06-13 20:00] VITALS: BP 127/62
[2017-06-13 22:27] VITALS: BP 127/62; BMI 34.3
[2017-06-14 05:42] LABS: BASOPHILS 0.3 % (0-2); EOSINOPHILS 2.8 % (0-7); HEMATOCRIT 27.2 % (36.0-48.0); HEMOGLOBIN 8.4 g/dL (12-16); IMMATURE GRANULOCYTES 1.2 % (0-5); LYMPHOCYTES 21.1 % (15-50); MCH 28.9 pg (26.0-34.0); MCHC 30.9 g/dL (31.0-37.0); MCV 93.5 fL (80.0-100.0); NEUTROPHILS 65.6 % (40-80); PLATELET COUNT 232 10x3/uL (130-400); RBC 2.91 10x6/uL (4.00-5.40); RDW 15.6 % (11.5-14.5); WBC 7.4 10x3/uL (4.8-10.8)
[2017-06-14 05:53] LABS: ANION GAP 11.9 mmol/L (8-16); CALCIUM 8.1 mg/dL (8.5-10.1); CARBON DIOXIDE 27.9 mmol/L (21.0-32.0); POTASSIUM - SERUM 4.8 mmol/L (3.5-5.1)
[2017-06-14 07:47] VITALS: BP 115/44
[2017-06-14 07:55] VITALS: BP 115/44
[2017-06-14 19:45] VITALS: BP 154/53
[2017-06-15 12:11] VITALS: BP 145/59
[2017-06-15 20:30] VITALS: BP 127/60
[2017-06-16 05:18] LABS: BASOPHILS 0.4 % (0-2); HEMOGLOBIN 8.6 g/dL (12-16); IMMATURE GRANULOCYTES 2.1 % (0-5); MCH 29.2 pg (26.0-34.0); MCHC 30.7 g/dL (31.0-37.0); MCV 94.9 fL (80.0-100.0); MEAN PLATELET VOLUME 13.3 fL (7.4-10.4); MONOCYTES 8.1 % (2-11); NEUTROPHILS 68.4 % (40-80); PLATELET COUNT 237 10x3/uL (130-400); RBC 2.95 10x6/uL (4.00-5.40); RDW 15.8 % (11.5-14.5); WBC 7.6 10x3/uL (4.8-10.8)
[2017-06-16 06:42] LABS: ANION GAP 17.5 mmol/L (8-16); CALCIUM 9.1 mg/dL (8.5-10.1); CARBON DIOXIDE 24.3 mmol/L (21.0-32.0); CREATININE - SERUM 1.9 mg/dL (0.6-1.3); POTASSIUM - SERUM 4.8 mmol/L (3.5-5.1)
[2017-06-16 09:52] VITALS: BP 107/56
[2017-06-16 19:00] VITALS: BP 133/66
[2017-06-17 10:35] VITALS: BP 113/53
[2017-06-17 13:11] VITALS: Ht 157.5 cm; Wt 84.3 kg
[2017-06-18 01:47] VITALS: BP 107/66
[2017-06-18 05:44] LABS: BASOPHILS 0.3 % (0-2); EOSINOPHILS 2.7 % (0-7); HEMATOCRIT 26.1 % (36.0-48.0); HEMOGLOBIN 8.1 g/dL (12-16); IMMATURE GRANULOCYTES 1.5 % (0-5); LYMPHOCYTES 23.3 % (15-50); MCH 28.9 pg (26.0-34.0); MCV 93.2 fL (80.0-100.0); MEAN PLATELET VOLUME 12.5 fL (7.4-10.4); NEUTROPHILS 63.2 % (40-80); PLATELET COUNT 217 10x3/uL (130-400); RDW 16.1 % (11.5-14.5); WBC 6.6 10x3/uL (4.8-10.8)
[2017-06-18 06:00] LABS: ANION GAP 15.1 mmol/L (8-16); CALCIUM 8.3 mg/dL (8.5-10.1); CARBON DIOXIDE 26.4 mmol/L (21.0-32.0); CREATININE - SERUM 1.8 mg/dL (0.6-1.3); POTASSIUM - SERUM 4.5 mmol/L (3.5-5.1)
[2017-06-18 07:49] VITALS: BP 112/47
[2017-06-18 19:55] VITALS: BP 138/81
[2017-06-19 07:42] VITALS: BP 129/41
[2017-06-19 19:55] VITALS: BP 163/48
[2017-06-20 07:05] LABS: BASOPHILS 0.5 % (0-2); HEMATOCRIT 31.3 % (36.0-48.0); HEMOGLOBIN 9.9 g/dL (12-16); IMMATURE GRANULOCYTES 0.8 % (0-5); LYMPHOCYTES 23.5 % (15-50); MCH 29.8 pg (26.0-34.0); MCHC 31.6 g/dL (31.0-37.0); MCV 94.3 fL (80.0-100.0); MEAN PLATELET VOLUME 13.4 fL (7.4-10.4); MONOCYTES 9.9 % (2-11); NEUTROPHILS 62.3 % (40-80); PLATELET COUNT 197 10x3/uL (130-400); RBC 3.32 10x6/uL (4.00-5.40); RDW 15.9 % (11.5-14.5); WBC 6.6 10x3/uL (4.8-10.8)
[2017-06-20 07:08] LABS: ANION GAP 14.9 mmol/L (8-16); CALCIUM 9.3 mg/dL (8.5-10.1); CARBON DIOXIDE 24.7 mmol/L (21.0-32.0); CREATININE - SERUM 1.9 mg/dL (0.6-1.3); POTASSIUM - SERUM 4.6 mmol/L (3.5-5.1)
[2017-06-20 09:10] VITALS: BP 125/63
[2017-06-20 22:13] VITALS: BP 158/63
[2017-06-21 08:32] VITALS: BP 112/58
[2017-06-21 13:29] VITALS: BP 148/50
[2017-06-21 20:30] VITALS: BP 151/64
[2017-06-22 07:56] VITALS: BP 126/45
[2017-06-22 21:10] VITALS: BP 121/61
[2017-06-23 06:33] LABS: BASOPHILS 0.4 % (0-2); EOSINOPHILS 3.7 % (0-7); HEMATOCRIT 29.7 % (36.0-48.0); HEMOGLOBIN 9.3 g/dL (12-16); IMMATURE GRANULOCYTES 0.6 % (0-5); LYMPHOCYTES 27.3 % (15-50); MCH 29.4 pg (26.0-34.0); MCHC 31.3 g/dL (31.0-37.0); MEAN PLATELET VOLUME 13.1 fL (7.4-10.4); MONOCYTES 10.8 % (2-11); NEUTROPHILS 57.2 % (40-80); PLATELET COUNT 168 10x3/uL (130-400); RBC 3.16 10x6/uL (4.00-5.40); RDW 15.9 % (11.5-14.5); WBC 5.4 10x3/uL (4.8-10.8)
[2017-06-23 06:37] LABS: ANION GAP 17.1 mmol/L (8-16); CALCIUM 8.1 mg/dL (8.5-10.1); CARBON DIOXIDE 23.9 mmol/L (21.0-32.0); CREATININE - SERUM 1.9 mg/dL (0.6-1.3)
[2017-06-23 07:45] VITALS: BP 142/47
[2017-06-23 20:00] VITALS: BP 146/47
[2017-06-24 08:48] VITALS: BP 116/54
[2017-06-24 20:05] VITALS: BP 192/67
[2017-06-25 06:27] LABS: BASOPHILS 0.5 % (0-2); EOSINOPHILS 5.1 % (0-7); HEMATOCRIT 31.7 % (36.0-48.0); IMMATURE GRANULOCYTES 0.6 % (0-5); LYMPHOCYTES 23.6 % (15-50); MCH 29.8 pg (26.0-34.0); MCHC 31.5 g/dL (31.0-37.0); MCV 94.3 fL (80.0-100.0); MEAN PLATELET VOLUME 12.4 fL (7.4-10.4); MONOCYTES 7.7 % (2-11); NEUTROPHILS 62.5 % (40-80); PLATELET COUNT 166 10x3/uL (130-400); RBC 3.36 10x6/uL (4.00-5.40); RDW 15.8 % (11.5-14.5); WBC 6.5 10x3/uL (4.8-10.8)
[2017-06-25 06:39] LABS: ANION GAP 16.8 mmol/L (8-16); CALCIUM 8.9 mg/dL (8.5-10.1); CARBON DIOXIDE 24.8 mmol/L (21.0-32.0); POTASSIUM - SERUM 4.6 mmol/L (3.5-5.1)
[2017-06-25 09:07] VITALS: BP 135/50
== END 2017-06-25 12:18 | disposition home or self-care (01) | DRG 642 ==
LOC: D.REHAB 18:58
PROVIDERS: Emergency Medicine
DX: E88.81 Metabolic syndrome and other insulin resistance (principal); I50.33 Acute on chronic diastolic (congestive) heart failure; I13.0 Hypertensive heart and chronic kidney disease with heart failure and stage 1 through stage 4 chronic kidney disease, or unspecified chronic kidney disease; J90 Pleural effusion, not elsewhere classified; R53.81 Other malaise; R60.1 Generalized edema; N18.3 Chronic kidney disease, stage 3 (moderate); E78.5 Hyperlipidemia, unspecified; R80.8 Other proteinuria; I89.0 Lymphedema, not elsewhere classified; I73.9 Peripheral vascular disease, unspecified; D50.9 Iron deficiency anemia, unspecified; M19.90 Unspecified osteoarthritis, unspecified site; E87.5 Hyperkalemia; E11.40 Type 2 diabetes mellitus with diabetic neuropathy, unspecified

== ENCOUNTER 2018-01-18 14:15 | Inpatient (IN) | payer OTHER ==
[~2018-01-18] VITALS: Ht 157.5 cm; Wt 80.0 kg
--- NOTE | ~2018-01-18 | EC ---
PATIENT:ADRIA KHALIL DATE OF SERVICE: 01/18/18 SEX: F MEDICAL RECORD: [id number] DATE OF : 47 LOCATION:D[facility] [place] AGE OF PATIENT: 72 ADMISSION DATE: 01/18/18 REFERRING PHYSICIAN: INTERPRETING PHYSICIAN: KARLOS MESA MD ECHOCARDIOGRAM REPORT ECHO CHARGES 4 ECHO COMPLETE Date: 01/20/18 CLINICAL DIAGNOSIS: HYPERTENSION, PULMONARY EDEMA ECHOCARDIOGRAPHIC MEASUREMENTS (adult normal given) AC root (d.<3.7cm) 3.6 cm LV Septum d (<1.2 cm> 1.1 cm Valve Excursion 1.6 cm LV Septum (systole) 1.3 cm Left Atria (s.<4.0cm> 3.8 cm LVPW d(<1.2cm) 1.4 cm RV (d.<2.3cm) 3.2 cm LVPW (sytole) 1.6 cm LV diastole(<5.6CM) 4.2 cm MV E-F(>70mm/sec) cm LV systole 2.9 cm LVOT Diameter 1.7 cm MV exc.(>10mm) 1.2 cm Est.ejection fraction (50-75%) % DOPPLER: LVIT cm/sec A 155 cm/sec E 133 cm/sec LA cm/sec RVSP 26 mmHg LVOT 154 cm/sec AOP1/2T m/s Asc. Ao 249 cm/sec RVOT 132 cm/sec RA cm/sec PA 174 cm/sec AV Gradient Peak 24.84mmHg AV Mean 15.50mmHg AV Area 1.8 cm MV Gradient Peak 10.88mmHg MV Mean 4.86 mmHg MV Area cm COMMENTS: Steaming Machine Operator: Donna PIERSON Factory Lay Out Engineer: 1 Dr. [place] TAPE# PACS Pericardial Effusion N DATE OF SERVICE: 01/20/2018 FINDINGS: 1. Left ventricular chamber size is within normal limits. Left ventricular systolic function is normal. Overall ejection fraction estimated at 60%. 2. Left atrium, right atrium, and right ventricle chamber sizes are within normal limits. 3. Valvular structures: Aortic valve demonstrates mild calcific aortic stenosis, valve area calculates to 1.8 cm-squared and has a gradient of 25 mm across the valve. The remaining valvular structures have normal structure and ECHOCARDIOGRAM REPORT [id number] SIMRAN,ADRIA AMARIS motion. 4. Doppler interrogation elsewise reveals only trace mitral regurgitation, mild tricuspid regurgitation, no other valvular insufficiency or stenosis and pulmonary systolic pressure is normal estimated at 26 mmHg. 5. No evidence of pericardial effusion or left ventricular thrombus. TRANSINT:[id number] Voice Confirmation ID: [id number] DOCUMENT ID: [id number] KARLOS MESA MD at 0923 CC: [id number] DICTATION DATE: 01/20/187 NEPHROLOGIST: 01/20/18 1246 DIS IN 01/24/18 [facility] [address] [place] [address]
[2018-01-18 15:12] LABS: BASOPHILS 0.2 % (0-2); EOSINOPHILS 0 % (0-7); HEMATOCRIT 31.9 % (36.0-48.0); HEMOGLOBIN 10.9 g/dL (12-16); IMMATURE GRANULOCYTES 0.2 % (0-5); LYMPHOCYTES 11.5 % (15-50); MCH 31.6 pg (26.0-34.0); MCHC 34.2 g/dL (31.0-37.0); MCV 92.5 fL (80.0-100.0); MEAN PLATELET VOLUME 12.7 fL (7.4-10.4); NEUTROPHILS 79.1 % (40-80); PLATELET COUNT 149 10x3/uL (130-400); RBC 3.45 10x6/uL (4.00-5.40); RDW 12.9 % (11.5-14.5)
[2018-01-18 15:14] LABS: WBC 12.2 10x3/uL (4.8-10.8)
[2018-01-18 16:27] LABS: ALBUMIN 2.9 g/dL (3.4-5.0); ALKALINE PHOSPHATASE 70 U/L (46-116); ALT (SGPT) 17 U/L (10-68); BILIRUBIN - TOTAL 0.32 mg/dL (0.2-1.3); CALC OSMOLALITY 298 mosm/kg (275-300); CALCIUM 8.4 mg/dL (8.5-10.1); CARBON DIOXIDE 22.6 mmol/L (21.0-32.0); CHLORIDE - SERUM 97 mmol/L (98-107); CREATININE - SERUM 2.6 mg/dL (0.6-1.3); LIPASE 74 U/L (73-393); MAGNESIUM - SERUM 1.5 mg/dL (1.8-2.4); POTASSIUM - SERUM 3.7 mmol/L (3.5-5.1); PROTEIN - SERUM 7.5 g/dL (6.4-8.2); SODIUM 137 mmol/L (136-145); UREA NITROGEN 56 mg/dL (7-18); eGFR NON AFRICAN AMERICAN 19 mL/min (90-120)
[2018-01-18 16:28] LABS: GLUCOSE 257 mg/dL (74-106)
[2018-01-18 16:31] LABS: APPEARANCE CLEAR (CLEAR); BILIRUBIN NEGATIVE (NEGATIVE); COLOR YELLOW (YELLOW); GLUCOSE 50 mg/dL (NEGATIVE); KETONE NEGATIVE (NEGATIVE); NITRITE NEGATIVE (NEGATIVE); PROTEIN 2+ mg/dL (NEGATIVE); UROBILINOGEN NORMAL (NORMAL)
[2018-01-18 16:32] LABS: BACTERIA FEW /hpf (NONE SEEN); EPITHELIAL CELLS 0-5 /hpf (0-5); RED CELLS - URINE 0-5 /hpf (0-5); WHITE CELLS - URINE 0-5 /hpf (0-5)
[2018-01-18 16:33] LABS: GRANULAR CAST 0-5 /lpf (NONE SEEN)
[2018-01-18 16:48] VITALS: BP 175/56
[2018-01-18 17:06] LABS: KETONE - SERUM SMALL mg/dL (NEGATIVE)
[2018-01-18 17:38] VITALS: BP 169/60
[2018-01-18 18:41] VITALS: BP 169/67
[2018-01-19 00:48] VITALS: BP 165/66; BMI 32.2
[2018-01-19] MEDS ORDERED: SINGULAIR10 MG PO (01:02)
[2018-01-19 04:36] VITALS: BP 143/68
[2018-01-19 08:08] VITALS: BP 189/57
[2018-01-19 12:12] VITALS: BP 132/55
[2018-01-19 14:24] VITALS: Ht 157.5 cm; Wt 80.0 kg
[2018-01-19 16:30] VITALS: BP 135/48
[2018-01-19 20:00] VITALS: BP 148/52
[2018-01-19] MEDS ORDERED: VYZULTA LEFT EYE (22:29)
[2018-01-20] VITALS: BP 131/45
[2018-01-20 04:00] VITALS: BP 165/60
[2018-01-20 04:30] LABS: BASOPHILS 0.2 % (0-2); EOSINOPHILS 0.6 % (0-7); HEMATOCRIT 28.5 % (36.0-48.0); HEMOGLOBIN 9.6 g/dL (12-16); IMMATURE GRANULOCYTES 0.6 % (0-5); LYMPHOCYTES 10.1 % (15-50); MCH 31.2 pg (26.0-34.0); MCHC 33.7 g/dL (31.0-37.0); MCV 92.5 fL (80.0-100.0); MONOCYTES 8.9 % (2-11); NEUTROPHILS 79.6 % (40-80); PLATELET COUNT 166 10x3/uL (130-400); RBC 3.08 10x6/uL (4.00-5.40); WBC 12.5 10x3/uL (4.8-10.8)
[2018-01-20 05:09] LABS: ALBUMIN 2.3 g/dL (3.4-5.0); ALKALINE PHOSPHATASE 67 U/L (46-116); BILIRUBIN - TOTAL 0.19 mg/dL (0.2-1.3); CALCIUM 8.5 mg/dL (8.5-10.1); CARBON DIOXIDE 27.9 mmol/L (21.0-32.0); CHLORIDE - SERUM 103 mmol/L (98-107); CREATINE KINASE 653 UL (21-215); CREATININE - SERUM 2.5 mg/dL (0.6-1.3); PHOSPHOROUS 2.9 mg/dL (2.5-4.9); POTASSIUM - SERUM 3.3 mmol/L (3.5-5.1); PROTEIN - SERUM 6.6 g/dL (6.4-8.2); SODIUM 140 mmol/L (136-145); UREA NITROGEN 63 mg/dL (7-18); eGFR NON AFRICAN AMERICAN 20 mL/min (90-120)
[2018-01-20 05:11] LABS: CALC OSMOLALITY 298 mosm/kg (275-300); GLUCOSE 136 mg/dL (74-106)
[2018-01-20 05:12] LABS: ALT (SGPT) 25 U/L (10-68); CKMB 3.7 U/L (0.0-3.6)
[2018-01-20 09:39] VITALS: BP 185/62
[2018-01-20 12:48] VITALS: BP 120/51
[2018-01-20 16:48] VITALS: BP 118/89
[2018-01-20 20:00] VITALS: BP 113/42
[2018-01-21] VITALS (7 sets, daily range): BP systolic 119–164; BP diastolic 39–70
[2018-01-21 07:35] LABS: BASOPHILS 0.2 % (0-2); EOSINOPHILS 1.6 % (0-7); HEMATOCRIT 27.4 % (36.0-48.0); HEMOGLOBIN 9.3 g/dL (12-16); IMMATURE GRANULOCYTES 1.8 % (0-5); LYMPHOCYTES 11.3 % (15-50); MCHC 33.9 g/dL (31.0-37.0); MCV 91.3 fL (80.0-100.0); MEAN PLATELET VOLUME 13.2 fL (7.4-10.4); MONOCYTES 10.1 % (2-11); PLATELET COUNT 188 10x3/uL (130-400); RDW 13.2 % (11.5-14.5); WBC 12.6 10x3/uL (4.8-10.8)
[2018-01-21 08:04] LABS: ALBUMIN 2.1 g/dL (3.4-5.0); ANION GAP 14.3 mmol/L (8-16); BILIRUBIN - TOTAL 0.21 mg/dL (0.2-1.3); CALCIUM 8.4 mg/dL (8.5-10.1); CARBON DIOXIDE 24.9 mmol/L (21.0-32.0); CREATININE - SERUM 2.4 mg/dL (0.6-1.3); POTASSIUM - SERUM 3.2 mmol/L (3.5-5.1); PROTEIN - SERUM 6.7 g/dL (6.4-8.2)
[2018-01-22 06:02] LABS: BASOPHILS 0.3 % (0-2); HEMATOCRIT 25.3 % (36.0-48.0); HEMOGLOBIN 8.6 g/dL (12-16); IMMATURE GRANULOCYTES 1.1 % (0-5); LYMPHOCYTES 13.2 % (15-50); MCV 91.3 fL (80.0-100.0); MEAN PLATELET VOLUME 12.7 fL (7.4-10.4); MONOCYTES 9.1 % (2-11); NEUTROPHILS 74.3 % (40-80); PLATELET COUNT 197 10x3/uL (130-400); RBC 2.77 10x6/uL (4.00-5.40); RDW 13.4 % (11.5-14.5); WBC 9.7 10x3/uL (4.8-10.8)
[2018-01-22 06:18] VITALS: BP 97/64
[2018-01-22 06:33] LABS: ALBUMIN 1.9 g/dL (3.4-5.0); ANION GAP 12.8 mmol/L (8-16); BILIRUBIN - TOTAL 0.18 mg/dL (0.2-1.3); CALCIUM 8.6 mg/dL (8.5-10.1); CARBON DIOXIDE 25.9 mmol/L (21.0-32.0); CREATININE - SERUM 2.5 mg/dL (0.6-1.3); PROTEIN - SERUM 6.4 g/dL (6.4-8.2)
[2018-01-22 06:38] LABS: POTASSIUM - SERUM 3.7 mmol/L (3.5-5.1)
[2018-01-22 08:00] VITALS: BP 121/71
[2018-01-22 12:00] VITALS: BP 146/44
[2018-01-22 18:19] VITALS: BP 157/51
[2018-01-22 21:45] VITALS: BP 148/47
[2018-01-23 05:09] VITALS: BP 181/59
[2018-01-23 06:09] LABS: BASOPHILS 0.2 % (0-2); EOSINOPHILS 2.1 % (0-7); HEMATOCRIT 26.9 % (36.0-48.0); HEMOGLOBIN 9.1 g/dL (12-16); LYMPHOCYTES 11.1 % (15-50); MCHC 33.8 g/dL (31.0-37.0); MCV 91.5 fL (80.0-100.0); MEAN PLATELET VOLUME 12.1 fL (7.4-10.4); MONOCYTES 8.6 % (2-11); RBC 2.94 10x6/uL (4.00-5.40); RDW 13.5 % (11.5-14.5); WBC 10.7 10x3/uL (4.8-10.8)
[2018-01-23 06:25] LABS: PLATELET COUNT 256 10x3/uL (130-400)
[2018-01-23 06:37] LABS: ANION GAP 16.5 mmol/L (8-16); BILIRUBIN - TOTAL 0.24 mg/dL (0.2-1.3); CALCIUM 8.8 mg/dL (8.5-10.1); CARBON DIOXIDE 23.1 mmol/L (21.0-32.0); CREATININE - SERUM 2.4 mg/dL (0.6-1.3); POTASSIUM - SERUM 3.6 mmol/L (3.5-5.1); PROTEIN - SERUM 6.9 g/dL (6.4-8.2)
[2018-01-23 08:14] VITALS: BP 190/54
[2018-01-23 11:56] VITALS: BP 181/58
[2018-01-23 20:00] VITALS: BP 171/70
[2018-01-24 04:00] VITALS: BP 197/65
[2018-01-24 04:59] LABS: BASOPHILS 0.3 % (0-2); EOSINOPHILS 1.7 % (0-7); HEMATOCRIT 28.9 % (36.0-48.0); HEMOGLOBIN 9.7 g/dL (12-16); IMMATURE GRANULOCYTES 2.9 % (0-5); LYMPHOCYTES 8.9 % (15-50); MCH 30.7 pg (26.0-34.0); MCHC 33.6 g/dL (31.0-37.0); MCV 91.5 fL (80.0-100.0); MEAN PLATELET VOLUME 10.8 fL (7.4-10.4); MONOCYTES 8.9 % (2-11); NEUTROPHILS 77.3 % (40-80); PLATELET COUNT 299 10x3/uL (130-400); RBC 3.16 10x6/uL (4.00-5.40); RDW 13.6 % (11.5-14.5); WBC 11.9 10x3/uL (4.8-10.8)
[2018-01-24 05:20] LABS: ALBUMIN 1.9 g/dL (3.4-5.0); ANION GAP 15.6 mmol/L (8-16); BILIRUBIN - TOTAL 0.26 mg/dL (0.2-1.3); CALCIUM 8.9 mg/dL (8.5-10.1); CARBON DIOXIDE 22.2 mmol/L (21.0-32.0); CREATININE - SERUM 1.9 mg/dL (0.6-1.3); POTASSIUM - SERUM 3.8 mmol/L (3.5-5.1); PROTEIN - SERUM 6.8 g/dL (6.4-8.2)
[2018-01-24] MEDS ORDERED: LEVAQUIN250 MG PO (10:57)
== END 2018-01-24 14:54 | disposition home or self-care (01) | DRG 193 ==
LOC: D.ER 14:15 → D.MS 18:17 → D.EDHOLD 18:17 → D.MS 18:32
PROVIDERS: Emergency Medicine; Family Medicine; Internal Medicine Nephrology
DX: J18.1 Lobar pneumonia, unspecified organism (principal); J81.0 Acute pulmonary edema; J96.90 Respiratory failure, unspecified, unspecified whether with hypoxia or hypercapnia; N17.9 Acute kidney failure, unspecified; J44.0 Chronic obstructive pulmonary disease with (acute) lower respiratory infection; E11.22 Type 2 diabetes mellitus with diabetic chronic kidney disease; I12.9 Hypertensive chronic kidney disease with stage 1 through stage 4 chronic kidney disease, or unspecified chronic kidney disease; N18.3 Chronic kidney disease, stage 3 (moderate); Z79.4 Long term (current) use of insulin; M19.90 Unspecified osteoarthritis, unspecified site; E78.5 Hyperlipidemia, unspecified; J44.9 Chronic obstructive pulmonary disease, unspecified; R80.9 Proteinuria, unspecified; E87.6 Hypokalemia; D64.9 Anemia, unspecified

== ENCOUNTER → 2018-04-01 09:55 | Outpatient (CLI) | payer OTHER ==
[2018-01-19 14:24] VITALS: BMI 32.2
[~2018-04-01 09:55] MED LIST changes: +LEVAQUIN250 MG PO; +VYZULTA LEFT EYE
== END | disposition home or self-care (01) ==
LOC: D.US 03-16 11:30
DX: I65.23 Occlusion and stenosis of bilateral carotid arteries (principal)

== ENCOUNTER → 2018-04-16 18:06 | Outpatient (CLI) | payer OTHER ==
[2018-01-19 14:24] VITALS: BMI 32.2
== END | disposition home or self-care (01) ==
LOC: D.MAMMO 15:30
DX: Z12.31 Encounter for screening mammogram for malignant neoplasm of breast (principal)

== ENCOUNTER → 2018-11-03 12:35 | Outpatient (CLI) | payer OTHER ==
[2018-01-19 14:24] VITALS: BMI 32.2
== END | disposition home or self-care (01) ==
LOC: D.US 10-27 10:00
PROVIDERS: ATTEND Internal Medicine Cardiovascular Disease
DX: I65.23 Occlusion and stenosis of bilateral carotid arteries (principal)

== ENCOUNTER → 2019-04-08 13:00 | Outpatient (CLI) | payer OTHER ==
[2018-01-19 14:24] VITALS: BMI 32.2
== END | disposition home or self-care (01) ==
LOC: D.MAMMO 13:00
PROVIDERS: ATTEND Family Medicine
DX: Z12.31 Encounter for screening mammogram for malignant neoplasm of breast (principal)

== ENCOUNTER → 2019-08-25 07:56 | Outpatient (CLI) | payer OTHER ==
[2018-01-19 14:24] VITALS: BMI 32.2
== END | disposition home or self-care (01) ==
LOC: D.US 07:56
PROVIDERS: ATTEND Family Medicine
DX: R10.10 Upper abdominal pain, unspecified (principal)

== ENCOUNTER 2019-10-05 06:03 | Day surgery (SDC) | payer OTHER ==
[~2019-10-05] VITALS: Ht 157.5 cm; Wt 94.3 kg
--- NOTE | ~2019-10-05 | OP ---
PATIENT NAME: ADRIA KHALIL MEDICAL RECORD: [id number] :47 LOCATION:D.OPS ADMISSION DATE: SURGEON: MUNIR ZUÑIGA MD DATE OF OPERATION: 10/05/2019 PREOPERATIVE DIAGNOSES: 1. Gallbladder polyps versus gallstones. 2. Hypertension. 3. Diabetes mellitus. 4. Hyperlipidemia. 5. Chronic kidney disease. 6. History of cerebrovascular accident. 7. Anasarca. POSTOPERATIVE DIAGNOSES: 1. Gallbladder polyps versus gallstones. 2. Hypertension. 3. Diabetes mellitus. 4. Hyperlipidemia. 5. Chronic kidney disease. 6. History of cerebrovascular accident. 7. Anasarca. PROCEDURE: Laparoscopic cholecystectomy. SURGEON: Munir Zuñiga MD REPORT OF PROCEDURE: The patient's abdomen was prepped and draped in sterile fashion. A cutdown was made on the superior aspect of the umbilicus, 0 Vicryls were placed in the fascia bilaterally and the fascia was incised with 15-blade. I then bluntly entered the peritoneal cavity and placed a 12-mm Alexandro port. Under direct visualization, a 5 mm trocar was placed in the epigastrium and 2 more 5-mm trocars were placed in the right subcostal region. The patient's gallbladder was distended, but appeared to be normal with no signs of inflammatory changes. We aspirated the gallbladder and removed the bilious fluid. This made manipulation of the gallbladder much easier. The van of the gallbladder showed signs of edema, but most of the tissues that we encountered were edematous. The patient's liver was quite swollen, had extended down and actually wrapped around the gallbladder to some extent. The patient's inferior aspect of the rib cage was actually jutting inward and made it difficult for manipulation because there was not much room in the patient's right upper quadrant. We were able to elevate the gallbladder. The cystic duct and cystic artery were kind of buried back into the liver. I was able to dissect out the cystic artery and can see what appeared to be the cystic duct, but I cannot see the tissues clearly to get a critical view of safety. So, for this reason, I performed a dome down technique by taking down the fundus of the gallbladder, followed by the body and infundibulum. At this point, there was a piece of tissue that was extending from the posterior wall of the gallbladder down to the fatty tissue near Calot's triangle. I went ahead and inspected this closely for quite some time and did not feel that this was any sort of tubular structure. I went ahead and clipped it proximally and distally and ligated in case it was vascular. Upon doing this, I did not see any evidence of a tubular structure. This left us with just the cystic artery and cystic duct and these were clipped proximally and distally and ligated in standard fashion. The gallbladder was then placed into the right upper quadrant. While we irrigated out the right OPERATIVE REPORT [id number] ADRIA KHALIL AMARIS upper quadrant, I saw no evidence of any bleeding or bile leakage other than what was coming from the liver bed. The liver bed was then treated with electrocautery to stop any bleeding. The ports and insufflation were then removed and the gallbladder was taken out through the umbilicus. I inspected the gallbladder and that section of tissue that was jutting posteriorly appear to be just connective tissue with no signs of any tubular structures. The midline fascia was closed with interrupted 0 Vicryls times 3. The wounds were then irrigated out with normal saline and infused with 10 mL of 0.25% Marcaine with epinephrine. The skin incisions were all closed with subcutaneous 5-0 Monocryl and dressed appropriately. COMPLICATIONS: None. CONDITION: Stable. ANESTHESIA: General endotracheal and local. BLOOD LOSS: 30 mL. TRANSINT:[id number] Voice Confirmation ID: [id number] DOCUMENT ID: [id number] MUNIR ZUÑIGA MD CC: ELIAS CROFT [id number] DICTATION DATE: 10/05/19 1016 LINGO CLEANER: 10/05/19 1616 [facility] 10/05/19 [facility] [address] [place] [address]
[~2019-10-05 06:03] MED LIST changes: +COMBIGAN OPHT DR5 ML; +HUMALOG 30100 UNITS/; +LANTUS INS100 UNITS/; +OMEPRAZOLE40 MG; +TERAZOSIN HCL2 MG; +ZYRTEC10 MG
[2019-10-05 06:42] LABS: BASOPHILS 0.6 % (0-2); EOSINOPHILS 3.8 % (0-7); HEMATOCRIT 27.3 % (36.0-48.0); HEMOGLOBIN 8.1 g/dL (12-16); IMMATURE GRANULOCYTES 0.2 % (0-5); LYMPHOCYTES 21.1 % (15-50); MCH 27.3 pg (26.0-34.0); MCHC 29.7 g/dL (31.0-37.0); MCV 91.9 fL (80.0-100.0); MEAN PLATELET VOLUME 11.6 fL (7.4-10.4); NEUTROPHILS 63.3 % (40-80); RBC 2.97 10x6/uL (4.00-5.40); RDW 16.5 % (11.5-14.5)
[2019-10-05 06:44] LABS: CALCIUM 8.7 mg/dL (8.5-10.1); CARBON DIOXIDE 27.5 mmol/L (21.0-32.0); CREATININE - SERUM 2.6 mg/dL (0.6-1.3); POTASSIUM - SERUM 4.5 mmol/L (3.5-5.1)
[2019-10-05 06:46] LABS: PLATELET COUNT 213 10x3/uL (130-400)
[2019-10-05 06:53] VITALS: BP 146/39; Ht 157.5 cm; Wt 94.3 kg
--- NOTE | 2019-10-05 07:44 | NUR ---
0655 CRITICAL LAB GLUCOSE-48 CALLED FROM LAB. Floresita ALEMAN R.N. 0700 DR. WILSON CALLED. REPORT OF GLUCOSE 48. ORDERS RECEIVED. Floresita ALEMAN R.N. 0745 REPEAT FSBS 99. CALLED TO DR. WILSON. "PERFECT". NO ORDERS RECEIVED. Floresita ALEMAN R.N.
--- NOTE | 2019-10-05 09:34 | NUR ---
PATIENT LOWER EXTREMITY PINK WITH EDEMA, DR ZUÑIGA NOTIFIED, SANDER.
[2019-10-05] MEDS ORDERED: HYDROCODON-ACE1 EA10 PO (10:09)
== END 2019-10-05 13:50 | disposition home or self-care (01) ==
LOC: D.OPS 06:03 → D.PAN 08:30 → D.OPS 08:30
PROVIDERS: ATTEND Surgery
DX: K82.4 Cholesterolosis of gallbladder (principal); E78.5 Hyperlipidemia, unspecified; E11.22 Type 2 diabetes mellitus with diabetic chronic kidney disease; I12.9 Hypertensive chronic kidney disease with stage 1 through stage 4 chronic kidney disease, or unspecified chronic kidney disease; N18.9 Chronic kidney disease, unspecified; Z86.73 Personal history of transient ischemic attack (TIA), and cerebral infarction without residual deficits; R60.1 Generalized edema; Z79.84 Long term (current) use of oral hypoglycemic drugs

== ENCOUNTER 2019-10-10 12:51 | Inpatient (IN) | payer OTHER ==
[~2019-10-10] VITALS: Ht 157.5 cm; Wt 88.3 kg
[~2019-10-10 12:51] MED LIST changes: +HYDROCODON-ACE1 EA10 PO
--- NOTE | 2019-10-10 13:49 | NUR ---
XR AT PT BEDSIDE
[2019-10-10 14:51] VITALS: BP 169/61
[2019-10-10 16:00] VITALS: BP 154/53
[2019-10-10 17:54] VITALS: BP 178/48; BMI 45.8
[2019-10-10 19:18] LABS: BILIRUBIN NEGATIVE (NEGATIVE); GLUCOSE NEGATIVE (NEGATIVE); KETONE NEGATIVE (NEGATIVE); NITRITE NEGATIVE (NEGATIVE); UROBILINOGEN NORMAL (NORMAL)
[2019-10-10 20:30] VITALS: BP 150/60
--- NOTE | 2019-10-10 23:55 | NUR ---
INITIAL ROUNDS COMPLETED AT 1915 HRS. PT COMPLAINING OF R SIDE PAIN. REPOSITIONED IN BED FOR COMFORT. ASSESSMENT COMPLETED AT 1950 HRS. VSS. SR PER CM HR 63. ALERT AND ORIENTED TO PERSON, PLACE AND TIME. WARREN. IV TO L WRIST WITH BUMEX DRIP AT 4CC/HR. IV PATENT. LUNGS DIMINISHED IN BASES BILAT. ABD LARGE, DISTENDED WITH HYPOACTIVE BS NOTED. INCISIONS X4 NOTED. BRUISING NOTED AROUND UMBILICUS. 4+ EDEMA TO LOWER EXTREMITES WITH BLISTES X 2 NOTED TO LOWER EXTREMITIES. SCD'S REMOVED AND SKIN INSPECTED. NO BREAKDOWN NOTED. BRUISE NOTED TO BUTTOCK CLEFT. PT REPOSITIONED IN BED FOR COMFORT. CONTINUES TO C/O R SIDED PAIN. PT CHECKED FOR IMPACTION WITH NONE NOTED. DR CROFT PAGED AT [address] CROFT RETURNED PAGE AT 2009 HRS. INFORMED OF PT'S C/O SEVERE R SIDED ABD PAIN AND THAT NO IMPACTION NOTED. NEW ORDERS RECEIVED AND NOTED. ULTRAM 50MG PO GIVEN AT 2047 HRS FOR C/O PAIN. PT ASSISTED TO SITTING ON SIDE OF BED. PT BELCHED LOUDLY SEVERAL TIMES AND STATED SHE WAS STARTING TO FEEL BETTER. FSBS 132. NO COVERAGE NEEDED. LANTUS HELD PT NOT EATING. SOAP SUDS ENEMA 750CC GIVEN AT 2300 HRS. WITH 2 SMALL PELLET SIZED STOOL RETURNED. PT CURRENTLY RESTING IN BED WITH HOB UP 50 DEGRESS. PT STATES FEELING BETTER BUT WORRIED R FLANK PAIN WPOULD RETURN. EMOTIONAL SUPPORT GIVEN. ULRICH DRAING YELLOW URINE. SR UP X2, CALL LIGHT WITHIN REACH AND BED ALARM ON.
[2019-10-11 00:30] VITALS: BP 184/56
--- NOTE | 2019-10-11 02:18 | NUR ---
PT RESTING WITH EYES CLOSED. RESP EVEN AND REGULAR. SR UP X2, CALL LIGHT WITHIN REACH.
--- NOTE | 2019-10-11 04:14 | NUR ---
TRAMADOL 50MG PO GIVEN FOR C/O R FLANK PAIN. PT STATES NOT SEVERE BEGINNING OF THE SHIFT. SR UP X2, CALL LIGHT WITHIN REACH.
[2019-10-11 04:30] VITALS: BP 154/58
--- NOTE | 2019-10-11 06:07 | NUR ---
VSS THIS AM. PT STATES FEELS MUCH IMPROVED. NEEDS MET; WILL CONTINUE TO MONITOR.
[2019-10-11] MEDS ORDERED: COMBIGAN OPHT DR5 ML LEFT EYE (06:38)
[2019-10-11] MEDS ORDERED: XALATAN 0.0052.5 ML LEFT EYE (06:39)
[2019-10-11 06:44] LABS: LYMPHOCYTES 10.7 % (15-50); MCH 27.5 pg (26.0-34.0); MCHC 30.8 g/dL (31.0-37.0); MEAN PLATELET VOLUME 12.1 fL (7.4-10.4); NEUTROPHILS 78.7 % (40-80); RDW 16.4 % (11.5-14.5); WBC 7.8 10x3/uL (4.8-10.8)
[2019-10-11 06:48] LABS: CALCIUM 8.8 mg/dL (8.5-10.1); CARBON DIOXIDE 22.3 mmol/L (21.0-32.0)
[2019-10-11 07:05] LABS: HEMATOCRIT 27.6 % (36.0-48.0); HEMOGLOBIN 8.5 g/dL (12-16); MCV 89.3 fL (80.0-100.0); PLATELET COUNT 248 10x3/uL (130-400); RBC 3.09 10x6/uL (4.00-5.40)
--- NOTE | 2019-10-11 07:20 | NUR ---
RECIEVE REPORT. ALERT AND ORIENTED X4. SITTING UP IN BED. DENIES ANY NEEDS. BUMEX DRIP INFUSING ORDERED. CONTINUE PLAN OF CARE AND SAFETY PRECAUTIONS.
[2019-10-11 07:34] LABS: CREATININE - SERUM 2.6 mg/dL (0.6-1.3); POTASSIUM - SERUM 5.3 mmol/L (3.5-5.1)
--- NOTE | 2019-10-11 07:39 | NUR ---
NOTIFY OF CRITICAL BUN 119.
[2019-10-11 09:51] VITALS: BP 167/57
[2019-10-11 11:00] VITALS: BP 114/48
[2019-10-11 12:53] VITALS: BMI 41.3
[2019-10-11 14:00] LABS: APTT 30.5 SECONDS (22.8-39.4); INR 1.27 (0.85-1.17); PROTIME 15.8 SECONDS (11.6-15.0)
[2019-10-11 14:02] LABS: BILIRUBIN - DIRECT 0.12 mg/dL (0.00-0.30); BILIRUBIN - INDIRECT 0.13 mg/dL (0.00-1.00); BILIRUBIN - TOTAL 0.25 mg/dL (0.2-1.3); PROTEIN - SERUM 6.3 g/dL (6.4-8.2)
[2019-10-11 14:23] VITALS: Ht 157.5 cm; Wt 88.3 kg
[2019-10-11 14:48] LABS: CREATININE - URINE 29.4 mg/dL (30-125); PRO/CRE RATIO URINE 3.3 mg/g; PROTEIN - URINE 97.4 mg/dL (0.0-11.9)
[2019-10-11 15:02] LABS: BILIRUBIN NEGATIVE (NEGATIVE); GLUCOSE NEGATIVE (NEGATIVE); KETONE NEGATIVE (NEGATIVE); NITRITE NEGATIVE (NEGATIVE); UROBILINOGEN NORMAL (NORMAL)
[2019-10-11 15:03] LABS: BACTERIA FEW /hpf (NEGATIVE); WHITE CELLS - URINE OCC /hpf (NEGATIVE)
[2019-10-11 15:04] LABS: EPITHELIAL CELLS NSEEN /hpf (0-5)
--- NOTE | 2019-10-11 16:10 | NUR ---
[facility] AND [facility]SF[facility]ED INTO ROOM 2138 WITH ALL BELONGINGS.
--- NOTE | 2019-10-11 19:32 | NUR ---
REPORT RECEIVED AND ROUNDING COMPLETE. PATIENT LAYING IN BED IN HIGH FOWLERS, NO DISTRESS NOTED. LEFT FOREARM PIV THAT IS SALINE LOCKED AT THIS TIME. PATIENT STATES NO NEEDS AT THIS TIME. CALL LIGHT WITHIN REACH AND BED IN LOWEST LOCKED POSITION.
[2019-10-11 20:00] VITALS: BP 181/54
[2019-10-12] VITALS: BP 170/51
--- NOTE | 2019-10-12 02:50 | NUR ---
CHECK PATIENT FSBS PER REQUEST, PATIENT STATES HER BLOOD SUGAR FEELS LOW, SHE IS DIAPHORETIC. FSBS WAS 52, GAVE PATIENT JUICE AND GRAM CRACKERS WITH PEANUT BUTTER.
[2019-10-12 04:00] VITALS: BP 126/54
--- NOTE | 2019-10-12 04:54 | NUR ---
RE CHECKED PATIENTS FSBS AND OT IS NOW 129, PATIENT STATES SHE IS FEELING MUCH BETTER.
[2019-10-12 07:10] LABS: BASOPHILS 0.2 % (0-2); EOSINOPHILS 1.8 % (0-7); HEMATOCRIT 26.6 % (36.0-48.0); HEMOGLOBIN 8.2 g/dL (12-16); IMMATURE GRANULOCYTES 0.4 % (0-5); LYMPHOCYTES 11.6 % (15-50); MCH 27.5 pg (26.0-34.0); MCHC 30.8 g/dL (31.0-37.0); MCV 89.3 fL (80.0-100.0); MEAN PLATELET VOLUME 11.1 fL (7.4-10.4); MONOCYTES 10.7 % (2-11); NEUTROPHILS 75.3 % (40-80); PLATELET COUNT 261 10x3/uL (130-400); RBC 2.98 10x6/uL (4.00-5.40); RDW 16.6 % (11.5-14.5); WBC 9.1 10x3/uL (4.8-10.8)
--- NOTE | 2019-10-12 07:15 | NUR ---
DR. CROFT STATES TO ME IS SUPPOSSED TO BE 12OO ML FLUID RESTRICTION. HE STATES IT SHOULD BE IN NURSE MESSAGE PART SOMEHWERE. I VERBALIZED UNDERSTANDING.
[2019-10-12 07:34] LABS: ANION GAP 16.8 mmol/L (8-16); CALCIUM 8.7 mg/dL (8.5-10.1); CARBON DIOXIDE 22.6 mmol/L (21.0-32.0); CREATININE - SERUM 2.6 mg/dL (0.6-1.3); POTASSIUM - SERUM 5.4 mmol/L (3.5-5.1)
[2019-10-12 08:39] VITALS: BP 173/68
--- NOTE | 2019-10-12 09:53 | NUR ---
PT WANTING TO TRY GET UP WITH PHYSICAL THERAPY. CALLED AND SPOKE WITH LILIAN AT DR. CROFT'S OFFICE AND SHE SPOKE WITH HIM AND SHE STATED TO ME HE STATED TO CONSULT THERAPY. I VERBALIZED UNDERSTANDING.
--- NOTE | 2019-10-12 10:53 | NUR ---
I have reviewed this patient and I concur with the Shift Assessment completed by the Licensed Practical Nurse today this shift.
[2019-10-12 12:00] VITALS: BP 183/100
[2019-10-12 16:38] VITALS: BP 185/70
--- NOTE | 2019-10-12 18:41 | NUR ---
PT WANTING TUMS FOR INDIGESTIONS. CALLED AND SPOKE WITH DR. MAO AND HE STATED THAT IS FINE AND TO ORDER IT. I VERBALIZED UNDERSTANDING.
--- NOTE | 2019-10-12 19:59 | NUR ---
PT LYING IN GBED AWAKE ALERT AND ORIENTED x4. NO SIGNS OF DISTRESS NOTED. RESPIRATIONS EVEN AND UNLABORED. PT HAS NO COMPLAINTS AT THIS TIME. BED IN ITS LOWEST POSITION. CALL LIGHT AND OTHER PERSONAL ITEMS WITH IN REACH. PT ENCOURAGED TO CALL FOR HELP WHEN GETTING IN AND OUT OF BED AND WHEN NEEDED. WILL CONTINUE TO MONOITR
[2019-10-12 20:00] VITALS: BP 190/62
[2019-10-13] VITALS: BP 188/59
--- NOTE | 2019-10-13 01:11 | NUR ---
I have reviewed this patient and I concur with the Shift Assessment completed by the Licensed Practical Nurse today this shift.
--- NOTE | 2019-10-13 03:32 | NUR ---
PT RESTING IN BED QUIETLY WITH EYES CLOSED. NO SIGNS OR SYMPTOMS OF DISTRESS NOTED. REPOSTIONED PT FOR COMFORT. RESPIRATIONS EVEN AND UNLABORED. NO COMPLAINTS AT THIS TIME. CALL LIGHT AND OTHER PERSONAL ITEMS WITH IN REACH. WILL CONTINUE TO MONITOR
[2019-10-13 04:00] VITALS: BP 185/63
[2019-10-13 07:12] LABS: ANION GAP 14.3 mmol/L (8-16); CALCIUM 9.1 mg/dL (8.5-10.1); CARBON DIOXIDE 25.8 mmol/L (21.0-32.0); CREATININE - SERUM 2.4 mg/dL (0.6-1.3); POTASSIUM - SERUM 5.1 mmol/L (3.5-5.1)
--- NOTE | 2019-10-13 07:26 | NUR ---
CRITICAL BUN 108 IMPROVING DAILY
[2019-10-13 07:32] LABS: BASOPHILS 0.2 % (0-2); EOSINOPHILS 3.7 % (0-7); HEMATOCRIT 27.8 % (36.0-48.0); HEMOGLOBIN 8.5 g/dL (12-16); IMMATURE GRANULOCYTES 0.6 % (0-5); LYMPHOCYTES 11.9 % (15-50); MCH 27.2 pg (26.0-34.0); MCHC 30.6 g/dL (31.0-37.0); MCV 89.1 fL (80.0-100.0); MONOCYTES 11.9 % (2-11); NEUTROPHILS 71.7 % (40-80); PLATELET COUNT 292 10x3/uL (130-400); RBC 3.12 10x6/uL (4.00-5.40); RDW 16.7 % (11.5-14.5); WBC 9.1 10x3/uL (4.8-10.8)
--- NOTE | 2019-10-13 08:14 | NUR ---
RESTING IN BED, NO DISTRESS NOTED, FLUID REST NOTED, CONT TO MONITOR OUTPUT AND BLOOD SUGARS
[2019-10-13 10:28] VITALS: BP 173/56
[2019-10-13 11:57] VITALS: BP 150/60
--- NOTE | 2019-10-13 14:30 | NUR ---
Nutrition Follow-up: Pt reports appetite/PO intake much improved. Reports that she ate 100% of breakfast this AM. Diet: Diabetic, 2 g Na, 1200 cc fluid restriction PO intake: 75-100% Wt: 212# (10/11); 226# (10/10); 250# (10/09); noted I/Os (-619.4 cc on 10/11, -2720.2 cc on 10/10) Labs noted: Glu 56 Meds noted: Lantus, Miralax, Tums, Bumex, Humalog, electrolyte protocol -Monitor wt; noted daily wts ordered. -RD following.
--- NOTE | 2019-10-13 15:33 | NUR ---
MEDICATED WITH CATAPRESS FOR BP OF 195/66, CONT TO MONITOR
[2019-10-13 16:11] VITALS: BP 200/70
[2019-10-13 20:00] VITALS: BP 171/50
--- NOTE | 2019-10-13 22:08 | NUR ---
PT LYING IN BED AWAKE ALERT AND ORIENTED x4. NO SIGNS OR SYMPTOMS OF DISTRESS NOTED. RESPIRATIONS EVEN AND UNLABORED. PT HAS NO COMPLAINTS AT THIS ITME. ULRICH CARE DONE. CALL LIGHT AND OTHER PERSONAL ITEMS WITH IN REACH. WILL CONTINUE TO MONITOR
[2019-10-14] VITALS: BP 182/62
--- NOTE | 2019-10-14 03:44 | NUR ---
I have reviewed this patient and I concur with the Shift Assessment completed by the Licensed Practical Nurse today this shift.
[2019-10-14 07:18] LABS: ANION GAP 13.5 mmol/L (8-16); CALCIUM 8.9 mg/dL (8.5-10.1); CARBON DIOXIDE 26.3 mmol/L (21.0-32.0); CREATININE - SERUM 2.5 mg/dL (0.6-1.3); POTASSIUM - SERUM 4.8 mmol/L (3.5-5.1)
--- NOTE | 2019-10-14 09:29 | NUR ---
NATHEN CARLOSIP IN [place] EXPIRES 10/14/19 1100 CALLED AND SPOKE WITH AMARIS IN PHARMACY AND SHE STATES SHE WILL HAVE A NEW BAG MADE AND BROUGHT UP. I VERBALIZED UNDERSTANDING.
--- NOTE | 2019-10-14 11:04 | NUR ---
CALLED PHARMACY AND AGAIN ABOUT BUMEX BAG AND THEY STATED THAT BAG IS STILL GOOD AND THE EXPIRATION DOESN'T MEAN THE BAG IS NO LONGER GOOD IT. THEY STATED IT IS STILL GOOD AND TO USE THE BAG IN THE [place]ID[place]. I VERBALIZED UNDERSTANDING.
--- NOTE | 2019-10-14 13:13 | MORECARE ---
CASE MANAGEMENT DISCHARGE SUMMARY PATIENT: ADRIA KHALIL AMARIS UNIT: [id number] ADM DATE: 10/10/19 AGE: 74 : 46 SEX: F ROOM/BED: D.2138 AUTHOR: ARMANDO CHAPPELL PHYSICIAN: REFERRING PHYSICIAN: ELIAS CROFT MD DATE OF SERVICE: 10/14/19 Discharge Plan Patient Name: ADRIA KHALIL Facility: [facility]:[place] : 1945 Planned Disposition: Anticipated Discharge Date: Discharge Date: Expected LOS: Initial Reviewer: [email or web address] Initial Review Date: 10/10/2019 Generated: 10/14/19 2:13 pm Patient Name: ADRIA KHALIL Page [phone] at 1313 All edits/amendments must be made on the electronic document DICTATION DATE: 10/14/19 1313 DRIVER SALESMAN: ROSMERY 10/14/19 1313 RPT#: [id number] DC DATE: STATUS: ADM IN [facility] [address] [place] [address] END OF REPORT
--- NOTE | 2019-10-14 13:36 | NUR ---
I have reviewed this patient and I concur with the Shift Assessment completed by the Licensed Practical Nurse today this shift.
--- NOTE | 2019-10-14 14:00 | MORECARE ---
CASE MANAGEMENT DISCHARGE SUMMARY PATIENT: ADRIA KHALIL AMARIS UNIT: [id number] ADM DATE: 10/10/19 AGE: 74 : 46 SEX: F ROOM/BED: D.5305 AUTHOR: ARMANDO CHAPPELL PHYSICIAN: REFERRING PHYSICIAN: ELIAS CROFT MD DATE OF SERVICE: 10/14/19 Discharge Plan Patient Name: ADRIA KHALIL Facility: [facility]:[place] : 1945 Planned Disposition: Anticipated Discharge Date: Discharge Date: Expected LOS: Initial Reviewer: [email or web address] Initial Review Date: 10/10/2019 Generated: 10/14/19 3:00 pm Last DP export: 10/14/19 12:13 p Patient Name: ADRIA KHALIL Page 31424 at 1400 All edits/amendments must be made on the electronic document DICTATION DATE: 10/14/19 1400 TOOL AND EQUIPMENT RENTAL CLERK: ROSMERY 10/14/19 1400 RPT#: [id number] DC DATE: STATUS: ADM IN [facility] [address] [place] [address] END OF REPORT
--- NOTE | 2019-10-14 14:07 | MORECARE ---
CASE MANAGEMENT DISCHARGE SUMMARY PATIENT: ADRIA KHALIL AMARIS UNIT: [id number] ADM DATE: 10/10/19 AGE: 74 : 46 SEX: F ROOM/BED: D.2138 AUTHOR: ARMANDO CHAPPELL PHYSICIAN: REFERRING PHYSICIAN: ELIAS CROFT MD DATE OF SERVICE: 10/14/19 Discharge Plan Patient Name: ADRIA KHALIL [facility] [facility] 1945 Planned Disposition: Anticipated Discharge Date: Discharge Date: Expected LOS: Initial Reviewer: [email or web address] Initial Review Date: 10/10/2019 Generated: 10/14/19 3:06 pm DCPIA - Discharge Planning Initial Assessment Updated by [email or web address]: Krystal Vargas on 10/14/19 2:04 pm * Is the patient Alert and Oriented? Yes * How many steps to enter\exit or inside your home? 0/0 * PCP * Pharmacy [facility] * Preadmission Environment Home with Family * ADLs Independent * Equipment Bedside Commode Rolling Walker Shower Chair Walker Wheelchair * List name and contact numbers for known caregivers / representatives who currently or will assist patient after discharge: CONNER WAY [phone] DTR FRED [place] AT BEDSIDE * Verbal permission to speak to the caregivers and representatives has been obtained from the patient. Yes * Community resources currently utilized None * Additional services required to return to the preadmission environment? Yes * Can the patient safely return to the preadmission environment? No * Has this patient been hospitalized within the prior 30 days at any hospital? No Last DP export: 10/14/19 1:00 p Patient Name: ADRIA KHALIL Page [phone] at 1407 All edits/amendments must be made on the electronic document DICTATION DATE: 10/14/191405 JUVENILE COUNSELOR: ROSMERY 10/14/19 1406 RPT#: [id number] DC DATE: STATUS: ADM IN [facility] [address] [place] [address] END OF REPORT
--- NOTE | 2019-10-14 14:15 | MORECARE ---
CASE MANAGEMENT DISCHARGE SUMMARY PATIENT: ADRIA KHALIL AMARIS UNIT: [id number] ADM DATE: 10/10/19 AGE: 74 : 46 SEX: F ROOM/BED: D.8217 AUTHOR: ARMANDO CHAPPELL PHYSICIAN: REFERRING PHYSICIAN: ELIAS CROFT MD DATE OF SERVICE: 10/14/19 Discharge Plan Patient Name: ADRIA KHALIL Facility: [facility]:[place] : 1945 Planned Disposition: Anticipated Discharge Date: Discharge Date: Expected LOS: Initial Reviewer: [email or web address] Initial Review Date: 10/10/2019 Generated: 10/14/19 3:15 pm Comments DCP- Discharge Planning Updated by [email or web address]: Krystal Vargas on 10/14/19 1:[address] Patient Name: ADRIA KHALIL Admission Status: ER Accout number: [id number] Admission Date: 10-10-2019 : 1945 Admission Diagnosis:OTH POSTPROCEDURAL COMPLICATIONS AND DISORDERS OF DGSTV Attending: ELIAS CROFT Current LOS: 4 Anticipated DC Date: Planned Disposition: Primary Insurance: Mobile Safe Case Discharge Planning Comments: CM met with patient to complete initial dc planning assessment. CM educated patient on the CM role and verbal consent given by patient to complete assessment. CM verified patient's address, phone number, and emergency contact phone numbers. Patient lives at home with her . Patient has a rollator, bedside commode, shower chair, and a recliner lift. At discharge patient states she could use some rehab. MIGUELANGEL signed for [facility] IP rehab, and [facility] for home after rehab. Transportation provider at discharge will be her Fred . CM will continue to follow and will assist as needed with dc plans/needs. Grocery Department Manager: Krystal Vargas DCPIA - Discharge Planning Initial Assessment Updated by [email or web address]: Krystal Vargas on 10/14/19 2:04 pm * Is the patient Alert and Oriented? Yes * How many steps to enter\exit or inside your home? 0/0 * PCP INDONESIAN * Pharmacy [facility] * Preadmission Environment Home with Family * ADLs Independent * Equipment Bedside Commode Rolling Walker Shower Chair Walker Wheelchair * List name and contact numbers for known caregivers / representatives who currently or will assist patient after discharge: CONNER WAY [phone] DTR FRED AT BEDSIDE * Verbal permission to speak to the caregivers and representatives has been obtained from the patient. Yes * Community resources currently utilized None * Additional services required to return to the preadmission environment? Yes * Can the patient safely return to the preadmission environment? No * Has this patient been hospitalized within the prior 30 days at any hospital? No Last DP export: 10/14/19 1:07 p Patient Name: ADRIA KHALIL Page [phone] at 1415 All edits/amendments must be made on the electronic document DICTATION DATE: 10/14/191413 HOD CARRIER: ROSMERY 10/14/191413 RPT#: [id number] DC DATE: STATUS: ADM IN [facility] [address] [place] [address] END OF REPORT
--- NOTE | 2019-10-14 14:54 | NUR ---
REHAB PRESCREENING Rehab referral received and chart reveiwed. This patient has [facility] as her provider which requires a prior authorization. PT eval is completed. OT has been ordered. Rehab will continue to follow for OT eval and submit for authorization approval at that time. Thank you for this referral! Sowmya Blood, SUPPLY REQUIREMENTS OFFICER Rehab PD
[2019-10-14 15:21] VITALS: BP 181/72
[2019-10-14 15:23] VITALS: BP 188/67
--- NOTE | 2019-10-14 16:56 | NUR ---
OT NOTE: PT COMPLETED SIT TO STAND WITH CGA. PT COMPLETED STANDING BALANCE WITH WT SHIFT TO R SIDE. PT IS WEAKER ON R SIDE AND REQUIRED INCREASED ASSISTANCE. PT COMPLETED FACE HYGIENE WITH SETUP. PT IS IMPROVING WITH FUNCTIONAL INDEPENDENCE. [phone] THANK YOU,LISANDRA ADDISON
[2019-10-14 17:54] VITALS: BP 182/72
[2019-10-14 20:00] VITALS: BP 177/70
[2019-10-15] VITALS: BP 134/68
[2019-10-15 04:00] VITALS: BP 139/64
[2019-10-15 07:48] LABS: BASOPHILS 0.2 % (0-2); EOSINOPHILS 2.1 % (0-7); HEMATOCRIT 27.9 % (36.0-48.0); HEMOGLOBIN 8.8 g/dL (12-16); IMMATURE GRANULOCYTES 0.6 % (0-5); LYMPHOCYTES 11.3 % (15-50); MCH 27.4 pg (26.0-34.0); MCHC 31.5 g/dL (31.0-37.0); MEAN PLATELET VOLUME 10.6 fL (7.4-10.4); MONOCYTES 9.4 % (2-11); NEUTROPHILS 76.4 % (40-80); PLATELET COUNT 290 10x3/uL (130-400); RBC 3.21 10x6/uL (4.00-5.40); RDW 16.4 % (11.5-14.5); WBC 9.6 10x3/uL (4.8-10.8)
[2019-10-15 07:52] LABS: MCV 86.9 fL (80.0-100.0)
[2019-10-15 08:15] LABS: ANION GAP 15.8 mmol/L (8-16); CALCIUM 8.7 mg/dL (8.5-10.1); CARBON DIOXIDE 25.4 mmol/L (21.0-32.0); CREATININE - SERUM 2.6 mg/dL (0.6-1.3); POTASSIUM - SERUM 4.2 mmol/L (3.5-5.1)
[2019-10-15 09:50] VITALS: BP 174/75
[2019-10-15 13:41] VITALS: BP 168/60
--- NOTE | 2019-10-15 15:28 | NUR ---
OT NOTE: PT COMPLETED SUPINE TO SIT WITH MIN A. PT COMPLETED EOB SITTING WITH CGA. PT COMPLETED SIT TO STAND WITH CGA. PT COMPLETED SIDE STEPPING WITH CGA/MIN A. PT COMPLETED UE AROM EXS AT EOB. PT IS EASILY FATIGUED. PT REQUIRED INCREASED ASSISTANCE SECONDARY TO CONTINUED R SIDE WEAKNESS. [phone] THANK YOU,LISANDRA ADDISON
--- NOTE | 2019-10-15 15:50 | NUR ---
ASSISTED TO BSC. PT HAD A MEDIUM SIZE BM. GAVE PT A CHG BED BATH AND COMPLETE LINEN CHANGE DONE. REMOVED SCD'S WHILE BATHING PT AND SCD'S MADE BLISTERS POP AND SKIN STUCK TO SCD AND REMOVED WHEN TAKING THEM OFF ON BLE. RIGHT AND LEFT LOWER EXTREMITY CLEANSED WITH WOUND CLEANSER AND COVERED WITH XEROFORM THEN PLACED 4X4 AND COVERED WITH BORDER GAUZE TAPE. BUTTOCK RED AND SLOW TO LIZ. ULRICH CARE DONE. CALLED CELI SPIVEYINFORMATION TECHNOLOGY SECURITY ANALYST NURSE AND SHE STATES THE DRESSING CHANGE THIS NURSE DID WAS GOOD AND LONG THERE IS SOMETHING COVERING ARE THAT WON'T STICK AND REMOVE SKIN ANY FURTHER. I VERBALIZED UNDERSTANDING.
--- NOTE | 2019-10-15 19:49 | NUR ---
I have reviewed this patient and I concur with the Shift Assessment completed by the Licensed Practical Nurse today this shift.
[2019-10-15 21:10] VITALS: BP 176/76
--- NOTE | 2019-10-15 22:04 | NUR ---
PT IN BED, AAO X 3, RESP EVEN AND UNLABORED. NO DISTRESS NOTED. CL IN REACH, SR UP X 2.
[2019-10-16 00:13] VITALS: BP 196/69
--- NOTE | 2019-10-16 04:04 | NUR ---
I have reviewed this patient and I concur with the Shift Assessment completed by the Licensed Practical Nurse today this shift.
[2019-10-16 04:54] VITALS: BP 184/77
[2019-10-16 05:25] LABS: BASOPHILS 0.4 % (0-2); EOSINOPHILS 3.2 % (0-7); HEMATOCRIT 28.1 % (36.0-48.0); HEMOGLOBIN 8.6 g/dL (12-16); IMMATURE GRANULOCYTES 0.8 % (0-5); LYMPHOCYTES 14.5 % (15-50); MCH 27.1 pg (26.0-34.0); MCHC 30.6 g/dL (31.0-37.0); MCV 88.6 fL (80.0-100.0); MEAN PLATELET VOLUME 10.8 fL (7.4-10.4); MONOCYTES 9.5 % (2-11); NEUTROPHILS 71.6 % (40-80); PLATELET COUNT 315 10x3/uL (130-400); RBC 3.17 10x6/uL (4.00-5.40); RDW 16.4 % (11.5-14.5); WBC 7.8 10x3/uL (4.8-10.8)
[2019-10-16 05:34] LABS: ANION GAP 12.6 mmol/L (8-16); CALCIUM 9.3 mg/dL (8.5-10.1); CARBON DIOXIDE 29.3 mmol/L (21.0-32.0); CREATININE - SERUM 2.6 mg/dL (0.6-1.3); POTASSIUM - SERUM 3.9 mmol/L (3.5-5.1)
[2019-10-16 08:56] VITALS: BP 180/70
[2019-10-16 13:12] VITALS: BP 185/74
[2019-10-16 18:31] VITALS: BP 190/63
--- NOTE | 2019-10-16 18:54 | NUR ---
I have reviewed this patient and I concur with the Shift Assessment completed by the Licensed Practical Nurse today this shift.
[2019-10-16 20:00] VITALS: BP 183/63
[2019-10-17] VITALS: BP 180/68
[2019-10-17 07:06] LABS: BASOPHILS 0.2 % (0-2); EOSINOPHILS 3.6 % (0-7); HEMOGLOBIN 8.9 g/dL (12-16); IMMATURE GRANULOCYTES 0.3 % (0-5); LYMPHOCYTES 11.3 % (15-50); MCH 27.1 pg (26.0-34.0); MCHC 30.7 g/dL (31.0-37.0); MCV 88.4 fL (80.0-100.0); MEAN PLATELET VOLUME 11.1 fL (7.4-10.4); MONOCYTES 6.5 % (2-11); NEUTROPHILS 78.1 % (40-80); PLATELET COUNT 330 10x3/uL (130-400); RBC 3.28 10x6/uL (4.00-5.40); RDW 16.4 % (11.5-14.5); WBC 9.7 10x3/uL (4.8-10.8)
[2019-10-17 07:32] LABS: ANION GAP 12.3 mmol/L (8-16); CALCIUM 8.8 mg/dL (8.5-10.1); CARBON DIOXIDE 28.5 mmol/L (21.0-32.0); CREATININE - SERUM 2.5 mg/dL (0.6-1.3); POTASSIUM - SERUM 3.8 mmol/L (3.5-5.1)
[2019-10-17 09:44] VITALS: BP 99/66
--- NOTE | 2019-10-17 10:14 | NUR ---
PT ALERT AND ORIENTED X4 UPON ENTERING, UPRIGHT IN BED. ADMINISTERED MEDICATION, NO DIFFICULTIES. ASSESSMENT PERFORMED AT THIS TIME. SITUATED IN BED. DENIES ANY OTHER NEEDS. BED IN LOWEST POSITION, BED RAILS X2, CALL LIGHT WITHIN REACH. WILL CONTINUE TO MONITOR.
--- NOTE | 2019-10-17 11:37 | NUR ---
I have reviewed this patient and I concur with the Shift Assessment completed by the Licensed Practical Nurse today this shift.
--- NOTE | 2019-10-17 11:42 | NUR ---
I have reviewed this patient and I concur with the Shift Assessment completed by the Licensed Practical Nurse today this shift.
--- NOTE | 2019-10-17 13:01 | NUR ---
ADMINISTERED MEDICATION. ASSESSED BLOOD SUGAR. 323, 12 UNITS INSULIN PER SLIDING SCALE. SITUATED PT BACK IN BED, SUPINE. FAMILY AT BEDSIDE. DENIES ANY NEEDS. WILL CONTINUE TO MONITOR.
[2019-10-17 13:38] VITALS: BP 119/90
--- NOTE | 2019-10-17 16:58 | NUR ---
ADMINISTERED MEDICATION, NO DIFFICULTIES. ASSESSED BLOOD SUGAR. 308, 12 UNITS PER SLIDING SCALE. HELPED PT TO BEDSIDE TO EAT DINNER. DENIES ANY OTHER NEEDS. WILL CONTINUE TO MONITOR.
[2019-10-17 17:45] VITALS: BP 151/45
--- NOTE | 2019-10-17 18:46 | NUR ---
CHANGED DRESSING ON RIGHT CALF. LEFT CALF DRESSING C/D/I. RESTING COMFORTABLY IN BED. DENIES ANY NEEDS. WILL CONTINUE TO MONITOR.
[2019-10-17 20:00] VITALS: BP 183/53
[2019-10-18] VITALS: BP 146/44
[2019-10-18 04:00] VITALS: BP 169/49
[2019-10-18 06:15] LABS: BASOPHILS 0.3 % (0-2); EOSINOPHILS 3.8 % (0-7); HEMOGLOBIN 8.2 g/dL (12-16); IMMATURE GRANULOCYTES 0.4 % (0-5); LYMPHOCYTES 13.7 % (15-50); MCHC 30.4 g/dL (31.0-37.0); MCV 88.8 fL (80.0-100.0); MONOCYTES 7.1 % (2-11); NEUTROPHILS 74.7 % (40-80); PLATELET COUNT 284 10x3/uL (130-400); RBC 3.04 10x6/uL (4.00-5.40); RDW 16.3 % (11.5-14.5)
[2019-10-18 06:22] LABS: WBC 6.8 10x3/uL (4.8-10.8)
[2019-10-18 06:33] LABS: ANION GAP 9.1 mmol/L (8-16); CALCIUM 8.3 mg/dL (8.5-10.1); CREATININE - SERUM 2.8 mg/dL (0.6-1.3); POTASSIUM - SERUM 4.1 mmol/L (3.5-5.1)
--- NOTE | 2019-10-18 07:50 | NUR ---
REPORT RECIEVED. PT SITTING SEMI FOWLERS IN BED. RR EVEN AND UNLABORED ON RA. PT HAS A L FA PIV INFUSING BUMEX @ 2.5. BED LOCKED AND IN LOWEST POSITION, CALL LIGHT WITHIN REACH. WILL CTM
[2019-10-18 09:22] VITALS: BP 151/67
--- NOTE | 2019-10-18 10:34 | NUR ---
Rehab Note- Received call and fax with Auth approval from Jennifer newby/ [facility]. Auth #[id number]. Will accept the patient when medically stable. Thank you for this referral! Altagracia Garcia RN Clinical Liaison, [facility] Rehab
[2019-10-18 13:56] VITALS: BP 144/56
--- NOTE | 2019-10-18 13:56 | MORECARE ---
CASE MANAGEMENT DISCHARGE SUMMARY PATIENT: ADRIA KHALIL AMARIS UNIT: [id number] ADM DATE: 10/10/19 AGE: 74 : 46 SEX: F ROOM/BED: D.8778 AUTHOR: ARMANDO CHAPPELL PHYSICIAN: REFERRING PHYSICIAN: ELIAS BAKER MD DATE OF SERVICE: 10/18/19 Discharge Plan Patient Name: ADRIA KHALIL Facility: [facility]:[place] : 1945 Planned Disposition: Anticipated Discharge Date: Discharge Date: Expected LOS: Initial Reviewer: [email or web address] Initial Review Date: 10/10/2019 Generated: 10/18/19 2:55 pm Comments DCP- Discharge Planning Updated by [id number]: Krystal Vargas on 10/18/19 12:[address] Patient Name: ADRIA KHALIL Encounter No: [id number] : 1945 Primary Insurance: [employer] Anticipated DC Date: Planned Disposition: External Planned Provider: : DCP follow-up note: Spoke with Dr Baker states pt can be discharged to IP rehab once accepted. Cm spoke with Altagracia during am IDT who stated the auth has been approved and rehab will take pt today. CM spoke with patient about dc plan. Patient and family in agreement with discharge plan. No changes to plan.DC IMM delivered, explained, signed by the patient, and placed in chart. Signed form also left with the patient. Case management will follow and assist as needed. Krystal Vargas MSN,RN,CM DCP- Discharge Planning Updated by [email or web address]: Krystal Vargas on 10/14/19 1:[address] Patient Name: ADRIA KHALIL Admission Status: ER Accout number: [id number] Admission Date: 10-10-2019 : 1945 Admission Diagnosis:OTH POSTPROCEDURAL COMPLICATIONS AND DISORDERS OF DGSTV Attending: ELIAS BAKER Current LOS: 4 Anticipated DC Date: Planned Disposition: Primary Insurance: NOV[employer] Discharge Planning Comments: CM met with patient to complete initial dc planning assessment. CM educated patient on the CM role and verbal consent given by patient to complete assessment. CM verified patient's address, phone number, and emergency contact phone numbers. Patient lives at home with her . Patient has a rollator, bedside commode, shower chair, and a recliner lift. At discharge patient states she could use some rehab. MIGUELANGEL signed for [facility] IP rehab, and [facility] for home after rehab. Transportation provider at discharge will be her Fred . CM will continue to follow and will assist as needed with dc plans/needs. Sample Puller: Krystal Vargas DCPIA - Discharge Planning Initial Assessment Updated by [email or web address]: Krystal Vargas on 10/14/19 2:04 pm * Is the patient Alert and Oriented? Yes * How many steps to enter\exit or inside your home? 0/0 * PCP SYRIAN * Pharmacy [facility] * Preadmission Environment Home with Family * ADLs Independent * Equipment Bedside Commode Rolling Walker Shower Chair Walker Wheelchair * List name and contact numbers for known caregivers / representatives who currently or will assist patient after discharge: CONNER WAY [phone] DTR FRED AT BEDSIDE * Verbal permission to speak to the caregivers and representatives has been obtained from the patient. Yes * Community resources currently utilized None * Additional services required to return to the preadmission environment? Yes * Can the patient safely return to the preadmission environment? No * Has this patient been hospitalized within the prior 30 days at any hospital? No Coverage Notice Reviewer: [email or web address] - Krystal Vargas Notice Issued Date-Time: 10/18/2019 13:25 Notice Type: IM Discharge Notice Notice Delivered To: Patient Relationship to Patient: Water Softener Servicer Name: Delivery Method: HAND - Hand Delivered Isha Days: Prior Verbal Notification: Recipient Understood Notice: Yes Recipient Signature: Yes Med Rec Note Co-signed by Attending: Coverage Notice Comment: DC IMM delivered, explained, signed by the patient, and placed in chart. Signed form also left with the patient. Last DP export: 10/14/19 1:15 p Patient Name: ADRIA KHALIL Page 66106 at 1356 All edits/amendments must be made on the electronic document DICTATION DATE: 10/18/19 1354 CLOTH WIRE WEAVER: ROSMERY 10/18/19 1350 RPT#: [id number] DC DATE: STATUS: ADM IN [facility] [address] [place] [address] END OF REPORT
[2019-10-18] MEDS ORDERED: LASIX40 MG PO (14:04)
[2019-10-18 18:54] VITALS: BP 172/69
--- NOTE | 2019-10-18 19:12 | NUR ---
I have reviewed this patient and I concur with the Shift Assessment completed by the Licensed Practical Nurse today this shift.
== END 2019-10-18 20:00 | DRG 394 ==
LOC: D.ER 12:51 → D.M2 16:41
PROVIDERS: Emergency Medicine; Internal Medicine Nephrology; Surgery; ADMIT Family Medicine; ATTEND Family Medicine
DX: K91.89 Other postprocedural complications and disorders of digestive system (principal); N17.9 Acute kidney failure, unspecified; R60.1 Generalized edema; D64.9 Anemia, unspecified; K21.9 Gastro-esophageal reflux disease without esophagitis; E03.9 Hypothyroidism, unspecified; E78.5 Hyperlipidemia, unspecified; I10 Essential (primary) hypertension; M19.90 Unspecified osteoarthritis, unspecified site; I12.9 Hypertensive chronic kidney disease with stage 1 through stage 4 chronic kidney disease, or unspecified chronic kidney disease; N18.3 Chronic kidney disease, stage 3 (moderate); M10.9 Gout, unspecified; E11.22 Type 2 diabetes mellitus with diabetic chronic kidney disease; K59.09 Other constipation; Y83.9 Surgical procedure, unspecified as the cause of abnormal reaction of the patient, or of later complication, without mention of misadventure at the time of the procedure; E87.70 Fluid overload, unspecified

== ENCOUNTER 2019-10-18 16:29 | Inpatient (IN) | payer MEDICARE ==
[~2019-10-18] VITALS: Ht 157.5 cm; Wt 86.8 kg
--- NOTE | ~2019-10-18 | RHP ---
PATIENT: ADRIA KHALIL MEDICAL RECORD: [id number] ACCOUNT: [id number] LOCATION:[facility] : 47 ADMISSION DATE: 10/18/19 REHABILITATION HISTORY AND PHYSICAL EXAMINATION POST ADMISSION PHYSICIAN EXAMINATION ADMITTING DIAGNOSIS: Acute renal failure. HISTORY OF PRESENT ILLNESS: The patient is a 74-year-old female who presented to the Emergency Room on 10/09 with right upper quadrant pain, right hip pain and increased edema to her extremities. She is status post a laparoscopic cholecystectomy, was noted to have ascites at the time of the operation, she was very fatigued. She had 4+ pitting edema. Her weight was 50 pounds over her normal weight. Her BUN and creatinine were 119 and 2.6, potassium was 5.3, H&H 8.5 and 27.6. She had pulmonary edema on her chest x-ray. A PIPIDA scan showed no signs of bile leak. Nephrology was consulted. She was followed by renal with her history of chronic renal failure stage III. She was started on a Bumex drip, renal ultrasound. She had significant limited exam due to body habitus and overlying bowel gas. The left kidney was not visualized well. Echo showed a left ventricular size and function with ejection fraction of 55%. She had a significant diuresis and weight down from 250-195 with less shortness of breath, Bumex drip was discharged and changed p.o. She remains very weak and deconditioned. The patient was independent with ADLs and mobility. She lives at home with her . She had prolonged immobility, progressive generalized weakness, especially in the lower extremities. She is very fatigued, has limited flexion, extension, proximal muscle strength is decreased. She is mod to max assist for ADLs, mod to max assist for sit to stand and bed to chair. She wants to regain her strength and return back home. COMORBIDITIES: Include anemia, chronic kidney disease, decreased mobility, gout, decreased physical functioning. She has also got anasarca, hypothyroidism, fatigue, weakness, obesity, history of tobacco use, hypertension, hyperlipidemia, history of CVA, COPD. She has had bilateral CEAs in the past. PAST MEDICAL HISTORY: Significant for CVA, neuropathy, weakness, has a history of lens implants, thyroid problems, diabetes, edema, carotid stenosis, constipation, acid reflux. PAST SURGICAL HISTORY: Includes hysterectomy, gallbladder, tonsillectomy, adenoidectomy and bilateral carotid endarterectomies. ALLERGIES: No known drug allergies. CURRENT MEDICATIONS: Include Alphagan drops 1 drop b.i.d. She is on Timoptic drops 1 drop b.i.d., Protonix 40 mg every other day, lisinopril 10 mg daily, Flonase nasal spray daily, aspirin chewable 81 mg daily, Norvasc 5 mg daily, Lipitor 80 mg daily, Lantus 45 units daily, Lopid 600 mg b.i.d., Synthroid 50 mcg daily, clonidine 0.2 mg q.8 hours, Trusopt eyedrops 1 drop b.i.d., Suma 60 mg b.i.d., Hytrin 2 mg b.i.d., Xalatan eye drops 1 drop at bedtime, a low-resistant sliding scale with insulin, she is on Singulair 10 mg at bedtime, Bagley 10/325 one tab q.6 hours p.r.n., Lantus 30 units at bedtime which appears to be in conflict with the above so I actually changed that, and furosemide 40 mg b.i.d. HISTORY AND PHYSICAL [id number] ADRIA KHALIL HABITS: Does have a history of tobacco use and alcohol use. FAMILY HISTORY: Noncontributory. SOCIAL HISTORY: The patient hopes to return back home and get back to her prior level of functioning. REVIEW OF SYSTEMS: GENERAL: Does complain of weakness and fatigue. HEENT: Denies cold, cough, or congestion. CARDIOVASCULAR: Denies any chest pain. PHYSICAL EXAMINATION: VITAL SIGNS: Stable, afebrile. GENERAL: An elderly female, in no acute distress upon exam. HEENT: Normocephalic and atraumatic. Mucosa moist. NECK: Supple. No lymphadenopathy. LUNGS: Clear at this time in upper sandra. HEART: Regular rate and rhythm. No murmurs, rubs, or gallops. ABDOMEN: Soft, benign. She does have a small amount of fluid noted. EXTREMITIES: Does have 1-2+ peripheral edema. NEUROLOGIC: She does have proximal muscle weakness. LABORATORY DATA: Her admit UA is essentially negative. Her white count was 7.5, H&H 8.7 and 28.7, and platelet count is 253. Sodium 140, potassium 4.1, BUN and creatinine of 97 and 2.6, and blood sugar was noted to be 127. ASSESSMENT: This is a 74-year-old female patient admitted to rehab with a working diagnosis of acute renal failure. The patient has potential to make improvement. We instituted the following multidisciplinary therapies including, but not limited to physical, occupational, respiratory, speech, nutritional services, prosthetics and orthotics. Given her complex medical condition and risk for more complications, rehabilitation services cannot be provided at a low level of care such as shelter facility. PLAN: 1. Admit to [facility] for an inpatient therapy to include the following disciplines: A. Physical therapy to improve gait, all transfer skills and bed mobility to a modified independent level. B. Occupational therapy to a modified independent level. C. Case management to help with discharge planning and placement options. D. Nutrition to assist with nutritional needs. E. Rehabilitation nursing to assist in monitoring the patient's underlying medical conditions and to assist with any type of bowel or bladder management. 2. The patient's current medication and medical care will be continued. 3. The patient will be placed on standard fall precautions. 4. The patient's estimated length of stay is approximately 7-10 days. 5. We will discuss the patient during care team staff meeting this week. TRANSINT:[id number] Voice Confirmation ID: [id number] DOCUMENT ID: [id number] ADITI notes whether there has been none or any medical/functional HISTORY AND PHYSICAL [id number] ADRIA KHALIL change since admission: - No change since preadmission screen. ADITI attests patient continues to be appropriate for IRF: - Continues to be appropriate. HARISH GOVEA MD CC: [id number] DICTATION DATE: 10/19/19 0848 HONING MACHINE SET UP OPERATOR TOOL: 10/19/19 1012 ADM IN [facility] [address] [place] [address]
[~2019-10-18 16:29] MED LIST changes: +LASIX40 MG PO; +XALATAN 0.0052.5 ML LEFT EYE
--- NOTE | 2019-10-18 20:15 | NUR ---
RECEIVED PT VIA FROM [employer], PT TO ROOM 1217S, TRANSFERS SELF WITH MINIMAL ASSISTANCE, PT ORIENTED TO ROOM, BED IN LOW POSITION, SIDE RAILS X 2, CALL LIGHT IN REACH
--- NOTE | 2019-10-18 21:25 | NUR ---
INFORMED PT THAT I JUST GOT HER ORDERS IN THE COMPUTER FOR HER MED, WILL ADM, PT VERBALIZES UNDERSTANDING
[2019-10-18 21:38] VITALS: BP 109/61
--- NOTE | 2019-10-18 22:30 | NUR ---
ADM 2100/2200 MEDS PER MD ORDERS
--- NOTE | 2019-10-18 22:31 | NUR ---
ADMISSION HISTORY AND ASSESSMENT COMPLETED, POC DISCUSSED WITH PT, PT VERBALIZES UNDERSTANDING, DENIES NEEDS AT THIS TIME, FALL PRECATIONS IN PLACE
--- NOTE | 2019-10-18 22:36 | NUR ---
ADM INSULIN PER MD ORDERS, SEE EMAR
--- NOTE | 2019-10-18 22:46 | NUR ---
ADMISSTION ASSESSMENT, HISTORY AND MED REC STARTED
[2019-10-18 23:01] VITALS: BP 109/61; BMI 32.1
--- NOTE | 2019-10-19 00:40 | NUR ---
PT LITHOGRAPHIC PRINTING MACHINIST LIGHT, BED NOT WORKING, CHANGED BED OUT, PT DENIES FURTHER NEEDS, FALL PRECAUTIONS IN PLACE
--- NOTE | 2019-10-19 01:31 | NUR ---
PT RESTING WITH EYES CLOSED, RESP QUIET, NO DISTRESS NOTED, LEFT UNDISTURBED AT THIS TIME, FALL PRECAUTIONS IN PLACE
--- NOTE | 2019-10-19 01:33 | NUR ---
PT RESTING WITH EYES CLOSED, RESP QUIET, NO DISTRESS NOTED, LEFT UNDISTURBED AT THIS TIME, FALL PRECAUTIONS IN PLACE
--- NOTE | 2019-10-19 03:44 | NUR ---
PT RESTING WITH EYES CLOSED, RESP QUIET, NO DISTRESS NOTED, LEFT UNDISTURBED AT THIS TIME, FALL PRECAUTIONS IN PLACE
--- NOTE | 2019-10-19 06:27 | NUR ---
PT RESTING WITH EYES CLOSED, AROUSES TO SOFT VERBAL STIMULATION, OBTAINED FSBS, ADM 0600 MEDS, EMPTIED MOJGAN, PT DENIES NEEDS AT THIS TIME, FALL PRECAUTIONS IN PLACE
[2019-10-19 06:36] LABS: BASOPHILS 0.3 % (0-2); EOSINOPHILS 3.1 % (0-7); HEMATOCRIT 28.7 % (36.0-48.0); HEMOGLOBIN 8.7 g/dL (12-16); IMMATURE GRANULOCYTES 0.5 % (0-5); MCH 27.2 pg (26.0-34.0); MCHC 30.3 g/dL (31.0-37.0); MCV 89.7 fL (80.0-100.0); MEAN PLATELET VOLUME 11.1 fL (7.4-10.4); MONOCYTES 9.2 % (2-11); NEUTROPHILS 74.9 % (40-80); PLATELET COUNT 253 10x3/uL (130-400); RDW 16.1 % (11.5-14.5); WBC 7.5 10x3/uL (4.8-10.8)
[2019-10-19 06:57] LABS: BILIRUBIN NEGATIVE (NEGATIVE); GLUCOSE NEGATIVE (NEGATIVE); KETONE NEGATIVE (NEGATIVE); NITRITE NEGATIVE (NEGATIVE); UROBILINOGEN NORMAL (NORMAL)
[2019-10-19 06:58] LABS: ANION GAP 13.8 mmol/L (8-16); CALCIUM 7.9 mg/dL (8.5-10.1); CARBON DIOXIDE 27.3 mmol/L (21.0-32.0); CREATININE - SERUM 2.6 mg/dL (0.6-1.3); POTASSIUM - SERUM 4.1 mmol/L (3.5-5.1)
[2019-10-19 07:00] LABS: BACTERIA FEW /hpf (NEGATIVE); EPITHELIAL CELLS NSEEN /hpf (0-5); RED CELLS - URINE 0-5 /hpf (0-5); WHITE CELLS - URINE 0-5 /hpf (NEGATIVE)
--- NOTE | 2019-10-19 08:29 | NUR ---
PT EATING BREAKFAST, NO NEEDS NOTED, FALL PRECAUTIONS IN PLACE, FLUIDS/CALL LIGHT WITHIN REACH
[2019-10-19 08:51] VITALS: BP 107/38
--- NOTE | 2019-10-19 10:58 | NUR ---
patient admitted to rehab from acute floor. dr. navarro is patient pcp. she is a client of [facility]. dme at home is a rollator, bedside commode, shower chair and a recliner lift. discharge plans are for her to return home. will continue to follow with patient.
[2019-10-19 12:34] VITALS: Ht 157.5 cm; Wt 86.8 kg
--- NOTE | 2019-10-19 19:15 | NUR ---
PM ROUNDS MADE, PT UP IN CHAIR AT THIS TIME, INFORMED PT THAT I WILL BE BACK SHORTLY TO DO ASSESSMENT, PT VERBALIZES UNDERSTANDING, DENIES NEEDS AT THIS TIME
--- NOTE | 2019-10-19 20:30 | NUR ---
PT READY TO GET BACK INTO BED, PT TO BED WITH ASSISTANCE, DENIES FURTHER NEEDS, FALL PRECAUTIONS IN PLACE
--- NOTE | 2019-10-19 21:18 | NUR ---
ADM 2100 MEDS PER MD ORDERS, SEE EMAR, INFORMED PT THAT I WILL CHECK BLOOD SUGAR SHORTLY, ASSESSMENT PER FLOW SHEET, PT DENIES NEEDS OR PAIN
[2019-10-19 21:50] VITALS: BP 124/46
--- NOTE | 2019-10-19 22:49 | NUR ---
CHRISTIANO, EXTRACTOR PULLER NURSE OBTAINED FSBS, ADM INSULIN PER MD ORDERS, SEE EMAR, PT PROVIDED WARM BLANKET AND JASMEET CRACKERS, DENIES FURTHER NEEDS, FALL PRECAUTIONS IN PLACE
--- NOTE | 2019-10-20 03:33 | NUR ---
PT JUNIOR ACCOUNT EXECUTIVE LIGHT, CHANGED PILLOWS OUT, REPOSITIONED PT, PT DENIES FURTHER NEEDS, FALL PRECAUTIONS IN PLACE
[2019-10-20 05:30] VITALS: BP 119/41
--- NOTE | 2019-10-20 05:30 | NUR ---
PT RESTING WITH EYES CLOSED, AROUSES TO SOFT VERBAL STIMULATION, BP CHECKED, ADM 0600 MEDS PER MD ORDERS, SEE EMAR, ULRICH CATH EMPTIED, PT UP TO BEDSIDE SCALE, PT BACK TO BED, FRESH H20 SERVED, DENIES NEED FOR PAIN MED AT THIS TIME, FALL PRECAUTIONS IN PLACE
--- NOTE | 2019-10-20 06:46 | NUR ---
ADM 0700 MED PO PER MD ORDERS, AND OBTAINED FSBS, ADM INSULIN PER MD ORDERS, SEE EMAR, PT DENIES NEEDS AT THIS TIME, FALL PRECAUTIONS IN PLACE
[2019-10-20 08:20] VITALS: BP 128/44
[2019-10-20 09:38] LABS: BASOPHILS 0.2 % (0-2); EOSINOPHILS 3.5 % (0-7); HEMATOCRIT 28.1 % (36.0-48.0); HEMOGLOBIN 8.7 g/dL (12-16); IMMATURE GRANULOCYTES 0.4 % (0-5); LYMPHOCYTES 10.1 % (15-50); MCH 27.8 pg (26.0-34.0); MCV 89.8 fL (80.0-100.0); MEAN PLATELET VOLUME 11.2 fL (7.4-10.4); MONOCYTES 8.5 % (2-11); NEUTROPHILS 77.3 % (40-80); PLATELET COUNT 267 10x3/uL (130-400); RBC 3.13 10x6/uL (4.00-5.40); RDW 16.3 % (11.5-14.5)
[2019-10-20 09:52] LABS: ANION GAP 15.9 mmol/L (8-16); CALCIUM 8.1 mg/dL (8.5-10.1); CARBON DIOXIDE 24.4 mmol/L (21.0-32.0); POTASSIUM - SERUM 4.3 mmol/L (3.5-5.1)
[2019-10-20 09:54] LABS: CREATININE - SERUM 3.4 mg/dL (0.6-1.3)
--- NOTE | 2019-10-20 20:15 | NUR ---
AWAKE AND ALERT. RESTING IN BED. BILATERAL LOWER EXTREMTIIES SWOLLEN WITH BLISTERS SOME POPPED. DRESSINGS CHANGED TO AREAS ON LEFT AND RIGHT LOWER LEGS OF POPPED BLISTER SITES PER DAY NURSE. RESPIRATIONS UNLABORED. NO DISTRESS NOTED. CALL LIGHT IN REACH.
[2019-10-20 21:42] VITALS: BP 151/55
--- NOTE | 2019-10-20 22:15 | NUR ---
AWAKE RESTING IN BED WATCHING TV. NO DISTRESS NOTED.
--- NOTE | 2019-10-21 00:05 | NUR ---
SITTING ON SIDE OF BED TO RELIEVE BACK PAIN. RESPIRATIONS UNLABORED. STATES SHE IS JUST TIRED OF THE BED.
--- NOTE | 2019-10-21 02:49 | NUR ---
LYING BACK IN BED NOW WITH EYES CLOSED AND RESPIRAITONS UNLABORED. NO DISTRESS NOTED.
--- NOTE | 2019-10-21 04:16 | NUR ---
MEDICATED FOR BACK PAIN. TURNED AND REPOSITIONED FOR COMFORT.
--- NOTE | 2019-10-21 05:59 | NUR ---
REPOSITIONED AGAIN. ULRICH EMPITED. URINE DARK WITH SEDIMENT. NO NEEDS VOICED
[2019-10-21 08:00] VITALS: BP 129/49
--- NOTE | 2019-10-21 08:00 | NUR ---
PT RESTING IN BED WITH EYES OPEN CALL LIGHT IN REACH WILL MONITER
--- NOTE | 2019-10-21 11:58 | NUR ---
CARE TEAM MEETING: PATIENT IS NEW TO UNIT AND WILL BE RA AT NEXT MEETING. WILL CONTINUE TO FOLLOW WITH PATIENT.
--- NOTE | 2019-10-21 12:00 | NUR ---
I have reviewed this patient and I concur with the Shift Assessment completed by the Licensed Practical Nurse today this shift.
--- NOTE | 2019-10-21 17:20 | NUR ---
PT RESTING IN BED WITH EYES OPEN CALL LIGHT IN REACH WILL MONITER
[2019-10-21 21:45] VITALS: BP 113/66
--- NOTE | 2019-10-22 00:15 | NUR ---
RESTING IN BED WITH NO DISTRESS NOTED.
--- NOTE | 2019-10-22 03:32 | NUR ---
CONTINUES SLEEPING WITH RESPIRAITONS UNLABORED. NO DISTRESS NOTED. CALL LIGHT IN REACH.
--- NOTE | 2019-10-22 06:17 | NUR ---
BLOOD SUGAR 68. SNACK GIVEN. ALERT AND ORIENTED. SKIN WARM AND DRY.
[2019-10-22 07:27] LABS: BASOPHILS 0.3 % (0-2); HEMATOCRIT 27.6 % (36.0-48.0); HEMOGLOBIN 8.3 g/dL (12-16); IMMATURE GRANULOCYTES 0.4 % (0-5); MCHC 30.1 g/dL (31.0-37.0); MCV 89.9 fL (80.0-100.0); MEAN PLATELET VOLUME 11.7 fL (7.4-10.4); MONOCYTES 7.6 % (2-11); NEUTROPHILS 76.7 % (40-80); PLATELET COUNT 238 10x3/uL (130-400); RBC 3.07 10x6/uL (4.00-5.40); RDW 16.7 % (11.5-14.5); WBC 7.6 10x3/uL (4.8-10.8)
[2019-10-22 07:46] LABS: ANION GAP 17.5 mmol/L (8-16); CARBON DIOXIDE 23.9 mmol/L (21.0-32.0); CREATININE - SERUM 3.5 mg/dL (0.6-1.3); POTASSIUM - SERUM 4.4 mmol/L (3.5-5.1)
[2019-10-22 07:55] LABS: CALCIUM 7.5 mg/dL (8.5-10.1)
[2019-10-22 08:00] VITALS: BP 120/66
--- NOTE | 2019-10-22 14:08 | NUR ---
NUTRITION F/U CHART REVIEWED. PT TOLERATING DIABETIC DIET WITH ~ 50% INTAKE RECENT MEALS. RECENT BM NOTED. WILL CONTINUE TO PROVIDE DIET, MONITOR PO INTAKE. RD FOLLOWING
--- NOTE | 2019-10-22 18:45 | NUR ---
PATIENT SITTING UP IN WC. ATE DINNER, NO COMPLAINTS. ULRICH INTACT. CALL LIGHT WITHIN REACH.
[2019-10-22 20:19] VITALS: BP 127/50
--- NOTE | 2019-10-22 20:35 | NUR ---
AWAKE AND ALERT. SITTING IN WHEELCHAIR WITH RESPIRAITONS UNLABORED. NO DISTRESS NOTED. CALL LIGHT IN REACH
--- NOTE | 2019-10-23 05:28 | NUR ---
QUIET HOURS. NO ACUTE CHANGES IN CONDITION THIS SHIFT. RESTING IN BED, RESPIRATIONS UNLABORED. MOJGAN PATENT, CALL LIGHT IN REACH.
[2019-10-23 06:56] LABS: ANION GAP 16.7 mmol/L (8-16); CALCIUM 7.8 mg/dL (8.5-10.1); CARBON DIOXIDE 22.8 mmol/L (21.0-32.0); CREATININE - SERUM 3.4 mg/dL (0.6-1.3); POTASSIUM - SERUM 4.5 mmol/L (3.5-5.1)
[2019-10-23 08:00] VITALS: BP 113/33
--- NOTE | 2019-10-23 16:12 | NUR ---
LAYING IN BED WITH HEAD COVERED UP. NO S/S DISTRESS OR NEEDS. F/C DRAINING CLOUDY URINE. CALL LIGHT IN REACH. BED IN LOWEST POSITION. SIDE RAILS UP X2.
--- NOTE | 2019-10-23 19:00 | NUR ---
PT AWAKE ALERT LAYING IN BED WATCHING TV. DENIES NEEDS AT THIS TIME. NO S/S OF DISTRESS NOTED. PT C/O OF PAIN TO HER LOWER BACK AND HIP AREA. STATES SHE JUST NEEDS TO BE REPOSITIONED WITH ASSISTANCE. REPOSITONED ONTO LEFT SIDE. ULRICH PRESENT, AND PATENT FLOWING TO GRAVITY. BED LOW SIDE RAILS RAISED X2 AND CALL LIGHT WITHIN REACH. WILL CONTINUE TO MONITOR.
[2019-10-23 20:40] VITALS: BP 150/45
--- NOTE | 2019-10-23 21:03 | NUR ---
FSBG 221, ADMINISTERED PM MEDS AND INSULIN PER ORDER. PROVIDED PT WITH PM SNACK. DENIES OTHER NEEDS AT THIS TIME.
--- NOTE | 2019-10-24 03:37 | NUR ---
PT RESTING WITH COVERS PULLED UP OVER HER HEAD. BED LOW, CALL LIGHT IN REACH, AND SIDE RAILS RAISED X2. ASSISTED PT IN TURNING ONTO RT SIDE. DENIES OTHER NEEDS AT THIS TIME.
[2019-10-24 08:00] VITALS: BP 167/73
--- NOTE | 2019-10-24 13:32 | NUR ---
PLACED BACK IN BED AFTER SITTING UP FOR LUNCH. LEGS STILL HAVE 4+ EDEMA IN THEM F/C DRAINING CLOUDY URINE. HER GAIT IS SHUFFELING AND SHE TRANSFERS WITH MOD ASST.
--- NOTE | 2019-10-24 19:53 | NUR ---
PT ON PHONE, NO NEEDS NOTED, FALL PRECAUTIONS IN PLACE, FLUIDS/CALL LIGHT WITHIN REACH
--- NOTE | 2019-10-25 02:38 | NUR ---
PT ASLEEP AROUSES EASILY TO VOICE, NO NEEDS NOTED, FALL PRECAUTIONS IN PLACE, ALLOWED FLUIDS/CALL LIGHT WITHIN REACH
--- NOTE | 2019-10-25 04:29 | NUR ---
PT ASLEEP AROUSES EASILY TO VOICE, NO NEEDS NOTED, FALL PRECAUTIONS IN PLACE, ALLOWED FLUIDS/CALL LIGHT WITHIN REACH
[2019-10-25 07:33] LABS: BASOPHILS 0.2 % (0-2); EOSINOPHILS 3.1 % (0-7); HEMATOCRIT 27.3 % (36.0-48.0); HEMOGLOBIN 8.3 g/dL (12-16); IMMATURE GRANULOCYTES 0.6 % (0-5); LYMPHOCYTES 15.6 % (15-50); MCH 27.3 pg (26.0-34.0); MCHC 30.4 g/dL (31.0-37.0); MCV 89.8 fL (80.0-100.0); MEAN PLATELET VOLUME 12.2 fL (7.4-10.4); MONOCYTES 12.3 % (2-11); NEUTROPHILS 68.2 % (40-80); PLATELET COUNT 261 10x3/uL (130-400); RBC 3.04 10x6/uL (4.00-5.40); WBC 5.1 10x3/uL (4.8-10.8)
[2019-10-25 08:00] VITALS: BP 150/76
[2019-10-25 08:03] LABS: ANION GAP 18.4 mmol/L (8-16); CALCIUM 7.8 mg/dL (8.5-10.1); CARBON DIOXIDE 22.5 mmol/L (21.0-32.0); CREATININE - SERUM 3.2 mg/dL (0.6-1.3); POTASSIUM - SERUM 4.9 mmol/L (3.5-5.1)
--- NOTE | 2019-10-25 14:01 | NUR ---
IN THERAPY. F/C HAS BEEN CLAMPED OFF FOR 1.75 HRS AND PT PASSED URINE AROUND F/C AND HER CLOTHES WERE WET. F/C UNCLAMPED EARLY. HER VISION IS POOR AND SHE NEEDS ASST TO TRANSFER BACK AND FORTH. INCISIONS ON ABD HEALING WITH NO S/S INFECTION. STILL HAS 4+ EDEMA TO BLE .
--- NOTE | 2019-10-25 14:15 | NUR ---
CLINICAL UPDATES FAXED TO [employer] , AUTH. # [id number], WITH CONFORMATION RECIEVED. WILL CONTINUE TO FOLLOW WITH PATIENT.
--- NOTE | 2019-10-25 16:29 | NUR ---
F/C DC'D WITH 900ML IN BAG. URINE SMELLED STRONG AND WAS DARK COLORED YELLOW.
--- NOTE | 2019-10-25 20:45 | NUR ---
PT IN WC, NO NEEDS NOTED,FALL PRECAUTIONS IN PLACE FLUIDS/CALL LIGHT WITHIN REACH, HELPED PT INTO BED, GAVE MENU TO FILL OUT
[2019-10-25 21:40] VITALS: BP 144/63
--- NOTE | 2019-10-26 01:20 | NUR ---
PT ASLEEP AWAKENS EASILY TO VOICE, NO NEEDS NOTED, FALL/SAFETY PRECAUTIONS IN PLACE, FLUIDS/CALL LIGHT WITHIN REACH
[2019-10-26 08:00] VITALS: BP 126/46
--- NOTE | 2019-10-26 08:00 | NUR ---
SHIFT ASSMT COMPLETED.CL IN REACH.
[2019-10-26 09:29] LABS: ANION GAP 15.3 mmol/L (8-16); CALCIUM 8.8 mg/dL (8.5-10.1); CARBON DIOXIDE 23.2 mmol/L (21.0-32.0); POTASSIUM - SERUM 4.5 mmol/L (3.5-5.1)
--- NOTE | 2019-10-26 09:53 | NUR ---
Nutrition Follow-up: Chart reviewed. Noted that patient may need to be dialyzed for ARF on CKD4. Diet: Diabetic PO intake: ~78% average x last 9 meals; She reports that her appetite is better but she complains of pain at this time. She states that she likes and is ordering Boost on her meal trays. Last BM: 10/21/19. WT: 191# (10/26/19); Admit Wt: 175# (10/18/19) Meds noted: lantus, SSI Labs noted: BUN 145(H), Cr 3.2(H), GFR 15(L), Ca 7.8(L), POC Glu 63(L) Recommend continue current diet. Enocuraged PO intake. RD following.
--- NOTE | 2019-10-26 12:00 | NUR ---
SITTING UP IN CHAIR EATING LUNCH.
--- NOTE | 2019-10-26 16:00 | NUR ---
VISITING,CL IN REACH.UP IN WC.
[2019-10-26 22:02] VITALS: BP 183/70
--- NOTE | 2019-10-27 02:54 | NUR ---
PT ASLEEP AROUSES EASILY TO VOICE, NO IMMEDIATE NEEDS NOTED,FALL PRECAUTIONS IN PLACE, FLUIDS/CALL LIGHT WITHIN REACH
[2019-10-27 06:54] LABS: ANION GAP 17.8 mmol/L (8-16); CALCIUM 8.3 mg/dL (8.5-10.1); CARBON DIOXIDE 21.8 mmol/L (21.0-32.0); CREATININE - SERUM 2.6 mg/dL (0.6-1.3); POTASSIUM - SERUM 4.6 mmol/L (3.5-5.1)
[2019-10-27 08:00] VITALS: BP 157/50
--- NOTE | 2019-10-27 08:00 | NUR ---
SHIFT ASSMT COMPLETED.
--- NOTE | 2019-10-27 13:34 | NUR ---
CARE TEAM MEETING: DUE TO PENDING SURGERY PATIENT DISCHARGED FROM REHAB AND ADMITTED TO ACUTE FLOOR.
--- NOTE | 2019-10-27 14:40 | NUR ---
CALL RECIEVED FROM .ASKED WHEN PT ATE LAST.STATED HE WILL DO SURGERY TOMORROW.
--- NOTE | 2019-10-27 18:40 | NUR ---
DISCHARGED TO ACUTE FLOOR.ROOM 2106 ARF.
== END 2019-10-27 19:36 | disposition short-term general hospital (02) | DRG 683 ==
LOC: D.REHAB 16:29 → D.M2 10-27 17:31 → D.REHAB 10-27 17:58
PROVIDERS: Internal Medicine Nephrology; ADMIT Emergency Medicine; ATTEND Emergency Medicine
DX: I12.9 Hypertensive chronic kidney disease with stage 1 through stage 4 chronic kidney disease, or unspecified chronic kidney disease (principal); N17.9 Acute kidney failure, unspecified; J81.1 Chronic pulmonary edema; I69.354 Hemiplegia and hemiparesis following cerebral infarction affecting left non-dominant side; E11.22 Type 2 diabetes mellitus with diabetic chronic kidney disease; D64.9 Anemia, unspecified; M10.9 Gout, unspecified; E03.9 Hypothyroidism, unspecified; R53.83 Other fatigue; R53.1 Weakness; E66.9 Obesity, unspecified; E78.5 Hyperlipidemia, unspecified; K21.9 Gastro-esophageal reflux disease without esophagitis; N18.3 Chronic kidney disease, stage 3 (moderate); R60.1 Generalized edema; R06.00 Dyspnea, unspecified; E11.40 Type 2 diabetes mellitus with diabetic neuropathy, unspecified; E11.65 Type 2 diabetes mellitus with hyperglycemia; E87.5 Hyperkalemia

== ENCOUNTER 2019-10-27 18:17 | Inpatient (IN) | payer OTHER ==
[~2019-10-27] VITALS: Ht 157.5 cm; Wt 80.0 kg
[~2019-10-27 18:17] MED LIST changes: -ZYRTEC10 MG; +ZYRTEC10 MG PO
--- NOTE | 2019-10-27 19:30 | NUR ---
RECEIVED PATIETN TO ROOM 2106 VIA WHEELCHAIR FROM REHAB. PATIENT IS AAXO4, UP WITH WALKER AND STANDBY ASSIST. NO S/S OF DISTRESS OBSERVED, RR EVEN AND UNLABORED ON ROOM AIR. PATIENT DENIES NEEDS AT THIS TIME. CL IN REACH, BED LOCKED AND LOWERED. WILL CTM.
--- NOTE | 2019-10-27 21:50 | NUR ---
ADMINISTERED HS WITHOUT DIFFICULTY. LANTUS ADMINISTERED PER ORDER, HUMALOG ADMINISTERED PER SLIDING SCALE. ASSISTED PATIENT TO BATHROOM AND BACK TO BED. PATIENT DENIES FURTHER NEEDS AT THIS TIME. INFORMED PATIENT OF NPO STATUS AFTER MIDNIGHT DUE TO SCHEDULED SURGERY IN THE AM. CL IN REACH, BED LOCKED AND LOWERED. WILL CTM.
[2019-10-28 04:00] VITALS: BP 175/48
[2019-10-28 06:47] VITALS: BMI 35.1
[2019-10-28 08:22] LABS: BASOPHILS 0.5 % (0-2); EOSINOPHILS 3.4 % (0-7); HEMATOCRIT 27.4 % (36.0-48.0); HEMOGLOBIN 8.3 g/dL (12-16); IMMATURE GRANULOCYTES 0.8 % (0-5); LYMPHOCYTES 22.9 % (15-50); MCH 27.3 pg (26.0-34.0); MCHC 30.3 g/dL (31.0-37.0); MCV 90.1 fL (80.0-100.0); MEAN PLATELET VOLUME 11.9 fL (7.4-10.4); MONOCYTES 7.8 % (2-11); NEUTROPHILS 64.6 % (40-80); PLATELET COUNT 276 10x3/uL (130-400); RBC 3.04 10x6/uL (4.00-5.40); RDW 16.9 % (11.5-14.5); WBC 5.9 10x3/uL (4.8-10.8)
[2019-10-28 08:35] LABS: ALBUMIN 2.8 g/dL (3.4-5.0); BILIRUBIN - TOTAL 0.25 mg/dL (0.2-1.3); CARBON DIOXIDE 23.4 mmol/L (21.0-32.0); CREATININE - SERUM 2.4 mg/dL (0.6-1.3); POTASSIUM - SERUM 4.4 mmol/L (3.5-5.1); PROTEIN - SERUM 6.9 g/dL (6.4-8.2)
--- NOTE | 2019-10-28 08:43 | NUR ---
LAB CALLED BS 56. GAVE 1 AMP OF D50. WILL CONTINUE TO MONITOR.
[2019-10-28 09:00] VITALS: BP 170/48
--- NOTE | 2019-10-28 09:20 | NUR ---
FSBS NOW 95. WILL CONTINUE TO MONITOR. EKG DONE AND IN CHART.
[2019-10-28 10:18] VITALS: BMI 35.0
[2019-10-28 11:00] VITALS: BP 185/62
--- NOTE | 2019-10-28 11:07 | NUR ---
FSBS 80. GAVE AN 25ML OF D50. WILL CONTINUE MONITOR. CALLED SX AND SPOKE WITH KEN AND SHE STATES SHE WILL TELL ANESTHESIA AND CALL ME BACK. I VEBRALIZED UNDERSTANDING.
--- NOTE | 2019-10-28 11:32 | NUR ---
PT TAKEN TO SX VIA BED.
[2019-10-28 12:26] VITALS: Ht 157.5 cm; Wt 80.0 kg
[2019-10-28 12:42] LABS: BACTERIA MANY /hpf (NEGATIVE); BILIRUBIN NEGATIVE (NEGATIVE); EPITHELIAL CELLS RARE /hpf (0-5); GLUCOSE NEGATIVE (NEGATIVE); KETONE NEGATIVE (NEGATIVE); NITRITE NEGATIVE (NEGATIVE); SPECIFIC GRAVITY 1.015 (1.005-1.020); UROBILINOGEN NORMAL (NORMAL); WHITE CELLS - URINE >50 /hpf (NEGATIVE)
--- NOTE | 2019-10-28 13:27 | NUR ---
JAY SPIVEY IN RECOVERY STATES PT HAS A LEFT CHEST HEMOSPLIT PLACEMENT BY . PT RECEIVED NO NARCOTICS BY ANESTHESIA AND IS ALERT AND ORIENTED AND IS NOT C/O ANY PAIN. SHE STATES PT'S BP WAS 170 BUT NOW IS 140. I VERBALIZED UNDERSTANDING. CALLED AND SPOKE WITH GUADALUPE SPIVEY IN DIALYSIS SHE STATES TO BRING PT DOWN SHE GETS BACK FROM HD.
--- NOTE | 2019-10-28 13:29 | MORECARE ---
CASE MANAGEMENT DISCHARGE SUMMARY PATIENT: ADRIA KHALIL AMARIS UNIT: [id number] ADM DATE: 10/27/19 AGE: 74 : 46 SEX: F ROOM/BED: D.210 AUTHOR: ARMANDO CHAPPELL PHYSICIAN: REFERRING PHYSICIAN: HARISH GOVEA MD DATE OF SERVICE: 10/28/19 Discharge Plan Patient Name: ADRIA KHALIL Facility: [facility]:[place] : 1945 Planned Disposition: Anticipated Discharge Date: Discharge Date: Expected LOS: Initial Reviewer: [email or web address] Initial Review Date: 10/27/2019 Generated: 10/28/19 2:28 pm DCP- Discharge Planning Updated by [email or web address]: Alexandra Lopez on 10/28/19 12:[address] CM notified Ena Hdz of need for HD chair and time. All labs are pending. HemoSplit will be placed 10/28. Patient Name: ADRIA KHALIL Page [phone] at 1329 All edits/amendments must be made on the electronic document DICTATION DATE: 10/28/191327 911 EMERGENCY DISPATCHER: ROSMERY 10/28/19 1328 RPT#: [id number] DC DATE: STATUS: ADM IN [facility] [address] [place] [address] END OF REPORT
--- NOTE | 2019-10-28 13:38 | MORECARE ---
CASE MANAGEMENT DISCHARGE SUMMARY PATIENT: ADRIA VÁSQUEZ AMARIS UNIT: [id number] ADM DATE: 10/27/19 AGE: 74 : 46 SEX: F ROOM/BED: D.2107 AUTHOR: ARMANDO CHAPPELL PHYSICIAN: REFERRING PHYSICIAN: HARISH GOVEA MD DATE OF SERVICE: 10/28/19 Discharge Plan Patient Name: ADRIA VÁSQUEZ Facility: [facility]:[place] : 1945 Planned Disposition: Anticipated Discharge Date: Discharge Date: Expected LOS: Initial Reviewer: [email or web address] Initial Review Date: 10/27/2019 Generated: 10/28/19 2:37 pm DCP- Discharge Planning Updated by [email or web address]: Alexandra Lopez on 10/28/19 12:[address] CM met with patient to discuss initial discharge planning. Patient is in agreement to proceed with the assessment. Patient reports that she lives at home independently with her , Fahad [phone] or [phone]. Patient is alert/oriented. Stairs/steps: PCP: Dr. Baker. Pharmacy: [facility]. Patient states she has been able to obtain all of her prescribed medications. HHS: No. DME: WC, RW, BSC, shower chair. Patient gives permission to speak with family members. Patient is Independent with all ADL's, medication management HEAD SAWYER..CM discussed the availability of HH, Rehab, SNF, OP Therapy, DME services. Patient denies the need for additional services at this time and feels safe returning to previous environment. Patient was recently hospitalized, then to [facility]. Patient denies the use of community resources HEAD SAWYER. Transportation at time of discharge: Spouse Or daughter Clarisa Arriaga [phone]. CM will follow ad assist with further DC needs PRN. DCP- Discharge Planning Updated by [email or web address]: Alexandra Lopez on 10/28/19 12:[address] CM notified Ena Hdz of need for HD chair and time. All labs are pending. HemoSplit will be placed 10/28. DCPIA - Discharge Planning Initial Assessment Updated by [email or web address]: Alexandra Lopez on 10/28/19 1:33 pm * Is the patient Alert and Oriented? Yes * PCP Dr. Baker * Pharmacy [facility] * Preadmission Environment Home with Family * ADLs Independent * Equipment Cane * Other Equipment RW, SHOWER CHAIR, RW, ROLLATOR, LIFE CHAIR * List name and contact numbers for known caregivers / representatives who currently or will assist patient after discharge: Clarisa Bart (dtr) [phone] Liam Vásquez (spouse) [phone] * Verbal permission to speak to the caregivers and representatives has been obtained from the patient. Yes * Community resources currently utilized None * Additional services required to return to the preadmission environment? Yes * Can the patient safely return to the preadmission environment? Yes * Has this patient been hospitalized within the prior 30 days at any hospital? Yes Last DP export: 10/28/19 12:29 pm Patient Name: ADRIA VÁSQUEZ Page [phone] at 1338 All edits/amendments must be made on the electronic document DICTATION DATE: 10/28/197 .NET PROGRAMMER: ROSMERY 10/28/19 1337 RPT#: [id number] DC DATE: STATUS: ADM IN [facility] [address] [place] [address] END OF REPORT
[2019-10-28 13:39] VITALS: BP 157/61
--- NOTE | 2019-10-28 14:10 | NUR ---
PT RETURNED FROM SX VIA BED. ALERT AND ORIENTED. ON ROOM AIR. VS STABLE. PT'S AT BEDSIDE. PT TAKEN TO DIALYSIS VIA BED AND GIVEN SNACKS.
--- NOTE | 2019-10-28 15:35 | NUR ---
PT IN DIALYSIS. PT STILL HASN'T ATE ANYTHING. CHECKED FSBS 87. AFIA SPIVEY STATED SHE WILL MAKE SURE PT EATS HER JASMEET CRACKERS AND JELLO. I VERBALIZED UNDERSTANDING.
--- NOTE | 2019-10-28 15:56 | NUR ---
I have reviewed this patient and I concur with the Shift Assessment completed by the Licensed Practical Nurse today this shift.
--- NOTE | 2019-10-28 15:59 | NUR ---
I have reviewed this patient and I concur with the Shift Assessment completed by the Licensed Practical Nurse today this shift.
--- NOTE | 2019-10-28 17:13 | NUR ---
AFIA SPIVEY IN DIALYSIS CALLED AND STATES PT HAS BEEN HYPERTENSIVE ALL THROUGH DIALYSIS BUT SHE ID REMOVE 2.5L OFF. SHE STATES LEFT CHEST HEMOSPLIT IS NOW OOZING BLOOD SO WHEN PT RETURNS TO FLOOR TO NOT CHANGE DRESSING AND LET IT CLOT OFF AND CHANGE IT IN A COUPLE DAYS AND PLACE AN ICE PACK ON IT. I VERBALIZED UNDERSTANDING.
[2019-10-28 17:19] VITALS: BP 171/46
--- NOTE | 2019-10-28 17:19 | NUR ---
SPOKE WITH JEET ALVAREZ ABOUT PT BEING HYPERTENSIVE AND LAST BP 171/46. I STATED PT WAS TAKING CLONIDINE 0.2MG Q8H AT HOME. SHE STATES TO ORDER CLONODIEN Q8HP SBP > 160. I VERBALIZED UNDERSTANDING.
--- NOTE | 2019-10-28 17:35 | NUR ---
RECHECKED FSBS 160 WILL CONTINUE TO MONITOR. 4X4 AND TAPE PLACED OVER LEFT IJ TO HOLD PRESSURE. ICE PACK PLACED ON LEFT CHEST. CALL LIGHT IN REACH. WILL CONTINUE TO MONITOR.
--- NOTE | 2019-10-28 19:15 | NUR ---
PT IS SITTING UP IN BED FINISHING HER DINNER. SHE IS BLEEDING FROM THE LEFT HEMASPLIT. REINFORCED WITH PRESSURE BANDAGE AND PLACED SAND BAG OVER IT. WILL CONTINUE TO MONITOR. PT DENIES PAIN OR NEEDS. BED IS LOW AND CALL LIGHT WITHIN REACH.
[2019-10-28 21:11] VITALS: BP 180/54
[2019-10-29 00:32] VITALS: BP 139/45
[2019-10-29 04:09] LABS: BASOPHILS 0.4 % (0-2); HEMOGLOBIN 8.1 g/dL (12-16); IMMATURE GRANULOCYTES 1.5 % (0-5); LYMPHOCYTES 14.7 % (15-50); MCH 27.3 pg (26.0-34.0); MCV 90.9 fL (80.0-100.0); MEAN PLATELET VOLUME 11.7 fL (7.4-10.4); MONOCYTES 11.1 % (2-11); NEUTROPHILS 70.3 % (40-80); PLATELET COUNT 282 10x3/uL (130-400); RBC 2.97 10x6/uL (4.00-5.40); RDW 16.7 % (11.5-14.5)
[2019-10-29 04:10] LABS: WBC 8.1 10x3/uL (4.8-10.8)
[2019-10-29 04:22] LABS: ALBUMIN 2.7 g/dL (3.4-5.0); ANION GAP 12.3 mmol/L (8-16); BILIRUBIN - TOTAL 0.28 mg/dL (0.2-1.3); CALCIUM 8.4 mg/dL (8.5-10.1); CREATININE - SERUM 2.2 mg/dL (0.6-1.3); POTASSIUM - SERUM 4.3 mmol/L (3.5-5.1); PROTEIN - SERUM 6.6 g/dL (6.4-8.2)
[2019-10-29 04:51] VITALS: BP 144/46
--- NOTE | 2019-10-29 06:25 | NUR ---
WOUND CARE CONSULT ORDER PUT IN FOR PTS BILATERAL LOWER EXREMITY WOUNDS/BLISTERS. THE CURRENT DRESSING IS [facility]. I HAD JARROD MORENO CHECK THE ORDERS AND NOTES WELL FOR ORDERS BUT WE WERE UNABLE TO LOCATE ANY.
[2019-10-29 08:13] LABS: HEPATITIS C ANTIBODY 0.1 (0.0-0.9)
[2019-10-29 09:00] VITALS: BP 167/72
[2019-10-29 11:00] VITALS: BP 182/55
--- NOTE | 2019-10-29 12:11 | NUR ---
REPORTED TO ME BY FOAM RUBBER MOLDER BP 182/55. CLONIDINE PRN GIVEN. WILL CONTINUE TO MONITOR.
--- NOTE | 2019-10-29 12:36 | NUR ---
RESTS IN BED WITH CALL LIGHT IN REACH. NO NEEDS VOICED AT THIS TIME. WILL MONITOR.
--- NOTE | 2019-10-29 13:05 | NUR ---
PT WANTING MIRALX FOR CONSTIPATION. SPOKE WITH DR. CROFT AND HE STATES ORDER MIRALAX 17G DAILY. I VERBALIZED UNDERSTANDING.
--- NOTE | 2019-10-29 14:45 | NUR ---
Rehab Note- Acute Inpatient Rehab prescreen order received. The patient just transferred from our rehab unit with plans to discharge home today on completed treated plan. The patient has manged care insurance of [employer] and will require a new PreAuth for inpatient acute rehab stay. Spoke with Erika Vargas CM about this and will need OT & PT Evals for PreAuth process. Will follow at this time. Thank you for this referral! Altagracia Garcia RN [facility] Rehab, Clinical Liaison
[2019-10-29 15:00] VITALS: BP 156/52
--- NOTE | 2019-10-29 16:41 | NUR ---
bilateral leg dressings changed as ordered. pt taken to dialysis via bed.
--- NOTE | 2019-10-29 16:47 | MORECARE ---
CASE MANAGEMENT DISCHARGE SUMMARY PATIENT: ADRIA VÁSQUEZ AMARIS UNIT: [id number] ADM DATE: 10/27/19 AGE: 74 : 47 SEX: F ROOM/BED: D.0522 AUTHOR: ARMANDO CHAPPELL PHYSICIAN: REFERRING PHYSICIAN: HARISH GOVEA MD DATE OF SERVICE: 10/29/19 Discharge Plan Patient Name: ADRIA VÁSQUEZ Facility: [facility]:[place] : 1945 Planned Disposition: Anticipated Discharge Date: Discharge Date: Expected LOS: Initial Reviewer: [email or web address] Initial Review Date: 10/27/2019 Generated: 10/29/19 5:46 pm Comments DCP- Discharge Planning Updated by [email or web address]: Alexandra Lopze on 10/29/19 3:[address] Ena Hdz, with [facility] is arranging a HD chair and time. Patient has requested ORD for treatments. DCP- Discharge Planning Updated by [email or web address]: Alexandra Lopez on 10/28/19 12:[address] CM met with patient to discuss initial discharge planning. Patient is in agreement to proceed with the assessment. Patient reports that she lives at home independently with her , Fahad ([phone] or [phone]. Patient is alert/oriented. Stairs/steps: PCP: Dr. Baker. Pharmacy: [email or web address]. Patient states she has been able to obtain all of her prescribed medications. HHS: No. DME: WC, RW, BSC, shower chair. Patient gives permission to speak with family members. Patient is Independent with all ADL's, medication management QUALITY PROCESS AUDITOR..CM discussed the availability of HH, Rehab, SNF, OP Therapy, DME services. Patient denies the need for additional services at this time and feels safe returning to previous environment. Patient was recently hospitalized, then to [facility]. Patient denies the use of community resources QUALITY PROCESS AUDITOR. Transportation at time of discharge: Spouse Or daughter Clarisa Arriaga [phone]. CM will follow ad assist with further DC needs PRN. DCP- Discharge Planning Updated by [email or web address]: Alexandra Lopez on 10/28/19 12:[address] CM notified Ena Hdz of need for HD chair and time. All labs are pending. HemoSplit will be placed 10/28. DCPIA - Discharge Planning Initial Assessment Updated by [email or web address]: Alexandra Lopez on 10/28/19 1:33 pm * Is the patient Alert and Oriented? Yes * PCP Dr. Baker * Pharmacy [facility] * Preadmission Environment Home with Family * ADLs Independent * Equipment Cane * Other Equipment RW, SHOWER CHAIR, RW, ROLLATOR, LIFE CHAIR * List name and contact numbers for known caregivers / representatives who currently or will assist patient after discharge: Clarisa Arriaga (dtr) [phone] Liam Vásquez (spouse) [phone] * Verbal permission to speak to the caregivers and representatives has been obtained from the patient. Yes * Community resources currently utilized None * Additional services required to return to the preadmission environment? Yes * Can the patient safely return to the preadmission environment? Yes * Has this patient been hospitalized within the prior 30 days at any hospital? Yes Last DP export: 10/28/19 12:38 pm Patient Name: ADRIA VÁSQUEZ Page [phone] at 1647 All edits/amendments must be made on the electronic document DICTATION DATE: 10/29/191645 GRAD INTERN: ROSMERY 10/29/191645 RPT#: [id number] DC DATE: STATUS: ADM IN [facility] [address] [place] [address] END OF REPORT
--- NOTE | 2019-10-29 19:33 | NUR ---
IN DIALYSIS ATHTIS TIME.
[2019-10-30 05:16] LABS: BASOPHILS 0.2 % (0-2); EOSINOPHILS 2.2 % (0-7); HEMATOCRIT 26.7 % (36.0-48.0); HEMOGLOBIN 8.1 g/dL (12-16); IMMATURE GRANULOCYTES 1.6 % (0-5); LYMPHOCYTES 14.9 % (15-50); MCH 27.6 pg (26.0-34.0); MCHC 30.3 g/dL (31.0-37.0); MCV 90.8 fL (80.0-100.0); MEAN PLATELET VOLUME 11.8 fL (7.4-10.4); MONOCYTES 8.9 % (2-11); NEUTROPHILS 72.2 % (40-80); PLATELET COUNT 256 10x3/uL (130-400); RBC 2.94 10x6/uL (4.00-5.40); RDW 16.3 % (11.5-14.5)
[2019-10-30 05:28] LABS: ALBUMIN 2.7 g/dL (3.4-5.0); BILIRUBIN - TOTAL 0.27 mg/dL (0.2-1.3); CALCIUM 8.1 mg/dL (8.5-10.1); CARBON DIOXIDE 27.7 mmol/L (21.0-32.0); POTASSIUM - SERUM 3.7 mmol/L (3.5-5.1); PROTEIN - SERUM 6.5 g/dL (6.4-8.2)
[2019-10-30 09:00] VITALS: BP 199/82
--- NOTE | 2019-10-30 13:28 | NUR ---
PT HAS BEEN AWAKE AND OIRENTED, HEMASPLIT STILL BLEEDING. SANDBAG ON SITE. INSTRUCTED BY AMMONIA OPERATOR TO NOT CAHNGE THE DRESSING, WHERE A CLOT HAS FORMED HELPING SLOW THE BLEEDING. CALLED DR. HENDERSON, HE STATED HE WOULD COME FIX THE SITE WHEN HE WAS DONE WITH HIS CURRENT CASE. STILL WAITING. CL INR EACH, SRX2.
--- NOTE | 2019-10-30 19:36 | NUR ---
RECIEVED UP IN BED WITH EYES OPEN AND TV ON. ALERT AND ORIENTED X4. WEARS BRIEFS . DOES HAVE PERIODS OF INCONT.. RT ARM RESERVED. ABLE TO AMBULATE WITH SBA AND WKR. REMAINS ON 1200CC FLUID RESTRICTION. DSGS TO BLE CDI. DENIES ANY NEEDS AT THIS TIME.
[2019-10-30 20:28] VITALS: BP 123/44
[2019-10-31 05:00] VITALS: BP 206/66
[2019-10-31 05:28] LABS: HEMATOCRIT 28.9 % (36.0-48.0); HEMOGLOBIN 8.9 g/dL (12-16); LYMPHOCYTES 16.2 % (15-50); MCH 27.8 pg (26.0-34.0); MCHC 30.8 g/dL (31.0-37.0); MCV 90.3 fL (80.0-100.0); MEAN PLATELET VOLUME 12.2 fL (7.4-10.4); PLATELET COUNT 254 10x3/uL (130-400); RDW 15.4 % (11.5-14.5); WBC 9.6 10x3/uL (4.8-10.8)
[2019-10-31 05:54] LABS: ALBUMIN 2.7 g/dL (3.4-5.0); ANION GAP 12.6 mmol/L (8-16); BILIRUBIN - TOTAL 0.26 mg/dL (0.2-1.3); CALCIUM 8.4 mg/dL (8.5-10.1); CARBON DIOXIDE 27.7 mmol/L (21.0-32.0); CREATININE - SERUM 2.2 mg/dL (0.6-1.3); POTASSIUM - SERUM 3.3 mmol/L (3.5-5.1); PROTEIN - SERUM 6.6 g/dL (6.4-8.2)
[2019-10-31 10:06] VITALS: BP 140/56
--- NOTE | 2019-10-31 14:36 | NUR ---
PT AWAKE AND ORIENTED, LYING IN BED. NO BLEEDING FROM SITE NTOED TODAY BUT SHE COMPLAINTS OF THE DRESSING. NO QUESITONS CONCERNS OR COMENTS AT THIS TIME. CL IN REACH, SRX2
--- NOTE | 2019-10-31 15:26 | NUR ---
I have reviewed this patient and I concur with the Shift Assessment completed by the Licensed Practical Nurse today this shift.
[2019-10-31 18:06] VITALS: BP 133/64
--- NOTE | 2019-10-31 19:42 | NUR ---
RECIEVED UP IN BED WITH EYES OPEN AND TV ON.ORIENTED X4. REQUIRES ASSIST TO GET OOB. RT ARM RESERVED. LT CHEST HEMO SPLIT. INCONT OF URINE. BRIEF CHANGED AND PERICARE PROVIDED. REMAINS ON 1200CC FLUID RESTRICTION. DSG TO BLE. DENIES ANY NEEDS AT THIS TIME.
[2019-10-31 21:30] VITALS: BP 155/70
--- NOTE | 2019-11-01 00:46 | NUR ---
SPOKE WITH KIM WAY TO CLARIFY EPOETIN TIMES. NEW ORDER TO CHANGE TIME TO POST HD MOWEFR AT 2100. EPOETIN NOT GIVEN AT 0000.
[2019-11-01 05:34] LABS: HEMATOCRIT 29.1 % (36.0-48.0); MCH 27.8 pg (26.0-34.0); MCHC 30.9 g/dL (31.0-37.0); MCV 89.8 fL (80.0-100.0); MEAN PLATELET VOLUME 11.3 fL (7.4-10.4); PLATELET COUNT 269 10x3/uL (130-400); RBC 3.24 10x6/uL (4.00-5.40); RDW 16.2 % (11.5-14.5); WBC 11.1 10x3/uL (4.8-10.8)
[2019-11-01 06:24] LABS: ALBUMIN 2.8 g/dL (3.4-5.0); ANION GAP 14.8 mmol/L (8-16); BILIRUBIN - TOTAL 0.26 mg/dL (0.2-1.3); CALCIUM 8.5 mg/dL (8.5-10.1); CARBON DIOXIDE 25.6 mmol/L (21.0-32.0); CREATININE - SERUM 2.4 mg/dL (0.6-1.3); POTASSIUM - SERUM 3.4 mmol/L (3.5-5.1); PROTEIN - SERUM 6.8 g/dL (6.4-8.2)
[2019-11-01 09:00] VITALS: BP 214/64
[2019-11-01 09:59] LABS: EOSINOPHILS 4 % (0-7); LYMPHOCYTES 30 % (15-50); MONOCYTES 9 % (2-11); NEUTROPHILS 57 % (40-80); PLATELET ESTIMATE NORMAL
--- NOTE | 2019-11-01 10:19 | NUR ---
PT AWAKE AND ORIENTED, SITTING IN THE CHAIR RESTING. PARTICIPATED WITH PHYSICAL THERAPY. NO COMPLAINTS OR CONCERNS A THIS TIME. CL IN REACH,S RX.2 BLOOD SUGAR WAS LOW THIS MORNING (50), TREATED WITH FOOD AND DRINK. NOW BACK UP. REFUSED LANTUS D/T DROP THIS AM.
--- NOTE | 2019-11-01 10:44 | NUR ---
PT TAKEN TO DIALYSIS
--- NOTE | 2019-11-01 13:43 | NUR ---
Nutrition Follow-up: Eating well. HD today. Diet: Renal ADA PO intake: 50-100% Wt: 176# (10/29); 191# (10/26) Last BM: 10/31 Labs noted: K+ 3.4, Glu 42, Alb 2.8 Meds noted: KDur, Miralax, Lantus, Humalog, Protonix -Monitor wt; noted daily wts ordered. -RD following.
--- NOTE | 2019-11-01 14:09 | NUR ---
PT STILL IN DIALYSIS. CALLED TO REQUEST A GUES TRAY. HAS THE MONEY WITH HIM WILL PAY ON DELIVERY.
--- NOTE | 2019-11-01 14:58 | NUR ---
OT NOTE: SEVERAL ATTEMPTS MADE FOR OT EVAL, HOWEVER, PT STILL IN DIALYSIS. WILL ATTEMPT TOMORROW. DONNA BRITO, OTR/L
[2019-11-01 15:00] VITALS: BP 145/66
--- NOTE | 2019-11-01 15:10 | NUR ---
PT BACK FROM DIALYSIS. SHAMPOO CAP ON. NO COMPLAINTS OR CONCERNS, TO COME LATER.
--- NOTE | 2019-11-01 15:32 | NUR ---
WASHED PTS HAIR, BLOW DRIED.
--- NOTE | 2019-11-01 16:02 | MORECARE ---
CASE MANAGEMENT DISCHARGE SUMMARY PATIENT: ADRIA VÁSQUEZ AMARIS UNIT: [id number] ADM DATE: 10/27/19 AGE: 74 : 47 SEX: F ROOM/BED: D.0733 AUTHOR: TA,DOC PHYSICIAN: REFERRING PHYSICIAN: HARISH MAO MD DATE OF SERVICE: 11/01/19 Discharge Plan Patient Name: ADRIA VÁSQUEZ Facility: [facility]:[place] : 1945 Planned Disposition: Anticipated Discharge Date: Discharge Date: Expected LOS: Initial Reviewer: [email or web address] Initial Review Date: 10/27/2019 Generated: 11/01/19 5:01 pm Comments DCP- Discharge Planning Updated by [email or web address]: Alexandra Lopez on 11/01/19 2:[address] Hepatitis panel faxed to Ena Hagen to [phone]. The plans have not been finalized as yet. DCP- Discharge Planning Updated by [email or web address]: Alexandra Lopez on 10/29/19 3:[address] Ena Hdz, with [facility] is arranging a HD chair and time. Patient has requested ORD for treatments. DCP- Discharge Planning Updated by [id number]: Alexandra Lopez on 10/28/19 12:[address] CM met with patient to discuss initial discharge planning. Patient is in agreement to proceed with the assessment. Patient reports that she lives at home independently with her , Fahad ([phone] or [phone]. Patient is alert/oriented. Stairs/steps: PCP: Dr. Baker. Pharmacy: [facility]. Patient states she has been able to obtain all of her prescribed medications. HHS: No. DME: WC, RW, BSC, shower chair. Patient gives permission to speak with family members. Patient is Independent with all ADL's, medication management SUPERINTENDENT CEMETERY..CM discussed the availability of HH, Rehab, SNF, OP Therapy, DME services. Patient denies the need for additional services at this time and feels safe returning to previous environment. Patient was recently hospitalized, then to [facility]. Patient denies the use of community resources SUPERINTENDENT CEMETERY. Transportation at time of discharge: Spouse Or daughter Clarisa Arriaga [phone]. CM will follow ad assist with further DC needs PRN. DCP- Discharge Planning Updated by [email or web address]: Alexandra Jessica on 10/28/19 12:[address] CM notified Ena Hdz of need for HD chair and time. All labs are pending. HemoSplit will be placed 10/28. DCPIA - Discharge Planning Initial Assessment Updated by [email or web address]: Alexandra Jessica on 10/28/19 1:33 pm * Is the patient Alert and Oriented? Yes * PCP Dr. Baker * Pharmacy [facility] * Preadmission Environment Home with Family * ADLs Independent * Equipment Cane * Other Equipment RW, SHOWER CHAIR, RW, ROLLATOR, LIFE CHAIR * List name and contact numbers for known caregivers / representatives who currently or will assist patient after discharge: Clarisa Arriaga (dtr) [phone] Liam Vásquez (spouse) [phone] * Verbal permission to speak to the caregivers and representatives has been obtained from the patient. Yes * Community resources currently utilized None * Additional services required to return to the preadmission environment? Yes * Can the patient safely return to the preadmission environment? Yes * Has this patient been hospitalized within the prior 30 days at any hospital? Yes Last DP export: 10/29/19 3:47 p Patient Name: ADRIA VÁSQUEZ Page [phone] at 1602 All edits/amendments must be made on the electronic document DICTATION DATE: 11/01/19 1601 WATCH MANUFACTURING SUPERVISOR: ROSMERY 11/01/19 1601 RPT#: [id number] DC DATE: STATUS: ADM IN [facility] [address] [place] [address] END OF REPORT
--- NOTE | 2019-11-01 19:30 | NUR ---
REPORT RECIEVED AND ROUNDING COMPLETE. PATIENT SITTING IN BED SIDE CHAIR TALKIN ON HER CELL PHONE. PATIENT HAS A LEFT CHEST MARIELA SPLIT AND A LEFT CHEST FOREARM PIV THAT IS SALINE LOCKED. NO DISTRESS NOTED. PATIENT HAS NO REQUESTS OR COMPLAINTS AT THIS TIME. CALL LIGHT WITHIN REACH.
[2019-11-01 21:21] VITALS: BP 196/55
[2019-11-02 00:39] VITALS: BP 161/56
[2019-11-02 06:27] VITALS: BP 184/54
--- NOTE | 2019-11-02 06:45 | NUR ---
PATIENT REQUESTED JASMEET CRACKERS AND PEANUT BUTTER FOR LOW BLOOD SUGAR
[2019-11-02 07:08] LABS: ALBUMIN 2.9 g/dL (3.4-5.0); ANION GAP 12.2 mmol/L (8-16); BILIRUBIN - TOTAL 0.25 mg/dL (0.2-1.3); CALCIUM 8.4 mg/dL (8.5-10.1); CARBON DIOXIDE 28.6 mmol/L (21.0-32.0); CREATININE - SERUM 1.9 mg/dL (0.6-1.3); POTASSIUM - SERUM 3.8 mmol/L (3.5-5.1); PROTEIN - SERUM 6.3 g/dL (6.4-8.2)
[2019-11-02 08:01] LABS: HEMATOCRIT 29.9 % (36.0-48.0); HEMOGLOBIN 9.2 g/dL (12-16); LYMPHOCYTES 14.5 % (15-50); MCH 27.7 pg (26.0-34.0); MCHC 30.8 g/dL (31.0-37.0); MCV 90.1 fL (80.0-100.0); MEAN PLATELET VOLUME 11.7 fL (7.4-10.4); NEUTROPHILS 70.5 % (40-80); PLATELET COUNT 248 10x3/uL (130-400); RBC 3.32 10x6/uL (4.00-5.40); RDW 15.7 % (11.5-14.5); WBC 9.1 10x3/uL (4.8-10.8)
[2019-11-02 08:22] VITALS: BP 193/66
--- NOTE | 2019-11-02 09:28 | NUR ---
ASSISTED FROM RESTROOM WITH SOFT FORMED BROWN BM. REFUSED MIRALOX. HEMMORRIDS SEEN. CALMOSEPTING APPLIED. IN CHAIR WITH CALL LIGHT IN LAP.
[2019-11-02 11:57] VITALS: BP 184/50
--- NOTE | 2019-11-02 16:28 | NUR ---
DRESSING TO LEFT HEMISPLIT REMOVED. LARGE POPPED TAPE BLISTER (OPEN) SEEN TO RIGHT SHOULDER. COVERED WITH OPSITE. LEFT HEMISPLIT COVERED USING STERILE TECHNIQUE AND LEFT CLOTTED QUARTER SIZE AREA. DATED. WILL STILL NEED TO DO BILATERAL LOWER LEGS. LARGE BRUISED AREA SEEN AT HEMISPLIT AREA.
[2019-11-02 16:32] VITALS: BP 170/57
--- NOTE | 2019-11-02 18:00 | NUR ---
BILATERAL LOWER LEGS DRESSING REOVED. OPEN POPPED BLISTERS TO BACK OF CALVES. RIGHT ONE IS BLEEDING. BOTH WRAPPED WIT ADAPTIC, 4 X 4'S AND KERLIX. TAPED AND DATED.
[2019-11-02 20:00] VITALS: BP 185/58
--- NOTE | 2019-11-02 20:03 | NUR ---
REPORT RECEIVED AND ROUNDING COMPLETE. PATIENT SITTING IN BEDSIDE CHAIR, SHE STATES SHE HAS HAD A GOOD DAY. NO NEEDS VOICED. LEFT HEMASPLIT AND LEFT FOREARM PIV THEY ARE BOTH SALINE LOCKED AT THIS TIME. NO S/SX OF DISTRESS. CALL LIGHT WITHIN REACH. PATIENT IS A&O X4.
[2019-11-03] VITALS: BP 137/39
[2019-11-03 06:57] LABS: HEMATOCRIT 28.5 % (36.0-48.0); HEMOGLOBIN 8.9 g/dL (12-16); LYMPHOCYTES 11.6 % (15-50); MCH 28.3 pg (26.0-34.0); MCHC 31.2 g/dL (31.0-37.0); MCV 90.5 fL (80.0-100.0); MEAN PLATELET VOLUME 11.3 fL (7.4-10.4); NEUTROPHILS 75.1 % (40-80); PLATELET COUNT 223 10x3/uL (130-400); RBC 3.15 10x6/uL (4.00-5.40); RDW 15.7 % (11.5-14.5); WBC 7.9 10x3/uL (4.8-10.8)
[2019-11-03 07:10] LABS: ALBUMIN 2.8 g/dL (3.4-5.0); ANION GAP 13.2 mmol/L (8-16); BILIRUBIN - TOTAL 0.3 mg/dL (0.2-1.3); CALCIUM 8.6 mg/dL (8.5-10.1); CARBON DIOXIDE 26.8 mmol/L (21.0-32.0); CREATININE - SERUM 2.3 mg/dL (0.6-1.3); PROTEIN - SERUM 6.7 g/dL (6.4-8.2)
[2019-11-03] MEDS ORDERED: LISINOPRIL10 MG PO (07:13)
[2019-11-03] MEDS ORDERED: LANTUS INS100 UNITS/ SC (07:14)
--- NOTE | 2019-11-03 07:35 | NUR ---
AM ROUNDING DONE WITH PATIENT SITTING UP IN CHAIR. ON ROOM AIR. DR CROFT MAKING ROUNDS. RIGHT SHOULDER SEEN WITH OPSITE COVERING SKIN TEAR DATED 11/02/19, LEFT CHEST HEMISPLIT SEEN WITH LARGE AREA BRUISED TO SITE. ON FLUID RESTRICTION. RESEVER RIGHT ARM. UP WITH HELP. CALL LIGHT IN USE. BILATERAL LEG DRESSINGS SEEN DATED 11/02/19.
[2019-11-03 09:00] VITALS: BP 198/61
--- NOTE | 2019-11-03 09:15 | NUR ---
OT NOTE: (DOS 11/02/2019) PT COMPLETED SIT TO STAND WITH CGA. PT COMPLETED ADL MOB WITHIN ROOM WITH SPV. PT COMPLETED BUE AROM EXERCISES UP IN CHAIR TOLERATED. PT DID VERY WELL. 5PM-524PM THANK YOU,LISANDRA ADDISON
--- NOTE | 2019-11-03 09:27 | NUR ---
TO DIALYSIS VIA WHEELCHAIR.
--- NOTE | 2019-11-03 13:01 | NUR ---
RETURNS FROM DIALYSIS.
[2019-11-03 15:00] VITALS: BP 167/53
--- NOTE | 2019-11-03 16:00 | NUR ---
CALL PLACED TO DR CROFT OFFICE FOR DISCHARGE ORDERS. SPOKE WITH GERI THE NURSE. AWAITING FURTHER ORDERS.
--- NOTE | 2019-11-03 16:39 | MORECARE ---
CASE MANAGEMENT DISCHARGE SUMMARY PATIENT: ADRIA VÁSQUEZ AMARIS UNIT: [id number] ADM DATE: 10/27/19 AGE: 74 : 47 SEX: F ROOM/BED: D.0728 AUTHOR: TA,DOC PHYSICIAN: REFERRING PHYSICIAN: HARISH MAO MD DATE OF SERVICE: 11/03/19 Discharge Plan Patient Name: ADRIA VÁSQUEZ Facility: [facility]:[place] : 1945 Planned Disposition: Home Health Service Anticipated Discharge Date: 11/03/19 Discharge Date: Expected LOS: 7 Initial Reviewer: [email or web address] Initial Review Date: 10/27/2019 Generated: 11/03/19 5:38 pm Comments DCP- Discharge Planning Updated by [id number]: Alexandra Lopez on 11/01/19 2:[address] Hepatitis panel faxed to E[facility] Hagen to [phone]. The plans have not been finalized as yet. DCP- Discharge Planning Updated by [email or web address]: Alexandra Lopez on 10/29/19 3:[address] Ena Hdz, with [facility] is arranging a HD chair and time. Patient has requested ORD for treatments. DCP- Discharge Planning Updated by [id number]: Alexandra Lopez on 10/28/19 12:[address] CM met with patient to discuss initial discharge planning. Patient is in agreement to proceed with the assessment. Patient reports that she lives at home independently with her , Fahad ([phone] or [phone]. Patient is alert/oriented. Stairs/steps: PCP: Dr. Baker. Pharmacy: [facility]. Patient states she has been able to obtain all of her prescribed medications. HHS: No. DME: WC, RW, BSC, shower chair. Patient gives permission to speak with family members. Patient is Independent with all ADL's, medication management TRACTOR DRIVER..CM discussed the availability of HH, Rehab, SNF, OP Therapy, DME services. Patient denies the need for additional services at this time and feels safe returning to previous environment. Patient was recently hospitalized, then to [facility]. Patient denies the use of community resources TRACTOR DRIVER. Transportation at time of discharge: Spouse Or daughter Clarisa Arriaga [phone]. CM will follow ad assist with further DC needs PRN. DCP- Discharge Planning Updated by [email or web address]: Alexandra Rogerslroy on 10/28/19 12:[address] CM notified Ena Hdz of need for HD chair and time. All labs are pending. HemoSplit will be placed 10/28. DCPIA - Discharge Planning Initial Assessment Updated by [id number]: Alexandra Rogerslroy on 10/28/19 1:33 pm * Is the patient Alert and Oriented? Yes * PCP Dr. Baker * Pharmacy [facility] * Preadmission Environment Home with Family * ADLs Independent * Equipment Cane * Other Equipment RW, SHOWER CHAIR, RW, ROLLATOR, LIFE CHAIR * List name and contact numbers for known caregivers / representatives who currently or will assist patient after discharge: Clarisa Arriaga (dtr) [phone] Liam Vásquez (spouse) [phone] * Verbal permission to speak to the caregivers and representatives has been obtained from the patient. Yes * Community resources currently utilized None * Additional services required to return to the preadmission environment? Yes * Can the patient safely return to the preadmission environment? Yes * Has this patient been hospitalized within the prior 30 days at any hospital? Yes External Providers External Provider: [facility] Next Contact Date: Service Request Date: Service Type: Resolution: Reviewer: Comments: Last DP export: 11/01/19 3:02 p Patient Name: ADRIA VÁSQUEZ Page [phone] at 1639 All edits/amendments must be made on the electronic document DICTATION DATE: 11/03/19 1638 HULL LINE CREW MEMBER: ROSMERY 11/03/19 1638 RPT#: [id number] DC DATE: STATUS: ADM IN [facility] [address] [place] [address] END OF REPORT
--- NOTE | 2019-11-03 17:03 | MORECARE ---
CASE MANAGEMENT DISCHARGE SUMMARY PATIENT: ADRIA VÁSQUEZ AMARIS UNIT: [id number] ADM DATE: 10/27/19 AGE: 74 : 46 SEX: F ROOM/BED: D.1023 AUTHOR: TA,DOC PHYSICIAN: REFERRING PHYSICIAN: HARISH MAO MD DATE OF SERVICE: 11/03/19 Discharge Plan Patient Name: ADRIA VÁSQUEZ Facility: [facility]:[place] : 1945 Planned Disposition: Home Health Service Anticipated Discharge Date: 11/03/19 Discharge Date: Expected LOS: 7 Initial Reviewer: [email or web address] Initial Review Date: 10/27/2019 Generated: 11/03/19 6:02 pm Comments DCP- Discharge Planning Updated by [email or web address]: Alexandra Lopez on 11/03/19 4:[address] Notified of HD Schedule per Ena Hdz: M/W/F ORDC, first appointment @1100 11/05/19. Patient's scheduled appointment thereafter will be ORDC, M/W/F @1130. DCP- Discharge Planning Updated by [email or web address]: Alexandra Lopez on 11/01/19 2:[address] Hepatitis panel faxed to [facility] Hagen to [phone]. The plans have not been finalized as yet. DCP- Discharge Planning Updated by [email or web address]: Alexandra Lopez on 10/29/19 3:[address] Ena Hdz, with [facility] is arranging a HD chair and time. Patient has requested ORDC for treatments. DCP- Discharge Planning Updated by [email or web address]: Alexandra Lopez on 10/28/19 12:[address] CM met with patient to discuss initial discharge planning. Patient is in agreement to proceed with the assessment. Patient reports that she lives at home independently with her , Fahad ([phone] or [phone]. Patient is alert/oriented. Stairs/steps: PCP: Dr. Baker. Pharmacy: [facility]. Patient states she has been able to obtain all of her prescribed medications. HHS: No. DME: WC, RW, BSC, shower chair. Patient gives permission to speak with family members. 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 Patient denies the need for additional services at this time and feels safe returning to previous environment. Patient was recently hospitalized, then to [facility]. Patient denies the use of community resources TRANSMISSION SYSTEMS OPERATOR. Transportation at time of discharge: Spouse Or daughter Clarisa Arriaga [phone]. CM will follow ad assist with further DC needs PRN. DCP- Discharge Planning Updated by [email or web address]: Alexandra Lopez on 10/28/19 12:[address] CM notified Ena Hdz of need for HD chair and time. All labs are pending. HemoSplit will be placed 10/28. DCPIA - Discharge Planning Initial Assessment Updated by [email or web address]: Alexandra Lopez on 10/28/19 1:33 pm * Is the patient Alert and Oriented? Yes * PCP Dr. Baker * Pharmacy [facility] * Preadmission Environment Home with Family * ADLs Independent * Equipment Cane * Other Equipment RW, SHOWER CHAIR, RW, ROLLATOR, LIFE CHAIR * List name and contact numbers for known caregivers / representatives who currently or will assist patient after discharge: Clarisa Arriaga (dtr) [phone] Liam Vásquez (spouse) [phone] * Verbal permission to speak to the caregivers and representatives has been obtained from the patient. Yes * Community resources currently utilized None * Additional services required to return to the preadmission environment? Yes * Can the patient safely return to the preadmission environment? Yes * Has this patient been hospitalized within the prior 30 days at any hospital? Yes Last DP export: 11/03/19 3:39 p Patient Name: ADRIA VÁSQUEZ Page [phone] at 1703 All edits/amendments must be made on the electronic document DICTATION DATE: 11/03/191702 TOUCH UP WORKER: ROSMERY 11/03/191702 RPT#: [id number] DC DATE: STATUS: ADM IN [facility] [address] [place] [address] END OF REPORT
--- NOTE | 2019-11-03 17:10 | MORECARE ---
CASE MANAGEMENT DISCHARGE SUMMARY PATIENT: ADRIA VÁSQUEZ AMARIS UNIT: [id number] ADM DATE: 10/27/19 AGE: 74 : 46 SEX: F ROOM/BED: D.7469 AUTHOR: TA,DOC PHYSICIAN: REFERRING PHYSICIAN: HARISH MAO MD DATE OF SERVICE: 11/03/19 Discharge Plan Patient Name: ADRIA VÁSQUEZ Facility: [facility]:[place] : 1945 Planned Disposition: Home Health Service Anticipated Discharge Date: 11/03/19 Discharge Date: Expected LOS: 7 Initial Reviewer: [email or web address] Initial Review Date: 10/27/2019 Generated: 11/03/19 6:09 pm Comments DCP- Discharge Planning Updated by [email or web address]: Alexandra Lopez on 11/03/19 4:[address] Notified of HD Schedule per Ena Hdz: M/W/F ORDC, first appointment @1100 11/05/19. Patient's scheduled appointment thereafter will be ORDC, M/W/F @1130. Faxed HHS order to Daniella with [facility]. SOC will be Friday am, prior to HD. DCP- Discharge Planning Updated by [email or web address]: Alexandra Lopez on 11/01/19 2:[address] Hepatitis panel faxed to Ena Hagen to [phone]. The plans have not been finalized as yet. DCP- Discharge Planning Updated by [email or web address]: Alexandra Lopez on 10/29/19 3:[address] Ena Hdz, with [facility] is arranging a HD chair and time. Patient has requested ORDC for treatments. DCP- Discharge Planning Updated by [id number]: Alexandra Lopez on 10/28/19 12:[address] CM met with patient to discuss initial discharge planning. Patient is in agreement to proceed with the assessment. Patient reports that she lives at home independently with her , Fahad ([phone] or [phone]. Patient is alert/oriented. Stairs/steps: PCP: Dr. Baker. [facility] Patient states she has been able to obtain all of her prescribed medications. HHS: No. DME: WC, RW, BSC, shower chair. Patient gives permission to speak with family members. Patient is Independent with all ADL's, medication management SUPERANNUATION CLERK..CM discussed the availability of HH, Rehab, SNF, OP Therapy, DME services. Patient denies the need for additional services at this time and feels safe returning to previous environment. Patient was recently hospitalized, then to [facility]. Patient denies the use of community resources SUPERANNUATION CLERK. Transportation at time of discharge: Spouse Or daughter Clarisa Arriaga [phone]. CM will follow ad assist with further DC needs PRN. DCP- Discharge Planning Updated by [email or web address]: Alexandra Lopez on 10/28/19 12:[address] CM notified Ena Hdz of need for HD chair and time. All labs are pending. HemoSplit will be placed 10/28. DCPIA - Discharge Planning Initial Assessment Updated by [email or web address]: Alexandra Lopez on 10/28/19 1:33 pm * Is the patient Alert and Oriented? Yes * PCP Dr. Baker * Pharmacy [facility] * Preadmission Environment Home with Family * ADLs Independent * Equipment Cane * Other Equipment RW, SHOWER CHAIR, RW, ROLLATOR, LIFE CHAIR * List name and contact numbers for known caregivers / representatives who currently or will assist patient after discharge: Clarisa Arriaga (dtr) [phone] Liam Vásquez (spouse) [phone] * Verbal permission to speak to the caregivers and representatives has been obtained from the patient. Yes * Community resources currently utilized None * Additional services required to return to the preadmission environment? Yes * Can the patient safely return to the preadmission environment? Yes * Has this patient been hospitalized within the prior 30 days at any hospital? Yes Last DP export: 11/03/19 4:03 p Patient Name: ADRIA VÁSQUEZ Page [phone] at 1710 All edits/amendments must be made on the electronic document DICTATION DATE: 11/03/191708 SHEAR HELPER: ROSMERY 11/03/191708 RPT#: [id number] DC DATE: STATUS: ADM IN [facility] [address] [place] [address] END OF REPORT
--- NOTE | 2019-11-03 17:55 | NUR ---
DRESSING TO LEFT HEMISPLIT CHANGED USING STERILE TECHNIQUE. BILATERAL LOWER LEG DRESSINGS CHANGED. TOLERATED WELL. STILL AWAITING FINAL DISCHARGE FROM DR CROFT OFFICE. SPOUSE AT BEDSIDE.
--- NOTE | 2019-11-03 19:00 | NUR ---
REPORT RECEIVED, WILL CONTINUE POC. PATIENT IS AAXO4, SITTING UP IN CHAIR WITH AT BEDSIDE. NO S/S OF DISTRESS OBSERVED, RR EVEN AND UNLABORED ON ROOM AIR. PATIENT UPSET BECAUSE DR. CROFT TOLD HER THIS AM THAT SHE WOULD BE DC'D BUT NO DC ORDERS HAVE BEEN RECEIVED PER DAY NURSE CEIL GARCE, ALLYSSA A MESSAGE HAS ALREADY BEEN LEFT WITH HIS NURSE. PATIENT DENIES FURTHER NEEDS AT THIS TIME. CL IN REACH, BED LOCKED AND LOWERED. WILL CTM.
[2019-11-03 20:00] VITALS: BP 149/44
[2019-11-04 04:00] VITALS: BP 139/52
[2019-11-04 05:01] LABS: HEMATOCRIT 27.2 % (36.0-48.0); HEMOGLOBIN 8.4 g/dL (12-16); LYMPHOCYTES 16.5 % (15-50); MCH 27.9 pg (26.0-34.0); MCHC 30.9 g/dL (31.0-37.0); MCV 90.4 fL (80.0-100.0); MEAN PLATELET VOLUME 11.5 fL (7.4-10.4); NEUTROPHILS 69.9 % (40-80); PLATELET COUNT 194 10x3/uL (130-400); RBC 3.01 10x6/uL (4.00-5.40); RDW 15.7 % (11.5-14.5)
[2019-11-04 05:23] LABS: ALBUMIN 2.6 g/dL (3.4-5.0); ANION GAP 11.6 mmol/L (8-16); BILIRUBIN - TOTAL 0.22 mg/dL (0.2-1.3); CALCIUM 8.6 mg/dL (8.5-10.1); CARBON DIOXIDE 29.2 mmol/L (21.0-32.0); CREATININE - SERUM 2.1 mg/dL (0.6-1.3); MAGNESIUM - SERUM 1.9 mg/dL (1.8-2.4); PHOSPHOROUS 2.8 mg/dL (2.5-4.9); POTASSIUM - SERUM 3.8 mmol/L (3.5-5.1); PROTEIN - SERUM 6.3 g/dL (6.4-8.2)
--- NOTE | 2019-11-04 08:06 | NUR ---
I CALLED HAO AT DR CROFT OFFICE FOR FOLLOW UP APPT. AWAITING CALL BACK.
[2019-11-04 08:30] VITALS: BP 128/44
--- NOTE | 2019-11-04 08:41 | MORECARE ---
CASE MANAGEMENT DISCHARGE SUMMARY PATIENT: GALILEA VÁSQUEZ AMARIS UNIT: [id number] ADM DATE: 10/27/19 AGE: 74 : 47 SEX: F ROOM/BED: D.0127 AUTHOR: TA,DOC PHYSICIAN: REFERRING PHYSICIAN: HARISH MAO MD DATE OF SERVICE: 11/04/19 Discharge Plan Patient Name: GALILEA VÁSQUEZ Facility: [facility]:[place] : 1945 Planned Disposition: Home Health Service Anticipated Discharge Date: 11/03/19 Discharge Date: Expected LOS: 7 Initial Reviewer: [email or web address] Initial Review Date: 10/27/2019 Generated: 11/04/19 9:40 am Comments DCP- Discharge Planning Updated by [email or web address]: Alexandra Lopez on 11/04/19 7:[address] Patient's Welcome Letter for HD has been delivered to the patient. [facility] will begin SOC Friday morning. Spouse will drive patient home and to HD @[facility]. DCP- Discharge Planning Updated by [email or web address]: Alexandra Lopez on 11/03/19 4:[address] Notified of HD Schedule per Ena Hdz: M/W/F ORDC, first appointment @1100 11/05/19. Patient's scheduled appointment thereafter will be ORDC, M/W/F @1130. Faxed HHS order to Daniella with [facility]. SOC will be Friday am, prior to HD. DCP- Discharge Planning Updated by [email or web address]: Alexandra Lopez on 11/01/19 2:[address] Hepatitis panel faxed to Ena Hagen to [phone]. The plans have not been finalized as yet. DCP- Discharge Planning Updated by [email or web address]: Alexandra Lopez on 10/29/19 3:[address] Ena Hdz, with [facility] is arranging a HD chair and time. Patient has requested [facility] for treatments. DCP- Discharge Planning Updated by [email or web address]: Alexandra Lopez on 10/28/19 12:[address] CM met with patient to discuss initial discharge planning. Patient is in agreement to proceed with the assessment. Patient reports that she lives at home independently with her , Fahad ([phone] or [phone]. Patient is alert/oriented. Stairs/steps: PCP: Dr. Baker. Pharmacy: [facility]. Patient states she has been able to obtain all of her prescribed medications. HHS: No. DME: WC, RW, BSC, shower chair. Patient gives permission to speak with family members. 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 Patient denies the need for additional services at this time and feels safe returning to previous environment. Patient was recently hospitalized, then to [facility]. Patient denies the use of community resources TOP COLLAR MAKER. Transportation at time of discharge: Spouse Or daughter Clarisa Arriaga [phone]. CM will follow ad assist with further DC needs PRN. DCP- Discharge Planning Updated by [email or web address]: Alexandra Lopez on 10/28/19 12:[address] CM notified Ena Hdz of need for HD chair and time. All labs are pending. HemoSplit will be placed 10/28. DCPIA - Discharge Planning Initial Assessment Updated by [id number]: Alexandra Lopez on 10/28/19 1:33 pm * Is the patient Alert and Oriented? Yes * PCP Dr. Baker * Pharmacy [facility] * Preadmission Environment Home with Family * ADLs Independent * Equipment Cane * Other Equipment RW, SHOWER CHAIR, RW, ROLLATOR, LIFE CHAIR * List name and contact numbers for known caregivers / representatives who currently or will assist patient after discharge: Clarisa Arriaga (dtr) [phone] Liam Vásquez (spouse) [phone] * Verbal permission to speak to the caregivers and representatives has been obtained from the patient. Yes * Community resources currently utilized None * Additional services required to return to the preadmission environment? Yes * Can the patient safely return to the preadmission environment? Yes * Has this patient been hospitalized within the prior 30 days at any hospital? Yes Coverage Notice Reviewer: [id number] - Alexandra Lopez Notice Issued Date-Time: 11/03/2019 17:23 Notice Type: IM Discharge Notice Notice Delivered To: Patient Relationship to Patient: Self Border Patrol Agent Name: Galilea Vásquez Delivery Method: HAND - Hand Delivered Isha Days: Prior Verbal Notification: Recipient Understood Notice: Yes Recipient Signature: Yes Med Rec Note Co-signed by Attending: Coverage Notice Comment: FIDENCIO GUTIERREZ Reviewer: [id number] Dulce Maria Lopez Notice Issued Date-Time: 11/03/2019 17:23 Notice Type: Patient Choice Letter Notice Delivered To: Patient Relationship to Patient: Self Border Patrol Agent Name: Galilea Vásquez Delivery Method: - Isha Days: Prior Verbal Notification: Recipient Understood Notice: Recipient Signature: Med Rec Note Co-signed by Attending: Coverage Notice Comment: Last DP export: 11/03/19 4:10 p Patient Name: GALILEA VÁSQUEZ Page [id number] at 0841 All edits/amendments must be made on the electronic document DICTATION DATE: 11/04/19840 FLORAL ARTIST: ROSMERY 11/04/19840 RPT#: [id number] FIDENCIO DATE: STATUS: ADM IN [facility] [address] [place] [address] END OF REPORT
--- NOTE | 2019-11-04 10:52 | NUR ---
D/C INSTRUCTIONS REVIEWED WITH PT AND FAMILY MEMBER. BOTH VERBALIZED UNDERSTANDING. IV D/C WITH CATHETER TIP INTACT. ASSISTED WITH PT GETTING DRESSED AND BELONGINGS TOGETHER. LEFT VIA WHEELCHAIR WITH ALL BELONGINGS
--- NOTE | 2019-11-04 14:25 | MORECARE ---
CASE MANAGEMENT DISCHARGE SUMMARY PATIENT: ADRIA VÁSQUEZ AMARIS UNIT: [id number] ADM DATE: 10/27/19 AGE: 74 : 47 SEX: F ROOM/BED: D.4771 AUTHOR: TA,ARMANDO PHYSICIAN: REFERRING PHYSICIAN: HARISH MAO MD DATE OF SERVICE: 11/04/19 Discharge Plan Patient Name: ADRIA VÁSQUEZ Facility: [facility]:[place] : 1945 Planned Disposition: Home Health Service Anticipated Discharge Date: 11/03/19 Discharge Date: 11/04/2019 Expected LOS: 7 Initial Reviewer: [email or web address] Initial Review Date: 10/27/2019 Generated: 11/04/19 3:25 pm Comments DCP- Discharge Planning Updated by [email or web address]: Alexandra Lopez on 11/04/19 7:[address] Patient's Welcome Letter for HD has been delivered to the patient. [facility] will begin SOC Friday morning. Spouse will drive patient home and to HD @[facility]. DCP- Discharge Planning Updated by [email or web address]: Alexandra Lopez on 11/03/19 4:[address] Notified of HD Schedule per Ena Hdz: M/W/F ORDC, first appointment @1100 11/05/19. Patient's scheduled appointment thereafter will be ORDC, M/W/F @1130. Faxed HHS order to Daniella with [facility]. SOC will be Friday am, prior to HD. DCP- Discharge Planning Updated by [id number]: Alexandra Loepz on 11/01/19 2:[address] Hepatitis panel faxed to Ena Hagen to [phone]. The plans have not been finalized as yet. DCP- Discharge Planning Updated by [email or web address]: Alexandra Lopez on 10/29/19 3:[address] Ena Hdz, with [facility] is arranging a HD chair and time. Patient has requested [facility] for treatments. DCP- Discharge Planning Updated by [email or web address]: Alexandra Lopez on 10/28/19 12:[address] CM met with patient to discuss initial discharge planning. Patient is in agreement to proceed with the assessment. Patient reports that she lives at home independently with her , Fahad ([phone] or [phone]. Patient is alert/oriented. Stairs/steps: PCP: Dr. Baker. Pharmacy: [facility]. Patient states she has been able to obtain all of her prescribed medications. HHS: No. DME: WC, RW, BSC, shower chair. Patient gives permission to speak with family members. 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 Patient denies the need for additional services at this time and feels safe returning to previous environment. Patient was recently hospitalized, then to [facility]. Patient denies the use of community resources SECURITIES SUPERVISOR. Transportation at time of discharge: Spouse Or daughter Clarisa Arriaga [phone]. CM will follow ad assist with further DC needs PRN. DCP- Discharge Planning Updated by [id number]: Alexandra Lopez on 10/28/19 12:[address] CM notified [facility] Hdz of need for HD chair and time. All labs are pending. HemoSplit will be placed 10/28. DCPIA - Discharge Planning Initial Assessment Updated by [id number]: Alexandra Lopez on 10/28/19 1:33 pm * Is the patient Alert and Oriented? Yes * PCP Dr. Baker * Pharmacy [facility] * Preadmission Environment Home with Family * ADLs Independent * Equipment Cane * Other Equipment RW, SHOWER CHAIR, RW, ROLLATOR, LIFE CHAIR * List name and contact numbers for known caregivers / representatives who currently or will assist patient after discharge: Clarisa Arriaga (dtr) [phone] Liam Vásquez (spouse) [phone] * Verbal permission to speak to the caregivers and representatives has been obtained from the patient. Yes * Community resources currently utilized None * Additional services required to return to the preadmission environment? Yes * Can the patient safely return to the preadmission environment? Yes * Has this patient been hospitalized within the prior 30 days at any hospital? Yes Coverage Notice Reviewer: [id number] - Alexandra Lopez Notice Issued Date-Time: 11/03/2019 17:23 Notice Type: IM Discharge Notice Notice Delivered To: Patient Relationship to Patient: Self Retail Solar Advisor Name: Adria Vásquez Delivery Method: HAND - Hand Delivered Isha Days: Prior Verbal Notification: Recipient Understood Notice: Yes Recipient Signature: Yes Med Rec Note Co-signed by Attending: Coverage Notice Comment: DC [facility] Reviewer: [id number] Dulce Maria Lopez Notice Issued Date-Time: 11/03/2019 17:23 Notice Type: Patient Choice Letter Notice Delivered To: Patient Relationship to Patient: Self Retail Solar Advisor Name: Adria Vásquez Delivery Method: - Isha Days: Prior Verbal Notification: Recipient Understood Notice: Recipient Signature: Med Rec Note Co-signed by Attending: Coverage Notice Comment: Last DP export: 11/04/19 7:41 a Patient Name: ADRIA VÁSQUEZ Page [phone] at 1425 All edits/amendments must be made on the electronic document DICTATION DATE: 11/04/19 1425 PROJECT DESIGN ENGINEER: ROSMERY 11/04/19 1425 RPT#: [id number] DC DATE:11/04/19 STATUS: DIS IN [facility] [address] [place] [address] END OF REPORT
--- NOTE | 2019-11-04 18:45 | NUR ---
OT NOTE: PT COMPLETED SIT TO STAND WITH SPV. PT COMPLETED ADL MOBIILITY WITH RW REQUIRED SPV. PT STATED SHE IS PACKING TO GO HOME. [phone] THANK YOU,LISANDRA ADDISON
== END 2019-11-04 10:54 | disposition home health service (06) | DRG 682 ==
LOC: D.M2 18:17
PROVIDERS: Family Medicine; Internal Medicine Nephrology; Surgery; ADMIT Family Medicine; ATTEND Family Medicine
PROC: B5171ZA Fluoroscopy of Left Subclavian Vein using Low Osmolar Contrast, Guidance (ICD-10-PCS; 2019-10-28)
PROC: 05H633Z Insertion of Infusion Device into Left Subclavian Vein, Percutaneous Approach (ICD-10-PCS; principal; 2019-10-28 10:30)
DX: I12.0 Hypertensive chronic kidney disease with stage 5 chronic kidney disease or end stage renal disease (principal); N18.6 End stage renal disease; N17.9 Acute kidney failure, unspecified; E11.22 Type 2 diabetes mellitus with diabetic chronic kidney disease; E87.6 Hypokalemia; D63.1 Anemia in chronic kidney disease; E78.5 Hyperlipidemia, unspecified; Z86.73 Personal history of transient ischemic attack (TIA), and cerebral infarction without residual deficits